=== PATIENT | male | born 1940 | race Caucasian/White ===

== ENCOUNTER → 2016-07-21 | Outpatient (CLI) | payer OTHER ==
[~2016-07-21] MED LIST: ASPCH81X PO; ATOR-26 PO; COEN150C PO; DOXA-10 PO; FINA5TAB PO; FURO-85 PO; LANS30CA63 PO; LEVO125T72 PO; METO25TA3 PO; NITR0.4S UT; OMEP40CA PO
--- NOTE | 2016-07-21 20:31 | DIAGNOSTIC IMAGING REPORT ---
CHEST 2 VIEWS ROUTINE CLINICAL HISTORY: FEVER, COUGH COMPARISON STUDY: 05/19/2014 FINDINGS: The cardiac and mediastinal contours remain stable. There is bilateral hilar prominence, similar to the prior study and likely secondary to prominent central pulmonary arteries. There is no acute parenchymal consolidation. There is no failure. There are no significant pleural effusions.[ IMPRESSION: No active disease in the chest. Electronically signed by: Jean Carlos Andujar M.D. 07/21/2016 8:29 PM Dictated Date/Time: 07/21/2016 8:29 PM
== END | disposition home or self-care (01) ==
LOC: C.RAD 20:01
PROVIDERS: ATTEND Hospitalist
DX: R50.9 Fever, unspecified (principal); R05 Cough

== ENCOUNTER 2024-01-08 21:20 | Inpatient (IN) ==
--- OUTSIDE RECORDS SUMMARY | 2024-01-08 21:27 | External Medical Summary | Summary of Care ---
Author Name Unknown Organization [facility] Address [address] [place] [address] Phone [phone] Care Team Providers Care Pipe Organ Builder Name Role Phone Ainsley Cho MD Primary Care Provider Reason for Visit * Reason Comments Medication Refill Encounter Details Date Type Department Care Team (Late st Contact Info) Description 01/06/2024 Refill [facility] [address] [place] [address] Ainsley Cho MD [address] [place] [address] Routine medical exam*; Gastroesophageal reflux disease without esophagitis; Encounter for long-term (current) use of medications Allergies Active Allergy Reactions Criticality Noted Date Comments Iodine 10/18/2003 Hives Meperidine And Related 10/18/2003 Hives Sulfa Antibiotics 02/04/1999 hives documented as of this encounter (statuses as of 01/06/2024) Medications Medication Sig Dispensed Refills Start Date End Date Status ASPIRIN 81 MG PO TBECIndications:jatinder es in the evening Take by mouth. Indications: takes in the evening 90 Tab 3 4 Active Diclofenac Sodium 1 % External Gel (Voltaren) Apply topically to affected area 4 times a day as needed for Pain. Apply to L knee 100 g 11 1 Active Triamcinolone Acetonide 0.1 % External Cream (Aristocort) Apply topically to affected area 2 times a day . To affected area. 80 g 5 2 Active Acetaminophen 500 MG Oral Tablet (Tylenol) 2 caps every 8 hours for 3 days, then 1 cap every 4 hours as needed for pain. Do not exceed 3000mg acetaminophen (Tylenol) every 24 hours. 1 Tablet 2 Active Nitroglycerin 0.4 MG Sublingual Tablet Sublingual (Nitrostat)Indicati ons:ASCVD (arteriosclerotic cardiovascular disease),Old myocardial infarct Place 1 Tablet under the tongue as needed for Pain, Chest. May repeat 3 times. If chest pain continues, call 911. 25 Tablet 5 3 Active Additional Information Patient not taking.Reported on 12/23/2022 Finasteride 5 MG Oral Tablet (Proscar)Indication s:Acute urinary retention Take 1 Tablet by mouth in the morning. 90 Tablet 3 3 Active predniSONE 50 MG Oral Tablet (Deltasone)Indicati ons:Malignant neoplasm of sigmoid colon (HCC) Take 1 tablet (50mg) by mouth 13 hours, 7 hours and [address] scan. 3 Tablet 3 Active diphenhydrAMINE HCl 25 MG Oral Capsule (Benadryl Allergy)Indications :Malignant neoplasm of sigmoid colon (HCC) Take 1 capsule (50mg) by mouth [address] scan. 2 Capsule 3 Active Metoprolol Succinate ER 25 MG Oral Tablet Extended Release 24 Hour (toPROL XL)Indications:ASCV D (arteriosclerotic cardiovascular disease),Frequent PVCs Take 1 Tablet by mouth daily. 90 Tablet 3 3 Active Furosemide 20 MG Oral Tablet (Lasix)Indications: ASCVD (arteriosclerotic cardiovascular disease),Heart failure, systolic, due to CAD (HCC) Take 1 Tablet by mouth once a day on Tuesday, Tuesday, and Tuesday only. 50 Tablet 3 3 Active Famotidine 20 MG Oral Tablet (Pepcid)Indications :Gastroesophageal reflux disease without esophagitis Take 1 Tablet by mouth in the morning. 90 Tablet 3 4 Active Atorvastatin Calcium 80 MG Oral Tablet (Lipitor)Indication s:Old myocardial infarct,ASCVD (arteriosclerotic cardiovascular disease),Kidney disease, chronic, stage III (GFR 30-59 ml/min) (HCC),Dyslipidemia, goal LDL below 100 TAKE ONE TABLET BY MOUTH EVERY MORNING 90 Tablet 3 4 08/30/19 25 Active Doxazosin Mesylate 8 MG Oral TabletIndications:H TN, goal below 130/80 Take 1 Tablet by mouth at bedtime. 90 Tablet 2 4 Active Levothyroxine Sodium 125 MCG Oral Tablet (Levoxyl)Indication s:Acquired hypothyroidism Take 1 Tablet by mouth in the morning. (at least 30 min prior to breakfast or other meds). 90 Tablet 1 4 Active Omeprazole 20 MG Oral Capsule Delayed Release (PriLOSEC)Indicatio ns:Gastroesophageal reflux disease without esophagitis Take 1 Capsule by mouth in the morning. 1 hour before the first meal of the day. 90 Capsule 4 Active Omeprazole 40 MG Oral Capsule Delayed Release (PriLOSEC)Indicatio ns:Gastroesophageal reflux disease with esophagitis Take one tablet by mouth daily. 10 Cap 1 01/06/20 24 Discontinu ed(Medicat ion List Clean Up) Omeprazole 20 MG Oral Capsule Delayed Release (PriLOSEC)Indicatio ns:Gastroesophageal reflux disease without esophagitis Take 1 Capsule by mouth in the morning. 1 hour before the first meal of the day. 90 Capsule 3 3 01/06/20 24 Discontinu ed(Refill) documented as of this encounter (statuses as of 01/06/2024) Active Problems Problem Noted Date Diagnosed Date Chronic kidney disease, stage 3a 07/20/2023 Colon cancer 04/30/2022 Post-op pain 04/30/2022 Hypertensive heart disease w ith systolic heart failure and stage 3a chronic kidney disease 07/14/2021 Other specified peripheral vascular diseases HTN, goal below 130/80 11/27/2020 Other emphysema 03/27/2020 Heart failure, systolic, due to CAD 08/30/2018 Chronic obstructive pulmonary disease 08/30/2018 Chronic kidney disease, stage 3 unspecified 06/2017 History of tobacco use 02/25/2017 Dyslipidemia, goal LDL below 70 08/25/2016 Frequent PVCs 11/07/2015 Inguinal hernia 11/07/2015 Sun-damaged skin 10/25/2013 DVT prophylaxis 10/16/2012 Gastroesophageal reflux disease without esophagi tis 04/17/2012 Elevated prostate specific antigen (PSA) 012 ASCVD (arteriosclerotic cardiovascular disease) 04/17/2012 Hypothyroidism 04/17/2012 Old myocardial infarct 04/17/2012 Calculus of ureter documented as of this encounter (statuses as of 01/06/2024) Resolved Problems Problem Noted Date Diagnosed Date Resolved Date Heart failure 11/27/2020 01/01/2021 Prediabetes 07/26/2017 08/26/2017 Overview: Per Prediabetes protocol #1 Influenza-like illness 08/14/201502/25 Kidney disease, chronic, sta ge III (GFR 30-59 ml/min) 07/08/2015 02/25/2017 DVT of upper extremity (deep vein thrombosis) 11/23/19 15 06/20/2015 Overview: Right upper extremity DVT Inflamed epidermoid cyst of skin 10/04/2014 07/08/2015 Kidney disease, chronic, sta ge III (GFR 30-59 ml/min) 10/04/2014 10/31/2014 Myocardial infarction, infer ior wall, subsequent care 05/27/2014 07/08/2015 Heart failure, systolic, due to CAD 05/27/2014 07/08/2015 Arm pain, right 05/27/2014 08/26/2014 DVT of axillary vein, acute right 05/27/2014 11/22/2014 Urinary retention 05/24/2014 07/08/2015 Sebaceous cyst 01/07/2014 02/25/2017 Microalbuminuria 10/26/2013 07/08/2015 Need for shingles vaccine 10/25/2013 Dermatitis 05/17/2013 02/25/2017 Refused influenza vaccine 04/26/2013 Cough 10/17/2012 02/25/2017 COPD exacerbation 08/22/2012 04/25/2014 Cough 08/22/2012 02/25/2017 Allergic rhinitis 04/17/2012 08/23/2018 Routine medical exam 09/28/2011 017 Neoplasm of uncertain behavior of skin 09/28/2011 02/25/2017 Overview: left posterior scalp Dyslipidemia, goal LDL below 100 09/28/2011 02/25/2017 Tobacco pipe smoker 09/28/2011 04/26/20 13 OVERWEIGHT, BMI= 25.99 09/14/10 09/14/2010 02/25/2017 OVERWEIGHT, BMI= 26.55 08/19/09 08/19/2009 02/25/2017 Tobacco use disorder 08/19/2009 012 Routine medical exam 08/19/2009 016 Acute URI 08/19/2009 02/25/2017 ADVANCE DIRECTIVE INFORMATION 12/21/2004 02/25/2017 Overview: Yes, Patient instructed to provide copy of advance directive for provider to review and to be scanned into Electronic Medical Record Elevated prostate specific antigen (PSA) 12/06/2002 04/17/2012 Benign prostatic hyperplasia 12/06/2002 08/19/2009 Overview: ICD-10 update of inactive term ICD-10 update of inactive term Nocturia 12/06/2002 02/25/2017 Old myocardial infarct 02/11/199904/17 ASCVD (arteriosclerotic card iovascular disease) 04/17/2012 Dyslipidemia, goal LDL below 70 09/28/2011 Hypothyroidism 04/17/2012 Esophageal reflux 04/17/2012 Kidney disease, chronic, sta ge III (GFR 30-59 ml/min) 04/17/2012 Kidney disease, chronic, sta ge III (GFR 30-59 ml/min) 02/27/2016 documented as of this encounter (statuses as of 01/06/2024) Immunizations Name Administration Dates Next Due COVID-19 mRNA, LNP-s, No Pre serve, 2-Dose Series (Pfizer) 10/18/2020,09/26/2020 Pneumococcal Conjugate Vacc, 13 Valent (Prevnar) 08/25/2016 Pneumococcal Polysaccharide PPV23 (Pneumovax) Season Influenza, Quad, PF, Adjuvanted, 65+ Yrs, IM (FLUAD) 03/27/2020 Seasonal Influenza, PF, 6 M & above, IM , (FluLaval or Fluzone) 03/05/2019,02/28/2018 Seasonal Influenza, Quadrivalent Hd (Fluzone Hd) 04/01/2023,07/14/2022 Seasonal Influenza, Quadrivalent, No Preserve, I M 02/25/2017,02/26/2016 TD - Tetanus/Diptheria (ADULT) 07/08/2006 TDAP (age 10 and older)(Boostrix) 07/08/2016 documented as of this encounter Social History Tobacco Use Types Packs/Day Years Used Date Smoking Tobacco: Former Cigarettes 0.5 55 0 08/14/1957 - 08/14/2012 Pipe Cigars Passive Smoke Exposure: Never Smokeless Tobacco: Never Alcohol Use Standard Drinks/Week Comments Yes 0 (1 standard drink = 0.6 oz pur e alcohol) once or twice a year PHQ-2 Answer Date Recorded PHQ-2 Score 0 12/04/2019 Hunger Vital Sign Answer Date Recorded Worried About Running Out of Food in the Last Ye ar Never true 12/04/2019 Ran Out of Food in the Last Year Never true 12/04/2019 Sex and Gender Information Value Date Recorded Sex Assigned at Male 12/04/2019 3:47 PM EDT Gender Identity Male 12/04/2019 3:47 PM EDT Sexual Orientation Straight 12/04/2019 3: 47 PM EDT Job Start Date Occupation Industry Not on file Not on file Not on file documented as of this encounter Functional Status Functional Status Response Date of Assess ment Are you deaf or do you have serious difficulty h earing? No 04/28/2022 Are you blind or do you have serious difficulty seeing, even when wearing glasses? No 04/28/2022 Do you have serious difficul ty walking or climbing stairs? (5 years old or older) No 04/28/2022 Do you have difficulty dress ing or bathing? (5 years old or older) No 04/28/2022 Because of a physical, menta l, or emotional condition, do you have difficulty doing errands alone such as visiting a doctor s office or shopping? (15 years old or older) No 04/28/20 22 Cognitive Status Response Date of Assessm ent Because of a physical, menta l, or emotional condition, do you have serious difficulty concentrating, remembering, or making decisions? (5 years old or older) No 04/28/2022 documented as of this encounter Miscellaneous Notes * Telephone Encounter - Adeline Lopez, [facility] - 01/06/2024 8:13 AM EDT Signed Prescriptions: Disp Refills Omeprazole 20 MG Oral Capsule Delayed Rele*90 Cap*0 Sig: Take 1 Capsule by mouth in the morning. 1 hour before the first meal of the day. Authorizing Provider: AINSLEY CHO Ordering User: CHELI ADELINEADRIÁN OJEDA * Telephone Encounter - Adeline Lopez [facility] - 01/06/2024 8:11 AM EDT RX authorized. Zero refills given until upcoming appt. 01/18/2024 Thank you, Adeline Lopez, PharmD Clinical Pharmacist [facility] 01/06/24 8:12 AM [phone] documented in this encounter Plan of Treatment Upcoming Encounters Date Type Department Care Team (Latest Contact Info) Description 01/11/2024 9:30 AM EDT Laboratory Laboratory, [place] [address] [facility] [place] [phone] [facility] [address] [place] [address] 01/18/2024 3:40 PM EDT Office Visit [facility] [address] [place] [facility] [place] [id number] Ainsley Cho MD [address] [place] [address] 01/24/2024 11:45 AM EDT Hospital Encounter ENDO [facility], Endoscopy Room [facility] [address] [facility] [place] [phone] Meredith Silverio MD [address] [place] [address] 01/24/2024 11:45 AM EDT - 01/24/2024 12:15 PM EDT Surgery ENDO [facility], Endoscopy Room [facility] [address] [place] [phone] Meredith Silverio MD [address] [place] [address] COLONOSCOPY FLEXIBLE PROXIMAL DIAGNOSTIC 01/30/2024 10:30 AM EDT Office Visit Hematology/Oncolog y [facility] [place] [address] [place] [phone] Kylah Flores MD [address] [place] [address] 12/28/2024 10:00 AM EDT Nurse Only Ancillary Department, [address] [address] [place], Nurse [facility] [address] [place] [address] Scheduled Orders Name Type Priority Associated Diagnoses Orde r Schedule VITAMIN B12 Lab Routine Routine medical exam Encounter for long-term (current) use of medications Expected: 01/20/2024 (Approximate), Expires: 01/05/2025 MAGNESIUM Lab Routine Routine medical exam Encounter for long-term (current) use of medications Expected: 01/20/2024 (Approximate), Expires: 01/05/2025 Scheduled Procedures Name Priority Associated Diagnoses Date/Ti me COLONOSCOPY FLEXIBLE PROXIMAL DIAGNOSTIC Malignant neoplasm of sigmoid colon (HCC) 01/24/2024 11:45 AM EDT Health Maintenance Due Date Last Done Comments Alpha-1 Antitrypsin 1958 Zoster Vaccines (1 of 2) 1990 Albumin/Creatinine Ratio 01/11/2023 022, 01/05/2021, 09/04/2018, Additional history exists CKD PHOS USE SMARTSET 36587 01/11/2023 08/0 06/2021, 11/27/2020, 12/04/2019, Additional history exists FOBT ANNUALLY,AGES 18-90 01/18/2023 022, 01/18/2022, 08/26/2017 (Refused), Additional history exists COVID-19 Vaccine ( season) 2023 10/18/2020, 09/26/2020 GFR 11/30/2023 05/31/2023, 0901/2023, 11/23/2022, Additional history exists *CXR OR CT FOR COPD EVER 12/25/2023 TSH 01/13/2024 01/12/2023, 11/11, 07/21/2022, Additional history exists Influenza Vaccine (FLU shot) (#1) 2024 04/01/2023, 07/14/2022, 03/27/2020, Additional history exists CKD HGB USE SMARTSET 07684 05/31/202405/31, 05/31/2023, 11/23/2022, Additional history exists Depression Screening 12/26/2024 12/27/2023, 10/05/19 15 O2 ASSESSMENT COMPLETED IN PAST YEAR FOR COPD 12/26/2024 12/27/2023 DTaP,Tdap,and Td Vaccines (2 - Td or Tdap) 07/08/2026 07/08/2016, 07/08/2006, 06/13/1988 Pneumococcal Vaccine: 65+ Years Completed 02/28/2018, 08/25/2016 HPV (Gardasil) Vaccine Aged Out No lo nger eligible based on patient's age to complete this topic Hepatitis B Vaccine Aged Out No longe r eligible based on patient's age to complete this topic MENINGOCOCCAL (MENACTRA/MENVEO) Aged Out No longer eligible based on patient's age to complete this topic documented as of this encounter Medical Devices Implanted Type Area Completion Supervisor Device Identifier Shelf Expiration Date Model / Serial / Lot Lens Intraoc 21.5 - [id number] - [id number] Implanted:Qty: 1 on 02/12/2020 by Andrae Chan MD at OR [facility] Left: Eye [employer] 08/10/2024 [id number] / [id number] / Sofport Implanted:Qty: 1 on 02/26/2020 by Andrae Chan MD at [facility] Right: Eye 07/13/2024 [id number] / [id number] / [id number] documented as of this encounter Visit Diagnoses Diagnosis Routine medical exam- Primary Routine general medical examination at a health care facility Gastroesophageal reflux disease without esophagitis Esophageal reflux Encounter for long-term (current) use of medications Encounter for long-term (current) use of other medications Malignant neoplasm of sigmoid colon (HCC) Malignant neoplasm of sigmoid colon documented in this encounter Advance Directives * Full Code (Latest Code Status on File) Date Activated Date Inactivated Comments 04/28/2022 7:58 PM 04/30/2022 5:20 PM Question Answer Comments Discussion of Advance Direct jay occurred with: Not Discussed due to patient's condition Care Teams Pipe Organ Builder Relationship Specialty Start Date End Date Ainsley Cho MD [address] [place] [facility] [place] [address] PCP - General Family Medicine 10/20/17 documented as of this encounter
--- OUTSIDE RECORDS SUMMARY | 2024-01-08 21:27 | External Medical Summary | Summary of Care ---
Author Name Unknown Organization [facility] Address [address] [place] [address] Phone [phone] Care Team Providers Care Male Model Name Role Phone Ainsley Cho MD Primary Care Provider [phone] Reason for Referral * Ancillary Services (Within 30 days (routine)) - Authorized Specialty Diagnoses / Procedures Referred By Contac t Referred To Contact Gastroenterology Diagnoses Malignant neoplasm of colon, unspecified part of colon (HCC) Ainsley Cho MD [address] [place] [address] Referral ID Status Reason Start Date Expiration Date Visits Requested Visits Authorized [id number] Authorized Ancillary Services Required 01/04/2024 999 999 Question Answer Referral Priority Within 30 days (routine) Where should this appointment be scheduled? So Comments ALERT: Do not order for pediatric patients (18 years or younger). Cancel off screen and order PEDS GASTROENTEROLOGY CONSULT (Type: 1 visit only-Evaluate and Treat) The following Pt. Instructions are available: - Gastro Colonoscopy Prep Instructions [[id number]] - Gastro Colonoscopy Prep Instructions (Estonian Version) [[id number]] Go to the Pt. Instructions section within the Visit Navigator to access. Colonoscopy ASGE Guidelines: Postcancer resection (Clear colon, then in 1 yr, then 3 yr, then 5 yr) ADDITIONAL INFORMATION 1. Is the patient on Coumadin? No 2. Is the patient on Pradaxa? No Reason for Visit * Reason Onset Date Comments Order Request 01/04/2024 Encounter Details Date Type Department Care Team (Late st Contact Info) Description 01/04/2024 Telephone Gastroenterology, [facility] [address] [place] [address] Meredith Silverio MD [address] [place] [address] Order Request Allergies Active Allergy Reactions Criticality Noted Date Comments Iodine 10/18/2003 Hives Meperidine And Related 10/18/2003 Hives Sulfa Antibiotics 02/04/1999 hives documented as of this encounter (statuses as of 01/04/2024) Medications Medication Sig Dispensed Refills Start Date End Date Status ASPIRIN 81 MG PO TBECIndications:take s in the evening Take by mouth. Indications: takes in the evening 90 Tab 3 10/25/2013 Active Diclofenac Sodium 1 % External Gel (Voltaren) Apply topically to affected area 4 times a day as needed for Pain. Apply to L knee 100 g 11 01/23/2021 Active Omeprazole 40 MG Oral Capsule Delayed Release (PriLOSEC)Indication s:Gastroesophageal reflux disease with esophagitis Take one tablet by mouth daily. 10 Cap 02/02/2021 Active Triamcinolone Acetonide 0.1 % External Cream (Aristocort) Apply topically to affected area 2 times a day . To affected area. 80 g 5 08/07/2021 Active Acetaminophen 500 MG Oral Tablet (Tylenol) 2 caps every 8 hours for 3 days, then 1 cap every 4 hours as needed for pain. Do not exceed 3000mg acetaminophen (Tylenol) every 24 hours. 1 Tablet 04/30/2022 Active Nitroglycerin 0.4 MG Sublingual Tablet Sublingual (Nitrostat)Indicatio ns:ASCVD (arteriosclerotic cardiovascular disease),Old myocardial infarct Place 1 Tablet under the tongue as needed for Pain, Chest. May repeat 3 times. If chest pain continues, call 911. 25 Tablet 5 10/05/2022 Active Additional Information Patient not taking.Reported on 12/23/2022 Finasteride 5 MG Oral Tablet (Proscar)Indications :Acute urinary retention Take 1 Tablet by mouth in the morning. 90 Tablet 3 01/12/2023 Active Omeprazole 20 MG Oral Capsule Delayed Release (PriLOSEC)Indication s:Gastroesophageal reflux disease without esophagitis Take 1 Capsule by mouth in the morning. 1 hour before the first meal of the day. 90 Capsule 3 01/12/2023 Active predniSONE 50 MG Oral Tablet (Deltasone)Indicatio ns:Malignant neoplasm of sigmoid colon (HCC) Take 1 tablet (50mg) by mouth 13 hours, 7 hours and [address] scan. 3 Tablet 02/16/2023 Active diphenhydrAMINE HCl 25 MG Oral Capsule (Benadryl Allergy)Indications: Malignant neoplasm of sigmoid colon (HCC) Take 1 capsule (50mg) by mouth [address] scan. 2 Capsule 02/16/2023 Active Metoprolol Succinate ER 25 MG Oral Tablet Extended Release 24 Hour (toPROL XL)Indications:ASCVD (arteriosclerotic cardiovascular disease),Frequent PVCs Take 1 Tablet by mouth daily. 90 Tablet 3 03/03/2023 Active Furosemide 20 MG Oral Tablet (Lasix)Indications:A SCVD (arteriosclerotic cardiovascular disease),Heart failure, systolic, due to CAD ([facility]) Take 1 Tablet by mouth once a day on Tuesday, Tuesday, and Tuesday only. 50 Tablet 3 04/04/2023 Active Famotidine 20 MG Oral Tablet (Pepcid)Indications: Gastroesophageal reflux disease without esophagitis Take 1 Tablet by mouth in the morning. 90 Tablet 3 07/20/2023 Active Atorvastatin Calcium 80 MG Oral Tablet (Lipitor)Indications :Old myocardial infarct,ASCVD (arteriosclerotic cardiovascular disease),Kidney disease, chronic, stage III (GFR 30-59 ml/min) ([facility]),Dyslipidemia, goal LDL below 100 TAKE ONE TABLET BY MOUTH EVERY MORNING 90 Tablet 3 08/30/2023 Active Doxazosin Mesylate 8 MG Oral TabletIndications:HT N, goal below 130/80 Take 1 Tablet by mouth at bedtime. 90 Tablet 2 10/31/2023 Active Levothyroxine Sodium 125 MCG Oral Tablet (Levoxyl)Indications :Acquired hypothyroidism Take 1 Tablet by mouth in the morning. (at least 30 min prior to breakfast or other meds). 90 Tablet 1 11/23/2023 Active documented as of this encounter (statuses as of 01/04/2024) Active Problems Problem Noted Date Diagnosed Date [...] as of this encounter (statuses as of 01/04/2024) Resolved Problems Problem Noted Date Diagnosed Date [...] as of this encounter (statuses as of 01/04/2024) Immunizations Name Administration Dates Next Due COVID-19 mRNA, LNP-s, No Pre serve, 2-Dose Series (Pfizer) 10/18/2020,09/26/2020 Diptheria/Tetanus (Adult) 06/13/1988 Pneumococcal Conjugate Vacc, 13 Valent (Prevnar) 08/25/2016 [...] (15 years old or older) No 04/28/20 Cognitive Status Response Date of Assessm ent Because of a physical, menta l, or emotional condition, do you have serious difficulty concentrating, remembering, or making decisions? (5 years old or older) No 04/28/2022 documented as of this encounter Miscellaneous Notes * Addendum Note - Ainsley Cho MD - 01/04/2024 2:01 PM EDTAddended by: AINSLEY CHO on: 01/04/2024 02:01 PM Modules accepted: Orders * Telephone Encounter - Ainsley Cho MD - 01/04/2024 2:01 PM EDT Order for colonoscopy placed. * Telephone Encounter - Tami Carter OSA - 01/04/2024 12:13 PM EDT Colonoscopy order has . Patient scheduled 01/24/[address] new order. documented in this encounter Plan of Treatment Upcoming Encounters Date Type Department Care Team (Latest Contact Info) Description 01/11/2024 9:30 AM EDT [facility] [address] [place] [facility] [place] [id number] [place], [facility] [address] [facility] [place] [address] 01/18/2024 3:40 PM EDT [facility] [address] [place] [phone] Ainsley Cho MD [address] [place] [address] 01/24/2024 11:45 AM EDT Hospital Encounter ENDO [facility], Endoscopy Room [facility] [address] [facility] [place] [phone] Meredith Silverio MD [address] [place], [place] [id number] 01/24/2024 11:45 AM EDT - 01/24/2024 12:15 PM EDT Surgery ENDO [facility], Endoscopy Room [facility] [address] [facility] [place] [phone] Meredith Silverio MD [address] [place], [place] [id number] COLONOSCOPY FLEXIBLE PROXIMAL DIAGNOSTIC 01/30/2024 10:30 AM EDT Office Visit Hematology/Oncolog y [facility] [address] [place] [phone] Kylah Flores MD [address] [facility] [place] [address] 12/28/2024 10:00 AM EDT Nurse Only Ancillary Department, [place] [id number] [place] [address] [place], [facility] [address] [place] [address] Scheduled Procedures Name Priority Associated Diagnoses Date/Ti me COLONOSCOPY FLEXIBLE PROXIMAL DIAGNOSTIC Malignant neoplasm of sigmoid colon (HCC) 01/24/2024 11:45 AM EDT Scheduled Referrals Name Type Priority Associated Diagnoses Orde r Schedule COLONOSCOPY, GI REFERRAL OP Referral Within 30 days (routine) Malignant neoplasm of colon, unspecified part of colon (HCC) Ordered: 01/04/2024 Health Maintenance Due Date Last Done Comments Alpha-1 Antitrypsin 1958 Zoster Vaccines (1 of 2) 1990 Albumin/Creatinine Ratio 01/11/2023 022, 01/05/2021, 09/04/2018, Additional history exists CKD PHOS USE SMARTSET 17041 01/11/2023 08/0 06/2021, 11/27/2020, 12/04/2019, Additional history exists FOBT ANNUALLY,AGES 18-90 01/18/2023 022, 01/18/2022, 08/26/2017 (Refused), Additional history exists COVID-19 Vaccine (2022- season) 2023 10/18/2020, 09/26/2020 GFR 11/30/2023 05/31/2023, 01/2023, 11/23/2022, Additional history exists *CXR OR CT FOR COPD EVER 12/25/2023 TSH 01/13/2024 01/12/2023, 11/11, 07/21/2022, Additional history exists Influenza Vaccine (FLU shot) (#1) 2024 04/01/2023, 07/14/2022, 03/27/2020, Additional history exists CKD HGB USE SMARTSET 46491 05/31/202405/31, 05/31/2023, 11/23/2022, Additional history exists Depression [...] this encounter Medical Devices Implanted Type Area Supervisor [employer] Device Identifier Shelf Expiration Date Model / Serial / Lot Lens Intraoc 21.5 - [id number] - [id number] Implanted:Qty: 1 on 02/12/2020 by Andrae Chan MD at OR [facility] Left: Eye [employer]CH [employer] LOM[employer] 08/10/2024 [id number] / [id number] / Sofport Implanted:Qty: 1 on 02/26/2020 by Andrae Chan MD at OR [facility] Right: Eye 07/13/2024 [id number] / [id number] / [id number] documented as of this encounter Visit Diagnoses Diagnosis Malignant neoplasm of colon, unspecified part of colon (HCC)- Primary Malignant neoplasm of sigmoid colon (HCC) Malignant neoplasm of sigmoid colon documented in this encounter Advance Directives * Full Code (Latest Code Status on File) Date Activated Date Inactivated Comments 04/28/2022 7:58 PM 04/30/2022 5:20 PM Question Answer Comments Discussion of Advance Direct jay occurred with: Not Discussed due to patient's condition Care Teams Male Model Relationship Specialty Start Date End Date Ainsley Cho MD [address] [place] [address] PCP - General Family Medicine 10/20/17 documented as of this encounter
--- OUTSIDE RECORDS SUMMARY | 2024-01-08 21:27 | External Medical Summary | Summary of Care ---
Author Name Unknown Organization [facility] Address [address] [place] [address] Phone [phone] Care Team Providers Care Form Presser Name Role Phone Delmer Cho MD Primary Care Provider [phone] Reason for Visit * Reason Comments Adult Annual Wellness Visit, Initial Vis it Encounter Details Date Type Department Care Team (Late st Contact Info) Description 12/27/2023 10:00 AM EDT Nurse Only Ancillary Department, [facility] [address] [place] [address] [place], Nurse Annual Wellness [address] [place] [address] Adult Annual Wellness Visit, Initial Visit Allergies Active Allergy Reactions Criticality Noted Date Comments Iodine 10/18/2003 Hives Meperidine And Related 10/18/2003 Hives Sulfa Antibiotics 02/04/1999 hives documented as of this encounter (statuses as of 12/27/2023) Medications Medication Sig Dispensed Refills Start Date [...] disease, chronic, stage III (GFR 30-59 ml/min) ([facility]),Dyslipidemia, goal LDL below 100 TAKE ONE TABLET [...] as of this encounter (statuses as of 12/27/2023) Active Problems Problem Noted Date Diagnosed Date [...] as of this encounter (statuses as of 12/27/2023) Resolved Problems Problem Noted Date Diagnosed Date [...] as of this encounter (statuses as of 12/27/2023) Immunizations Name Administration Dates Next Due COVID-19 [...] on file documented as of this encounter Last Filed Vital Signs Vital Sign Reading Time Taken Comments Blood Pressure 116/62 12/27/2023 10:20 AM EDT Pulse 58 12/27/2023 10:20 AM EDT Temperature 36.3 C (97.4 F) 12/27/2023 1 0:20 AM EDT Respiratory Rate - - Oxygen Saturation 94% 12/27/2023 10: 20 AM EDT Inhaled Oxygen Concentration - - Weight 79.3 kg (174 lb 14.4 oz) 024 10:20 AM EDT Height 170.2 cm (5' 7") 12/27/2023 10:2 0 AM EDT Body Mass Index 27.39 12/27/2023 10:20 AM EDT documented in this encounter Functional Status Functional Status Response [...] No 04/28/2022 documented as of this encounter Patient Instructions * Patient Instructions* Brooke Rogel RN - 12/27/2023 10:37 AM EDT Hi Mr. Pope, As your primary care physician, I know that regular visits with my patients who have several chronic conditions can go a long way in helping you stay healthy. Many times, the clinic team and I are in touch with you and/or other care team members between office visits to adjust medications, discuss any changes in your health, and review our care plan to make sure it is still meeting your needs. I am dedicated to helping you take a more active role in your overall care. It is important that there are resources available to you, so I created a personalized plan of care with a Health Calendar for you, which is included on the next page of this letter. Below is a list that summarizes your electronic health record: Health Maintenance Due: Health Maintenance Due Topic Date Due Alpha-1 Antitrypsin Never done Zoster Vaccines (1 of 2) Never done Albumin/Creatinine Ratio 01/11/2023 CKD PHOS USE SMARTSET 51189 01/11/2023 FOBT ANNUALLY,AGES 18-90 01/18/2023 COVID-19 Vaccine (2022-24 season) 2023 GFR 11/30/2023 *CXR OR CT FOR COPD EVER Never done TSH 01/13/2024 Current Medication List: (as of Visit date not found (in office), Visit date not found (telemedicine) ) Current Outpatient Medications Medication Sig Dispense Refill ASPIRIN 81 MG PO TBEC Take by mouth. Indications: takes in the evening 90 Tab 3 Diclofenac Sodium 1 % External Gel (Voltaren) Apply topically to affected area 4 times a day asneeded for Pain. Apply to L knee 100 g 11 Triamcinolone Acetonide 0.1 % External Cream (Aristocort) Apply topically to affected area 2 times a day . To affected area. 80 g 5 Acetaminophen 500 MG Oral Tablet (Tylenol) 2 caps every 8 hours for 3 days, then 1 cap every 4 hours as needed for pain. Do not exceed 3000mg acetaminophen (Tylenol) every 24 hours. 1 Tablet 0 Finasteride 5 MG Oral Tablet (Proscar) Take 1 Tablet by mouth in the morning. 90 Tablet 3 Omeprazole 20 MG Oral Capsule Delayed Release (PriLOSEC) Take 1 Capsule by mouth in the morning. 1 hour before the first meal of the day. 90 Capsule 3 Metoprolol Succinate ER 25 MG Oral Tablet Extended Release 24 Hour (toPROL XL) Take 1 Tablet bymouth daily. 90 Tablet 3 Furosemide 20 MG Oral Tablet (Lasix) Take 1 Tablet by mouth once a day on Tuesday, Tuesday, and Tuesday only. 50 Tablet 3 Famotidine 20 MG Oral Tablet (Pepcid) Take 1 Tablet by mouth in the morning. 90 Tablet 3 Atorvastatin Calcium 80 MG Oral Tablet (Lipitor) TAKE ONE TABLET BY MOUTH EVERY MORNING 90 Tablet 3 Levothyroxine Sodium 125 MCG Oral Tablet (Levoxyl) Take 1 Tablet by mouth in the morning. (at least 30 min prior to breakfast or other meds). 90 Tablet 1 Omeprazole 40 MG Oral Capsule Delayed Release (PriLOSEC) Take one tablet by mouth daily. 10 Cap0 Nitroglycerin 0.4 MG Sublingual Tablet Sublingual (Nitrostat) Place 1 Tablet under the tongue as needed for Pain, Chest. May repeat 3 times. If chest pain continues, call 911. (Patient not taking: Reported on 12/23/2022) 25 Tablet 5 predniSONE 50 MG Oral Tablet (Deltasone) Take 1 tablet (50mg) by mouth 13 hours, 7 hours and [address] scan. 3 Tablet 0 diphenhydrAMINE HCl 25 MG Oral Capsule (Benadryl Allergy) Take 1 capsule (50mg) by mouth [address] scan. 2 Capsule 0 Doxazosin Mesylate 8 MG Oral Tablet Take 1 Tablet by mouth at bedtime. 90 Tablet 2 No current facility-administered medications for this visit. Current List of Allergies: (as of Visit date not found (in office), Visit date not found (telemedicine) ) Review of patient's allergies indicates: Allergen Reactions Iodine Hives Meperidine And Related Hives Sulfa Antibiotics hives Most Recent Lab Results: Results for orders placed or performed in visit on 07/13/23 CEA Result Value Ref Range CEA 1.0 <=5.2 ng/mL Sincerely, Delmer Cho MD 12/27/2023 [facility] (as of Visit date not found (in office), Visit date not found (telemedicine) ) Care needs Care needs Last completed Due next Alpha-1 Antitrypsin --- Never done Zoster (Shingles) Vaccine (1 of 2) --- Never done Urine albumin/creatinine test 01/11/2022 01/11/2023 Yearly stool sample test for blood (ages 18-90) 01/18/2022 01/18/2023 COVID-19 Vaccine (3 - 2022-24 season) 2020 02/11/2023 Kidney Function Test 05/31/2023 11/30/2023 COPD chest X-ray --- Never done Yearly thyroid level check 01/12/2023 01/13/2024 Flu vaccine (recommended) (1) 04/01/2023 02/12/2024 Yearly COPD oxygen test 07/20/2023 07/20/2024 Diphtheria, tetanus & pertussis vaccines (2 - Td or Tdap) 07/08/2016 07/08/2026 As you look over the recommended services, be sure to check with your insurance company to determine what's covered. [employer] is a great tool that helps you review your medical record online, including test results, doctor notes and your health summary. You can also schedule appointments with me and other members of your care team, request prescription refills and ask for advice related to your medical conditions at [employer]. documented in this encounter Progress Notes * Brooke Rogel RN - 12/27/2023 10:24 AM EDT AD8 Dementia Screening Interview Person answering questions: patient Remember, "Yes, a change" indicates that there has been a change in the last several years caused by cognitive (thinking and memory) problems 1. Problems with judgement (eg: problems making decisions, bad financial decisions, problems with thinking). No (0) 2. Less interest in hobbies/activities. No (0) 3. Repeats the same things over and over (questions, stories, or statements). No (0) 4. Trouble learning how to use a tool, appliance, or gadget (eg: VCR, computer, microwave, remote control). No (0) 5. Forgets correct month or year. No (0) 6. Trouble handling complicated financial affairs (eg: balancing checkbook, income taxes, paying bills). No (0) 7. Trouble remembering appointments. No (0) 8. Daily problems with thinking and/or memory. No (0) TOTAL AD8: 0 - AD8 Dementia Screening Score The final score is a sum of the number items marked "Yes, A Change". 0 - 1: Normal cognition; 2 or greater: Cognitive impairments is likely to be present - further testing required Adult Annual Wellness Visit: Bora Pope is a 83 year old male who presents for an Adult Annual Wellness Visit. Depression Screening: Did the patient complete the screening questionnaire for Depression? Yes Is the patient's total score for Depression 15 or greater? No, no further intervention needed, unless requested by patient. Did the patient answer positively to the suicide question? No, no further intervention needed, unless requested by patient. In general, compared to other people your age, what would you say that your health is? Good Ht Readings from Last 1 Encounters: 12/27/23 1.702 m (5' 7") Wt Readings from Last 1 Encounters: 12/27/23 79.3 kg (174 lb 14.4 oz) Body Mass Index: BMI Less than 30 Body mass index is 27.39 kg/m. 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 Calculus of ureter Dyslipidemia, goal LDL below 70 Elevated prostate specific antigen (PSA) Esophageal reflux Heart failure (HCC) 11/27/2020 Hypothyroidism Kidney disease, chronic, stage III (GFR 30-59 ml/min) (HCC) 08/2017 Old myocardial infarct 2013 Past Surgical History: Procedure Laterality Date COLONOSCOPY, DIAGNOSTIC (RECTUM) 01/18/2022 Malignant partially obstructing tumor - carcinoma / COLONOSCOPY FLEXIBLE PROXIMAL DIAGNOSTIC performed by Lucero Hassan DO at ENDOSCOPY [facility] CYSTOSCOPY 02/09/2016 INFORMATION 06/13/1973 Alison Montgomery removal of calcium deposit under left arm LAPAROSCOPIC PARTIAL COLECTOMY W/COLOPROCTOSTOMY N/A 04/28/2022 ROBOTIC LAPAROSCOPIC PARTIAL COLECTOMY WITH COLOPROCTOSTOMY performed by Flavia Garcia MD at [place] [facility] [place] NEEDLE/PUNCH BIOPSY OF PROSTATE 06/13/1973 Prostate,Needle/Punch Biopsy [facility] [place] NEEDLE/PUNCH BIOPSY OF PROSTATE 06/13/2001 Prostate,Needle/Punch Biopsy [facility] REMOVE CALCIUM DEPOSITS, OPEN REMOVE CATARACT, INSERT LENS PROSTH Left 02/12/2020 LEFT EXTRACAPSULAR CATARACT REMOVAL WITH INTRAOCULAR LENS performed by Andrae Chan MD at OR [facility] REMOVE CATARACT, INSERT LENS PROSTH Right 02/26/2020 RIGHT EXTRACAPSULAR CATARACT REMOVAL WITH INTRAOCULAR LENS performed by Andrae Chan MD at OR [facility] REMOVE TONSILS & ADENOIDS, UNDER 12 06/13/1948 T & A, age<12 [place] REPAIR INITIAL INGUINAL HERNIA REDUCIBLE AGE 5 OR MORE 11/17/2015 repair of right indirect inguinal hernia w/mesh [facility] Dr. Gutierrez 11/17/15 UPPER ENDOSCOPY GI REFERRAL OP 01/03/2006 US TRANSRECTAL AND BIOPSY 12/23/2009 Family History Problem Relation Name Age of Onset Diabetes Sister Diabetes Sister Diabetes Brother Heart Disorder Father CABG Cancer Father prostate ca Cancer Mother bone marrow Mental Disorder Sister NERVOUS BREAKDOWN Has patient ever had cancer? History of cancer, type: Colon Social History Tobacco Use Smoking status: Former Current packs/day: 0.00 Average packs/day: 0.5 packs/day for 55.0 years (27.5 ttl pk-yrs) Types: Pipe, Cigarettes, Cigars Start date: 08/14/1957 Quit date: 08/14/2012 Years since quittin.3 Passive exposure: Never Smokeless tobacco: Never Substance Use Topics Alcohol use: Yes Comment: once or twice a year Vaping/E-Cigarette Use Vaping/E-Cigarette Use Never Assessed Vaping/E-Cigarette Substances Vaping/E-Cigarette Devices Tobacco/Alcohol screening completed today? Yes Hospital Care: Admissions (within the last year): Not Applicable ER within 30 days: No Does the patient have an Advance Directives/Living Will? No. Does the patient want information? Yes. Information given to patient Advance Care Planning is important to all adults. Discussed the process of thinking and talking about future healthcare decisions. ACP form and pamphlet given to patient to take home and discuss withfamily. Once form is completed, patient to get a copy to us to scan into their chart. Last Physical Exam: Last physical exam: 07/2023 Does patient see primary provider regularly? Yes Does patient see other providers? Yes, Specialist Patient Care Team updated? Yes Review of patient's allergies indicates: Allergen Reactions Iodine Hives Meperidine And Related Hives Sulfa Antibiotics hives Immunization History Administered Date(s) Administered COVID-19 mRNA, LNP-s, No Preserve, 2-Dose Series (Pfizer) 09/26/2020, 10/18/2020 Diptheria/Tetanus (Adult) 06/13/1988 Pneumococcal Conjugate Vacc, 13 Valent (Prevnar) 08/25/2016 Pneumococcal Polysaccharide PPV23 (Pneumovax) 02/28/2018 Season Influenza, Quad, PF, Adjuvanted, 65+ Yrs, IM (FLUAD) 03/27/2020 Seasonal Influenza, PF, 6 M & above, IM , (FluLaval or Fluzone) 02/28/2018, 03/05/2019 Seasonal Influenza, Quadrivalent Hd (Fluzone Hd) 07/14/2022, 04/01/2023 Seasonal Influenza, Quadrivalent, No Preserve, IM 02/26/2016, 02/25/2017 TD - Tetanus/Diptheria (ADULT) 07/08/2006 TDAP (age 10 and older)(Boostrix) 07/08/2016 Current Outpatient Medications Medication Sig Dispense Refill ASPIRIN 81 MG PO TBEC Take by mouth. Indications: takes in the evening 90 Tab 3 Diclofenac Sodium 1 % External Gel (Voltaren) Apply topically to affected area 4 times a day as needed for Pain. Apply to L knee 100 g 11 Triamcinolone Acetonide 0.1 % External Cream (Aristocort) Apply topically to affected area 2 times a day . To affected area. 80 g 5 Acetaminophen 500 MG Oral Tablet (Tylenol) 2 caps every 8 hours for 3 days, then 1 cap every 4 hours as needed for pain. Do not exceed 3000mg acetaminophen (Tylenol) every 24 hours. 1 Tablet 0 Finasteride 5 MG Oral Tablet (Proscar) Take 1 Tablet by mouth in the morning. 90 Tablet 3 Omeprazole 20 MG Oral Capsule Delayed Release (PriLOSEC) Take 1 Capsule by mouth in the morning. 1 hour before the first meal of the day. 90 Capsule 3 Metoprolol Succinate ER 25 MG Oral Tablet Extended Release 24 Hour (toPROL XL) Take 1 Tablet by mouth daily. 90 Tablet 3 Furosemide 20 MG Oral Tablet (Lasix) Take 1 Tablet by mouth once a day on Tuesday, Tuesday, and Tuesday only. 50 Tablet 3 Famotidine 20 MG Oral Tablet (Pepcid) Take 1 Tablet by mouth in the morning. 90 Tablet 3 Atorvastatin Calcium 80 MG Oral Tablet (Lipitor) TAKE ONE TABLET BY MOUTH EVERY MORNING 90 Tablet 3 Levothyroxine Sodium 125 MCG Oral Tablet (Levoxyl) Take 1 Tablet by mouth in the morning. (at least30 min prior to breakfast or other meds). 90 Tablet 1 Omeprazole 40 MG Oral Capsule Delayed Release (PriLOSEC) Take one tablet by mouth daily. 10 Cap 0 Nitroglycerin 0.4 MG Sublingual Tablet Sublingual (Nitrostat) Place 1 Tablet under the tongue as needed for Pain, Chest. May repeat 3 times. If chest pain continues, call 911. (Patient not taking: Reported on 12/23/2022) 25 Tablet 5 predniSONE 50 MG Oral Tablet (Deltasone) Take 1 tablet (50mg) by mouth 13 hours, 7 hours and [address] scan. 3 Tablet 0 diphenhydrAMINE HCl 25 MG Oral Capsule (Benadryl Allergy) Take 1 capsule (50mg) by mouth [address] scan. 2 Capsule 0 Doxazosin Mesylate 8 MG Oral Tablet Take 1 Tablet by mouth at bedtime. 90 Tablet 2 No current facility-administered medications for this visit. Patient Active Problem List Diagnosis Calculus of ureter Gastroesophageal reflux disease without esophagitis Elevated prostate specific antigen (PSA) ASCVD (arteriosclerotic cardiovascular disease) Hypothyroidism Old myocardial infarct DVT prophylaxis Sun-damaged skin Frequent PVCs Inguinal hernia Dyslipidemia, goal LDL below 70 History of tobacco use Chronic kidney disease, stage 3 unspecified (HCC) Heart failure, systolic, due to CAD (HCC) Chronic obstructive pulmonary disease (HCC) Other emphysema (HCC) Other specified peripheral vascular diseases (HCC) HTN, goal below 130/80 Hypertensive heart disease with systolic heart failure and stage 3a chronic kidney disease (HCC) Colon cancer (HCC) Post-op pain Chronic kidney disease, stage 3a (HCC) Medication Compliance: Patient is able to obtain all of his medications? Yes Patient takes medications as prescribed? Yes Patient manages own medications: Yes Patient uses a pill box? No Dental Exam: No Dentures Eye Screening: Yes: Every year Are you having trouble with hearing? Yes Offered audiology evaluation - declined Do you use an assistive device to help your hearing? No Exercise Screening: does not exercise regularly Nutrition Assessment: Eats a balanced diet and Eats two meals a day Pain Screening: Are you having any pain? No Sleep Screening Tool 'STOP': Do you snore? No Do you feel fatigued during the day? No Do you wake up feeling like you haven't slept? No Have you been told you stop breathing at night? No Do you gasp for air or choke while sleeping? No Have you been told you have Sleep Apnea? No Do you have high blood pressure or are on medication(s) to control high blood pressure? Yes SCORE: If you check YES to two or more questions, make a referral for Obstructive Sleep Apnea Patient and Caregiver Support System: Patient lives with a spouse Means of Transportation: Drives. Not a concern. Patient lives in Two Story - How many stairs: 14 steps with hand railing Community Resources: Not Applicable Functional Status and ADL Skills: Has patient ever had an amputation? No Functional Assessment: 100- Normal, no complaints, no evidence of disease Ambulation: Patient ambulates without assistive device. Independent Dressing: Gets clothes and dresses without any assistance: Independent Able to move freely in chair or bed including turning over: Independent Repositioning (bed or chair): Not applicable Transfers: Independent Toileting: Goes to bathroom, uses toilet, arranges clothes and returns without any assistance: Independent Toileting: continent of bowel and incontinent of bladder Feeding: Self Bathing: Self; tub, grab bars, mat to step out onto Requires none assistance with ADLs. Instrumental ADL's: Shopping: Independent Housekeeping: Independent Handling Finances: Independent DME Vendor Name: Not Applicable Fall Risk Assessment: Can the patient demonstrate that he can stand from a sitting position? Yes Has the patient had a fall within the last 6 months? No Does the patient have a problem with his gait or balance? No Does the patient take 4 or more prescription medicines? Yes Does the patient use sedatives or narcotics? No Fall Risk Factors Present: Uses more than 4 medications Older than age 70 Lhi-Kb-smb-Go Test: Time began at 1000. Patient stood from sitting position and walked approximately 10 feet, returned and sat down. Total time for bfk-ps-cdr-go test was 13 seconds. Cmf-Gx-yyk-Go Test completed? Yes Gender Specific Preventative Plan: Health Maintenance Topic Date Due Alpha-1 Antitrypsin Never done Zoster Vaccines (1 of 2) Never done Albumin/Creatinine Ratio 01/11/2023 CKD PHOS USE SMARTSET 87770 01/11/2023 FOBT ANNUALLY,AGES 18-90 01/18/2023 COVID-19 Vaccine (3 - 2022- season) 2023 GFR 11/30/2023 *CXR OR CT FOR COPD EVER Never done TSH 01/13/2024 Influenza Vaccine (FLU shot) (1) 02/12/2024 CKD HGB USE SMARTSET 33363 05/31/2024 O2 ASSESSMENT COMPLETED IN PAST YEAR FOR COPD 07/20/2024 Depression Screening 12/26/2024 DTaP,Tdap,and Td Vaccines (2 - Td or Tdap) 07/08/2026 Pneumococcal Vaccine: 65+ Years Completed Hepatitis B Vaccine Aged Out MENINGOCOCCAL (MENACTRA/MENVEO) Aged Out HPV (Gardasil) Vaccine Aged Out Follow Up/ Referrals/Handouts: Depression screening - Completed Functional assessment - Completed Falls Risk screening - Completed, handout given Exercise screening - Encouraged to be as active as able Nutrition assessment -. Education Provided and Handouts Provided Pain screening - No concerns Incontinence screening - Incontinent bladder, no new concerns Routine general medical examination at a health care facility (Primary) Hypothyroidism, unspecified type Component Latest Ref Rng 01/12/2023 TSH 0.27 - 4.20 uIU/mL 1.25 -Med reconciliation completed and compliance discussed. - pt to continue present medications. Continue to monitor and follow with PCP Dyslipidemia, goal LDL below 70 Component Latest Ref Rng 01/11/2022 Non-HDL Cholesterol <=159 mg/dL 127 LDL Cholesterol <=129 mg/dL 70 -Med reconciliation completed and compliance discussed. - pt to continue present medications. Continue to monitor and follow with PCP Other emphysema (HCC) Continue to monitor and follow with PCP HTN, goal below 130/80 BP Readings from Last 3 Encounters: 12/27/23 116/62 07/20/23 98/68 07/13/23 121/58 -Med reconciliation completed and compliance discussed. - pt to continue present medications. Continue to monitor and follow with PCP Heart failure, systolic, due to CAD (HCC) -Med reconciliation completed and compliance discussed. - pt to continue present medications. Continue to monitor and follow with Cardiology Gastroesophageal reflux disease without esophagitis -Med reconciliation completed and compliance discussed. - pt to continue present medications. Continue to monitor and follow with PCP Chronic kidney disease, stage 3a (HCC) Continue to monitor and follow with PCP Patient has been verbally educated on the need or importance of Colon Cancer Screening, GFR, Immunizations: Shingles, Microalbumin Creatinine, and Phosphorus Colonoscopy scheduled 01/24/2024 Labs GFR, Phosphorus, TSH, Albumin/Creatinine(ordered), patient states he will complete prior to upcoming PCP appointment Patient declined Shingles vaccine Discussed importance of Covid Vaccine: pt has received the vaccine Yes, Patient has received Covid vaccines in the past, declines further Covid vaccine. Would patient like to schedule next AWV visit? Yes Brooke Rogel RN documented in this encounter Miscellaneous Notes * Pt Handout (not on AVS) - Brooke Rogel RN - 12/27/2023 10:40 AM EDT [id number] Fall Prevention Falls often take place due to slipping, tripping, or losing your balance. Millions of people fall every year and injure themselves. Among older adults in the [place] falls are the most common cause of traumatic brain injuries. Every 20 minutes, an older adult dies from a fall. Here are ways to reduceyour risk of falling again: Think about your fall. Was there anything that caused your fall that can be fixed, removed, or replaced? Make your home safe by keeping walkways clear of objects you may trip over, such as electrical cords. Use nonslip pads under rugs. Don't use area rugs or small throw rugs. Use nonslip mats in bathtubs and showers. Hang grab rails by the toilet and inside and outside the shower. Install handrails and lights on staircases. The handrails should be on both sides of the stairs. Use night lights. Don't walk in poorly lit areas. Don't stand on chairs or wobbly ladders. Use care when reaching overhead or looking up. This position can cause a loss of balance. Be sure your shoes fit well, are in good condition, and have nonslip bottoms. Wear shoes both inside and outside of your home. Don't go barefoot or wear slippers. Be cautious when going up and down stairs, curbs, and when walking on uneven sidewalks. If your balance is poor, consider using a cane or walker. Talk with your healthcare provider about having a balance assessment. If your fall was related to alcohol use, stop or limit alcohol intake. Ask your provider for help if you think you may overuse alcohol and can't stop. If your fall was related to use of sleeping medicines, talk with your provider about this. You may need to reduce your dosage at bedtime if you wake up during the night to go to the bathroom. To reduce the need for nighttime bathroom trips: o Don't drink fluids for several hours before going to bed o Empty your bladder before going to bed o Men can keep a urinal at the bedside Stay as active as you can. Balance, flexibility, strength, and endurance all come from exercise.They all play a role in preventing falls. Ask your provider which types of activity are right for you. Try to do some type of exercise every day. Get your eyes checked once a year or more often if your vision changes If you have pets, know where they are before you stand up or walk so you don't trip over them. Go over all your medicines with a pharmacist or other provider. This is to see if any of them could make you more likely to fall. Have this type of medicine review at least once every year. If your provider advises a new medicine, ask if the side effects will affect your balance. Don't move quickly from one position to another. For instance, don't stand up fast from sitting.This can cause dizziness and may lead to a fall. Sit down when putting on pants, socks, and shoes. This will make you less likely to lose your balance and fall. Always let your provider know if you have fallen since your last visit. Contact your provider right away if you're having balance problems or falling more often. Last Reviewed Date: 06/13/202119998977-6427 [employer]. All rights reserved. This information is not intended as a substitute for professional medical care. Always follow your healthcare professional's instructions. * Pt Handout (not on AVS) - Brooke Rogel RN - 12/27/2023 10:39 AM EDT Images from the original note were not included. [id number] Steps for Eating Healthier Changing the way you eat can improve your health. It can lower your cholesterol and blood pressure,and help you stay at a healthy weight. Your diet doesn?t have to be bland and boring to be healthy.Just watch your calories and follow these steps: Step 1. Eat fewer unhealthy fats Choose more fish and lean meats instead of fatty cuts of meat. Skip butter and lard, and use less margarine. Replace these with healthier fats, such as olive, canola, or avocado oils. Pass on foods that have palm, coconut, or partially hydrogenated oils. Eat fewer high-fat dairy foods like cheese, ice cream, and whole milk. Get a heart-healthy cookbook and try some new recipes. Step 2. Go light on salt Keep the saltshaker off the table. Limit high-salt ingredients, such as soy sauce, bouillon, and garlic salt. Instead of adding salt when cooking, season your food with herbs, spices, and other flavorings. Try lemon, garlic, onion, vinegar, or salt-free herb seasonings. Limit convenience foods, such as boxed or canned foods and restaurant food. Read food labels and choose lower-sodium options. Buy fresh, frozen, or canned vegetables that don't have added salt. Step 3. Limit sugar Pause before you add sugars to pancakes, cereal, coffee, or tea. This includes white and brown table sugar, syrup, honey, and molasses. Cut your usual amount by half. Swap out sugar-filled soda and other drinks. Buy sugar-free or low-calorie beverages. Remember, water is always the best choice. Try adding lemon juice to water for extra flavor. Read labels and choose foods with less added sugar. Keep in mind that dairy foods and foods withfruit will have some natural sugar. Cut the sugar in recipes by 1/3 to 1/2. Boost the flavor with extracts like almond, vanilla, or orange. Or add spices such as cinnamon or nutmeg. Step 4. Eat more fiber Eat fresh fruits and vegetables every day. Boost your diet with whole grains. Go for oats, whole-grain rice, and bran. Add beans and lentils to your meals. Drink more water to match your fiber increase to help prevent constipation. Step 5. Pay attention to serving sizes Remember that a serving size is a standard measurement. It will let you track the amount of fat,calories, and other nutrients in the food you eat. Read the Nutrition Facts label on packaged foods to learn their serving sizes. Use serving sizes to assess how much food you put on your plate. Pay attention to your portions.How many servings are you eating? Keep in mind that your needs may change if you?re more active or less active, or if you have other factors that change your calorie needs. Use your hand to help you measure serving sizes. For example: o 1 teaspoon: This is about the size of the first joint of your thumb. o 1 tablespoon: This is about the size of the first 2 joints of your thumb. o 1 ounce: This is about what you can fit in your cupped hand. o 2 to 3 ounces: This is about the size of the palm of your hand. o cup: This is also about what you can fit in your cupped hand. o 1 cup: This is about the size of your fist. Last Reviewed Date: 05/13/202219995112-1741 [employer]. All rights reserved. This information is not intended as a substitute for professional medical care. Always follow your healthcare professional's instructions. documented in this encounter Plan of Treatment Upcoming Encounters Date Type Department Care Team (Latest Contact Info) Description 01/11/2024 9:30 AM EDT Laboratory Laboratory, [place] [address] [place] [address] [place] [address] [facility] [address] 01/18/2024 3:40 PM EDT Office Visit [facility], [place] [address] [facility], [place] [phone] Delmer Cho MD [address] [facility] [place] [id number] 01/24/2024 11:45 AM EDT Hospital Encounter ENDO OSSC, Endoscopy Room [facility] [address] [facility] [phone] Meredith Silverio MD [address] [facility] [place] [id number] 01/24/2024 11:45 AM EDT - 01/24/2024 12:15 PM EDT Surgery ENDO OSSC, Endoscopy Room [facility] [address] [facility] [place] [phone] Meredith Silverio MD [address] [employer] [facility] [place] [id number] COLONOSCOPY FLEXIBLE PROXIMAL DIAGNOSTIC 01/30/2024 10:30 AM EDT Office Visit Hematology/Oncolog y [facility] [address] [facility] [place] [address] Kylah Flores MD [address] [facility] [place], [place] [address] 12/28/2024 10:00 AM EDT Nurse Only Ancillary Department, [place] [address] [facility] [address] [place], Nurse [facility] [address] [facility] [address] Scheduled Orders Name Type Priority Associated Diagnoses Orde r Schedule ALBUMIN / CREATININE RATIO, URINE Lab Routine Chronic kidney disease, stage 3a (HCC) Expected: 12/27/2023 (Approximate), Expires: 12/26/2024 Scheduled Procedures Name Priority Associated Diagnoses Date/Ti me COLONOSCOPY FLEXIBLE PROXIMAL DIAGNOSTIC Malignant neoplasm of sigmoid colon (HCC) 01/24/2024 11:45 AM EDT Health Maintenance Due Date Last Done Comments Alpha-1 Antitrypsin 1958 Zoster Vaccines (1 of 2) 1990 Albumin/Creatinine Ratio 01/11/2023 022, 01/05/2021, 09/04/2018, Additional history exists CKD PHOS USE SMARTSET 62614 01/11/2023 08/0 06/2021, 11/27/2020, 12/04/2019, Additional history [...] Additional history exists CKD HGB USE SMARTSET 92072 05/31/202405/31, 05/31/2023, 11/23/2022, Additional history exists Depression [...] this encounter Medical Devices Implanted Type Area Wage And Hour Investigator Device Identifier Shelf Expiration Date Model / Serial / Lot Lens Intraoc 21.5 - [id number] - [id number] Implanted:Qty: 1 on 02/12/2020 by Andrae Chan MD at OR [facility] Left: Eye BAUSCH [employer] LOMB 08/10/2024 [id number] / [id number] / Sofport Implanted:Qty: 1 on 02/26/2020 by Andrae Chan MD at OR [facility] Right: Eye 07/13/2024 [id number] / [id number] / [id number] documented as of this encounter Visit Diagnoses Diagnosis Routine general medical examination at a health care facility- Primary Hypothyroidism, unspecified type Dyslipidemia, goal LDL below 70 Other and unspecified hyperlipidemia Other emphysema (HCC) Other emphysema HTN, goal below 130/80 Unspecified essential hypertension Heart failure, systolic, due to CAD (HCC) Unspecified systolic heart failure Gastroesophageal reflux disease without esophagitis Esophageal reflux Chronic kidney disease, stage 3a (HCC) Malignant neoplasm of sigmoid colon (HCC) Malignant neoplasm of sigmoid colon documented in this encounter Advance Directives * Full Code (Latest Code Status on File) Date Activated Date Inactivated Comments 04/28/2022 7:58 PM 04/30/2022 5:20 PM Question Answer Comments Discussion of Advance Direct jay occurred with: Not Discussed due to patient's condition Care Teams Form Presser Relationship Specialty Start Date End Date Delmer Cho MD [address] [place] [address] PCP - General Family Medicine 10/20/17 documented as of this encounter
--- OUTSIDE RECORDS SUMMARY | 2024-01-08 21:27 | External Medical Summary | Summary of Care ---
Author Name Unknown Organization [facility] Address [address] [facility] [place] [address] Phone [phone] Care Team Providers Care Senior Financial Analyst Name Role Phone Delmer Cho MD Primary Care Provider [phone] Reason for Visit * Reason Onset Date Comments Order Request 01/04/2024 Encounter Details Date Type Department Care Team (Late st Contact Info) Description 01/04/2024 Telephone Gastroenterology, [facility] [address] [facility] [place] [address] Meredith Silverio MD [address] [place] [address] [place] [address] Order Request Allergies Active Allergy Reactions [...] 01/12/2023 Active predniSONE 50 MG Oral Tablet (Deltasone)Arttio ns:Malignant neoplasm of sigmoid colon (HCC) Take [...] encounter Miscellaneous Notes * Telephone Encounter - Tami Carter OSA - 01/04/2024 12:13 PM EDT Colonoscopy order has . Patient scheduled 01/24/[address] new order. documented in this encounter Plan of Treatment Upcoming Encounters Date Type Department Care Team (Latest Contact Info) Description 01/11/2024 9:30 AM EDT Laboratory Laboratory, [place] [address] [facility] [address] [place], Laboratory [address] [place] [facility] [place] [address] 01/18/2024 3:40 PM EDT Office Visit [facility], [place] [address] [facility] [place] [address] Delmer Cho MD [address] [place] [address] 01/24/2024 11:45 AM EDT Hospital Encounter ENDO OSS, Endoscopy Room [facility] [address] [place] [phone] Meredith Silverio MD [address] [place] [address] 01/24/2024 11:45 AM EDT - 01/24/2024 12:15 PM EDT Surgery ENDO OSS, Endoscopy Room [facility] [address] [place] [place] [phone] Meredith Silverio MD [address] [place] [id number] COLONOSCOPY FLEXIBLE PROXIMAL DIAGNOSTIC 01/30/2024 10:30 AM EDT Office Visit Hematology/Oncolog y [facility] [place] [address] [facility] [place], [place] [phone] Kylah Flores MD [address] [facility] [place], [place] [address] 12/28/2024 10:00 AM EDT Nurse Only Ancillary Department, [place] [address] [facility] [place] [address] [place], Nurse Annual Wellness [address] [place] [facility] [place] [address] Scheduled Procedures Name Priority Associated Diagnoses Date/Ti me COLONOSCOPY FLEXIBLE PROXIMAL DIAGNOSTIC Malignant neoplasm of sigmoid colon (HCC) 01/24/2024 11:45 AM EDT Health Maintenance Due Date Last Done Comments Alpha-1 Antitrypsin 1958 Zoster Vaccines (1 of 2) 1990 Albumin/Creatinine Ratio 01/11/2023 022, 01/05/2021, 09/04/2018, Additional history exists CKD PHOS USE SMARTSET 51813 01/11/2023 08/0 06/2021, 11/27/2020, 12/04/2019, Additional history exists FOBT ANNUALLY,AGES 18-90 01/18/2023 022, 01/18/2022, 08/26/2017 (Refused), Additional history exists COVID-19 Vaccine ( season) 2023 10/18/2020, 09/26/2020 GFR 11/30/2023 05/31/2023, 090 01/2023, 11/23/2022, Additional history exists *CXR OR CT FOR COPD EVER 12/25/2023 TSH 01/13/2024 01/12/2023, 11/11, 07/21/2022, Additional history exists Influenza Vaccine (FLU shot) (#1) 2024 04/01/2023, 07/14/2022, 03/27/2020, Additional history exists CKD HGB USE SMARTSET 02666 05/31/202405/31, 05/31/2023, 11/23/2022, Additional history exists Depression [...] this encounter Medical Devices Implanted Type Area Blanket Inspector Device Identifier Shelf Expiration Date Model / Serial / Lot Lens Intraoc 21.5 - [id number] - [id number] Implanted:Qty: 1 on 02/12/2020 by Andrae Chan MD at OR [facility] Left: Eye [employer]USCH [employer] LOMB 08/10/2024 [id number] / [id number] / Sofport Implanted:Qty: 1 on 02/26/2020 by Andrae Chan MD at OR [facility] Right: Eye 07/13/2024 [id number] / [id number] / [id number] documented as of this encounter Advance Directives * Full Code (Latest Code Status on File) Date Activated Date Inactivated Comments 04/28/2022 7:58 PM 04/30/2022 5:20 PM Question Answer Comments Discussion of Advance Direct jay occurred with: Not Discussed due to patient's condition Care Teams Senior Financial Analyst Relationship Specialty Start Date End Date Delmer Cho MD [address] [place] [facility] [place] [address] PCP - General Family Medicine 10/20/17 documented as of this encounter
--- OUTSIDE RECORDS SUMMARY | 2024-01-08 21:28 | External Medical Summary | Summary of Care ---
Author Name Unknown Organization [facility] Address [address] [facility] [place] [address] Phone [phone] Care Team Providers Care Customer Quality Specialist Name Role Phone Delmer Cho MD Primary Care Provider [phone] Reason for Visit * Reason Comments Medication Refill Encounter Details Date Type Department Care Team (Late st Contact Info) Description 08/30/2023 Refill Cardiology, [facility] [address] [place] [address] Neena Banegas, DO [address] [place] [address] Old myocardial infarct; ASCVD (arteriosclerotic cardiovascular disease); Kidney disease, chronic, stage III (GFR 30-59 ml/min) ([facility]); Dyslipidemia, goal LDL below 100 Allergies Active Allergy Reactions Criticality Noted Date Comments Iodine 10/18/2003 Hives Meperidine And Related 10/18/2003 Hives Sulfa Antibiotics 02/04/1999 hives documented as of this encounter (statuses as of 08/30/2023) Medications Medication Sig Dispensed Refills Start Date End Date Status ASPIRIN 81 MG PO TBECIndications:jatinder es in the evening Take by mouth. Indications: takes in the evening 90 Tab 3 4 Active Diclofenac Sodium 1 % External Gel (Voltaren) Apply topically to affected area 4 times a day as needed for Pain. Apply to L knee 100 g 11 1 Active Additional Information Patient not taking.Reported on 01/12/2023 Omeprazole 40 MG Oral Capsule Delayed Release (PriLOSEC)Indicatio ns:Gastroesophageal reflux disease with esophagitis Take one tablet by mouth daily. 10 Cap 0 1 Active Triamcinolone Acetonide 0.1 % External Cream (Aristocort) Apply topically to affected area 2 times a day . To affected area. 80 g 5 2 Active Acetaminophen 500 MG Oral Tablet (Tylenol) 2 caps every 8 hours for 3 days, then 1 cap every 4 hours as needed for pain. Do not exceed 3000mg acetaminophen (Tylenol) every 24 hours. 1 Tablet 0 2 Active Nitroglycerin 0.4 MG Sublingual Tablet Sublingual (Nitrostat)Indicati ons:ASCVD (arteriosclerotic cardiovascular disease),Old myocardial infarct Place 1 Tablet under the tongue as needed for Pain, Chest. May repeat 3 times. If chest pain continues, call 911. 25 Tablet 5 3 Active Additional Information Patient not taking.Reported on 12/23/2022 Levothyroxine Sodium 125 MCG Oral Tablet (Levoxyl)Indication s:Acquired hypothyroidism Take 1 Tablet by mouth in the morning. (at least 30 min prior to breakfast or other meds). 90 Tablet 3 3 Active Finasteride 5 MG Oral Tablet (Proscar)Indication s:Acute urinary retention Take 1 Tablet by mouth in the morning. 90 Tablet 3 3 Active Omeprazole 20 MG Oral Capsule Delayed Release (PriLOSEC)Indicatio ns:Gastroesophageal reflux disease without esophagitis Take 1 Capsule by mouth in the morning. 1 hour before the first meal of the day. 90 Capsule 3 3 Active predniSONE 50 MG Oral Tablet (Deltasone)Indicati ons:Malignant neoplasm of sigmoid colon (HCC) Take 1 tablet (50mg) by mouth 13 hours, 7 hours and [address] scan. 3 Tablet 0 3 Active diphenhydrAMINE HCl 25 MG Oral Capsule (Benadryl Allergy)Indications :Malignant neoplasm of sigmoid colon (HCC) Take 1 capsule (50mg) by mouth [address] scan. 2 Capsule 0 3 Active Metoprolol Succinate ER 25 MG [...] Tuesday only. 50 Tablet 3 3 Active Doxazosin Mesylate 8 MG Oral TabletIndications:H TN, goal below 130/80 Take 1 Tablet by mouth at bedtime. 90 Tablet 1 3 Active Famotidine 20 MG Oral Tablet [...] 90 Tablet 3 4 08/30/19 25 Active Atorvastatin Calcium 80 MG Oral Tablet (Lipitor)Indication s:Old myocardial infarct,ASCVD (arteriosclerotic cardiovascular disease),Kidney disease, chronic, stage III (GFR 30-59 ml/min) (HCC),Dyslipidemia, goal LDL below 100 TAKE ONE TABLET BY MOUTH EVERY MORNING 100 Tablet 3 3 08/30/19 24 Discontinu ed(Refill) documented as of this encounter (statuses as of 08/30/2023) Active Problems Problem Noted Date Diagnosed Date [...] as of this encounter (statuses as of 08/30/2023) Resolved Problems Problem Noted Date Diagnosed Date [...] as of this encounter (statuses as of 08/30/2023) Immunizations Name Administration Dates Next Due COVID-19 [...] encounter Miscellaneous Notes * Telephone Encounter - Neena Banegas DO - 08/30/2023 5:44 PM EDTSigned Prescriptions: Disp Refills Atorvastatin Calcium 80 MG Oral Tablet (Li*90 Tab*3 Sig: TAKE ONE TABLET BY MOUTH EVERY MORNING Authorizing Provider: NEENA BANEGAS * Telephone Encounter - Lissette Valle COT - 08/30/2023 1:04 PM EDTPending Prescriptions: Disp Refills Atorvastatin Calcium 80 MG Oral Tablet (Li*90 Tab*3 Sig: TAKE ONE TABLET BY MOUTH EVERY MORNING * Telephone Encounter - Lissette Valle COT - 08/30/2023 1:03 PM EDT Did you pend patient's preferred pharmacy and medication before forwarding?yes Pharmacy: [email or web address] Pending Prescriptions: Disp Refills Atorvastatin Calcium 80 MG Oral Tablet (L*90 Tab*3 Sig: TAKE ONE TABLET BY MOUTH EVERY MORNING Last Visit: 12/23/2022 (in office), Visit date not found (telemedicine) Next Visit: Visit date not found If no future appointments scheduled, and last appointment is greater than a year ago, please schedule patient for a follow-up appointment Last date the medication was ordered: 06-22-2022 Is this request for a controlled substance?No Urine Drug Screen:No results found for this or any previous visit. Patient Phone Numbers Labs: Lab Results Component Value Date/Time CREAT 1.3 (H) 05/31/2023 08:05 AM CREAT 1.3 (H) 12/04/2019 04:38 PM POTASSIUM 4.4 05/31/2023 08:05 AM POTASSIUM 5.1 12/04/2019 04:38 PM POTASSIUM 4.7 04/27/1996 03:50 PM TSH 1.25 01/12/2023 03:19 PM TSH 3.59 12/04/2019 04:38 PM TSH 1.57 04/27/1996 03:50 PM LDLCALC 70 01/11/2022 03:09 PM LDLCALC UNINTERPRETABLE RESULT 09/04/2018 07:36 AM LDLDIRECT 89 09/04/2018 07:36 AM LDLDIRECT 92 04/07/2012 08:04 AM ALT 21 05/31/2023 08:05 AM ALT 27 12/04/2019 04:38 PM HGBA1C 6.3 (H) 09/04/2018 07:36 AM documented in this encounter Plan of Treatment Upcoming Encounters Date Type Department Care Team (Latest Contact Info) Description 01/18/2024 3:40 PM EDT Office Visit [facility] [address] [place] [facility] [phone] Delmer Cho MD [address] [place] [address] 01/24/2024 11:45 AM EDT Hospital Encounter ENDO OSSC, Endoscopy Room [facility] [address] [facility] [place] [phone] Meredith Silverio MD [address] [place] [address] 01/24/2024 11:45 AM EDT - 01/24/2024 12:15 PM EDT Surgery ENDO OSSC, Endoscopy Room [facility] [address] [place] [phone] Meredith Silverio MD [address] [place] [id number] COLONOSCOPY FLEXIBLE PROXIMAL DIAGNOSTIC Scheduled Procedures Name Priority Associated Diagnoses Date/Ti me COLONOSCOPY FLEXIBLE PROXIMAL DIAGNOSTIC Malignant neoplasm of sigmoid colon (HCC) 01/24/2024 11:45 AM EDT Health Maintenance Due Date Last Done Comments Alpha-1 Antitrypsin 1958 Zoster Vaccines (1 of 2) 1990 Depression Screening 12/03/2020 12/04/2019, 10/05/19 15 Albumin/Creatinine Ratio 01/11/2023 022, 01/05/2021, 09/04/2018, Additional history exists CKD PHOS USE SMARTSET 61254 01/11/2023 08/0 06/2021, 11/27/2020, 12/04/2019, Additional history exists FOBT ANNUALLY,AGES 18-90 01/18/2023 022, 01/18/2022, 08/26/2017 (Refused), Additional history exists COVID-19 Vaccine ( season) 2023 10/18/2020, 09/26/2020 GFR 11/30/2023 05/31/2023, 09/0 01/2023, 11/23/2022, Additional history exists TSH 01/13/2024 01/12/2023, 11/11, 07/21/2022, Additional history exists CKD HGB USE SMARTSET 97317 05/31/202405/31, 05/31/2023, 11/23/2022, Additional history exists O2 ASSESSMENT COMPLETED IN PAST YEAR FOR COPD 07/20/2024 07/20/2023 DTaP,Tdap,and Td Vaccines (2 - Td or Tdap) 07/08/2026 07/08/2016, 07/08/2006, 06/13/1988 Pneumococcal Vaccine: 65+ Years Completed 02/28/2018, 08/25/2016 Influenza Vaccine (FLU shot) Completed , 07/14/2022, 03/27/2020, Additional history exists GARDASIL-HPV IMMUNIZATION SERIES Aged Out No longer eligible based on patient's age to complete this topic Hepatitis B Aged Out No longer eligi ble based on patient's age to complete this topic MENINGOCOCCAL (MENACTRA/MENVEO) Aged Out No longer eligible based on patient's age to complete this topic documented as of this encounter Medical Devices Implanted Type Area Agriculture Manager Device Identifier Shelf Expiration Date Model / Serial / Lot Lens Intraoc 21.5 - [id number] - [id number] Implanted:Qty: 1 on 02/12/2020 by Andrae Chan MD at OR [facility] Left: Eye BA[employer]CH [employer] LOMB 08/10/2024 [id number] / [id number] / Sofport Implanted:Qty: 1 on 02/26/2020 by Andrae Chan MD at OR [facility] Right: Eye 07/13/2024 [id number] / [id number] / [id number] documented as of this encounter Visit Diagnoses Diagnosis Old myocardial infarct Old myocardial infarction ASCVD (arteriosclerotic cardiovascular disease) Unspecified cardiovascular disease Kidney disease, chronic, stage III (GFR 30-59 ml/min) (HCC) Chronic kidney disease, Stage III (moderate) Dyslipidemia, goal LDL below 100 Other and unspecified hyperlipidemia Malignant neoplasm of sigmoid colon (HCC) Malignant neoplasm of sigmoid colon documented in this encounter Advance Directives Latest Code Status on File Code Status Date Activated Date Inactivated Comments Full Code 04/28/2022 7:58 PM 04/30/2022 5:20 PM Question Answer Comments Discussion of Advance Directives occurred with: Not Discussed due to patient's condition Care Teams Customer Quality Specialist Relationship Specialty Start Date End Date Delmer Cho MD [address] [place] [address] PCP - General Family Medicine 10/20/17 documented as of this encounter
--- OUTSIDE RECORDS SUMMARY | 2024-01-08 21:28 | External Medical Summary ---
Author Name Unknown Address Unknown Organization K01:LABORATORY [facility] - [address] [facility] [address] Laboratory Report Ordering Provider Test Date Status LULA PEREZ 07/13/2023 10:11:02 Final Observation Date Value Abnormality Reference (Units ) Status CEA 07/13/2023 10:11:02 1.0 <=5.2 (ng/ mL) Final Performing Location [facility] - [address] [facility] [address]
--- OUTSIDE RECORDS SUMMARY | 2024-01-08 21:28 | External Medical Summary | Summary of Care ---
Author Name Unknown Organization [facility] Address [address] [place] [address] Phone [phone] Care Team Providers Care Shipping Specialist Name Role Phone Delmer Cho MD Primary Care Provider Reason for Visit * Reason Onset Date Comments Health Maintenance 12/02/2023 Encounter Details Date Type Department Care Team (Late st Contact Info) Description 12/02/[address] [facility] [address] [place] [address] Delmer Cho MD [address] [place] [address] Health Maintenance Allergies Active Allergy Reactions Criticality Noted Date Comments Iodine 10/18/2003 Hives Meperidine And Related 10/18/2003 Hives Sulfa Antibiotics 02/04/1999 hives documented as of this encounter (statuses as of 12/02/2023) Medications Medication Sig Dispensed Refills Start Date End Date Status ASPIRIN 81 MG PO TBECIndications:take s in the evening Take by mouth. Indications: takes in the evening 90 Tab 3 10/25/2013 Active Diclofenac Sodium 1 % External Gel (Voltaren) Apply topically to affected area 4 times a day as needed for Pain. Apply to L knee 100 g 11 01/23/2021 Active Additional Information Patient not taking.Reported on [...] disease, chronic, stage III (GFR 30-59 ml/min) ([facility]),Dyslipidemia, goal LDL below 100 TAKE ONE TABLET [...] as of this encounter (statuses as of 12/02/2023) Active Problems Problem Noted Date Diagnosed Date [...] as of this encounter (statuses as of 12/02/2023) Resolved Problems Problem Noted Date Diagnosed Date [...] as of this encounter (statuses as of 12/02/2023) Immunizations Name Administration Dates Next Due COVID-19 mRNA, LNP-s, No Pre serve, 2-Dose Series (Zank) 10/18/2020,09/26/2020 Pneumococcal Conjugate Vacc, 13 Valent (Prevnar) [...] encounter Miscellaneous Notes * Telephone Encounter - Carina Dubois LPN - 12/02/2023 10:38 AM EDT Care Gaps Comprehensive Care Outreach Last Office/Telemedicine Visit: 07/20/2023 (in office), Visit date not found (telemedicine) Next Office Visit: 01/18/2024 Hemoglobin AIC Results: Lab Results Component Value Date/Time HEMOGLOBIN A1C - [facility] 6.3 (H) 09/04/2018 07:36 AM HEMOGLOBIN A1C - [facility] 6.5 (H) 02/28/2018 11:24 AM BP Readings from Last 1 Encounters: 07/20/23 98/68 Reviewed Health Maintenance below: Health Maintenance Topic Date Due Alpha-1 Antitrypsin Never done Zoster Vaccines (1 of 2) Never done Depression Screening 12/03/2020 Albumin/Creatinine Ratio 01/11/2023 CKD PHOS USE SMARTSET 73564 01/11/2023 FOBT ANNUALLY,AGES 18-90 01/18/2023 COVID-19 Vaccine ( season) 2023 GFR 11/30/2023 TSH 01/13/2024 Awv scheduled Labs add phos and tsh ordered Fobt colonoscopy scheduled Care Gap Outreach Action Taken: Spoke to patient documented in this encounter Plan of Treatment Upcoming Encounters Date Type Department Care Team (Latest Contact Info) Description 12/27/2023 10:00 AM EDT Nurse Only Ancillary Department, [place] [address] [facility] [place] [id number] [place], Nurse Annual Wellness [address] [facility] [place] [address] 01/11/2024 9:30 AM EDT Laboratory Laboratory, [place] [address] [place] [facility] [place] [address] [facility] Laboratory [address] [facility] [place] [address] 01/18/2024 3:40 PM EDT Office Visit [facility], [place] [address] [place] [facility] [place] [place] [address] Delmer Cho MD [address] [facility] [place] [id number] 01/24/2024 11:45 AM EDT Hospital Encounter ENDO [facility], Endoscopy Room [facility] [address] [facility] [place] [address] Meredith Silverio MD [address] [place] [address] 01/24/2024 11:45 AM EDT - 01/24/2024 12:15 PM EDT Surgery ENDO [facility], Endoscopy Room [facility] [address] [place] [phone] Meredith Silverio MD [address] [place] [id number] COLONOSCOPY FLEXIBLE PROXIMAL DIAGNOSTIC 01/30/2024 10:30 AM EDT Office Visit Hematology/Oncolog y [facility] [place] [address] [place] [address] Kylah Flores MD [address] [place] [address] Scheduled Orders Name Type Priority Associated Diagnoses Orde r Schedule PHOSPHORUS Lab Routine Chronic kidney disease, unspecified CKD stage Expected: 01/01/2024, Expires: 12/01/2024 TSH WITH FREE T4 IF INDICATED Lab Routine Screening for thyroid disorder Expected: 01/01/2024, Expires: 12/01/2024 Scheduled Procedures Name Priority Associated Diagnoses Date/Ti me COLONOSCOPY FLEXIBLE PROXIMAL DIAGNOSTIC Malignant neoplasm of sigmoid colon (HCC) 01/24/2024 11:45 AM EDT Health Maintenance Due Date Last Done Comments Alpha-1 Antitrypsin 1958 Zoster Vaccines (1 of 2) 1990 Depression Screening 12/03/2020 12/04/2019, 10/05/19 15 Albumin/Creatinine Ratio 01/11/2023 022, 01/05/2021, 09/04/2018, Additional history exists CKD PHOS USE SMARTSET 97540 01/11/2023 08/0 06/2021, 11/27/2020, 12/04/2019, Additional history exists FOBT ANNUALLY,AGES 18-90 01/18/2023 022, 01/18/2022, 08/26/2017 (Refused), Additional history exists COVID-19 Vaccine ( season) 2023 10/18/2020, 09/26/2020 GFR 11/30/2023 05/31/2023, 09/0 01/2023, 11/23/2022, Additional history exists TSH 01/13/2024 01/12/2023, 11/11, 07/21/2022, Additional history exists CKD HGB USE SMARTSET 33237 05/31/202405/31, 05/31/2023, 11/23/2022, Additional history exists O2 [...] this encounter Medical Devices Implanted Type Area Rehab Nurse Device Identifier Shelf Expiration Date Model / Serial / Lot Lens Intraoc 21.5 - [id number] - [id number] Implanted:Qty: 1 on 02/12/2020 by Andrae Chan MD at OR [facility] Left: Eye BAUSCH [employer] LOMB 08/10/2024 [id number] / [id number] / Sofport Implanted:Qty: 1 on 02/26/2020 by Andrae Chan MD at OR [facility] Right: Eye 07/13/2024 [id number] / [id number] / [id number] documented as of this encounter Visit Diagnoses Diagnosis Chronic kidney disease, unspecified CKD stage- Primary Screening for thyroid disorder Malignant neoplasm of sigmoid colon (HCC) Malignant neoplasm of sigmoid colon documented in this encounter Advance Directives * Full Code (Latest Code Status on File) Date Activated Date Inactivated Comments 04/28/2022 7:58 PM 04/30/2022 5:20 PM Question Answer Comments Discussion of Advance Direct jay occurred with: Not Discussed due to patient's condition Care Teams Shipping Specialist Relationship Specialty Start Date End Date Delmer Cho MD [address] [place] [address] PCP - General Family Medicine 10/20/17 documented as of this encounter
--- OUTSIDE RECORDS SUMMARY | 2024-01-08 21:28 | External Medical Summary | Summary of Care ---
Author Name Unknown Organization [facility] Address [address] [place] [address] Phone [phone] Care Team Providers Care Molding Engineer Name Role Phone Delmer Cho MD Primary Care Provider [phone] Reason for Visit * Reason Comments Follow Up Robotic low anterior resection for sigmoid cancer on 04/28/22 . Encounter Details Date Type Department Care Team (Late st Contact Info) Description 07/13/2023 10:15 AM EST Office Visit General Surgery, [facility] [address] [place] [address] Flavia Garcia MD [address] [place] [address] Malignant neoplasm of sigmoid colon (HCC)* Allergies Active Allergy Reactions Criticality Noted Date Comments Iodine 10/18/2003 Hives Meperidine And Related 10/18/2003 Hives Sulfa Antibiotics 02/04/1999 hives documented as of this encounter (statuses as of 07/13/2023) Medications Medication Sig Dispensed Refills Start Date [...] tablet by mouth daily. 10 Cap 0 02/02/2021 Active Triamcinolone Acetonide 0.1 % External Cream (Aristocort) Apply topically to affected area 2 times a day . To affected area. 80 g 5 08/07/2021 Active Acetaminophen 500 MG Oral Tablet (Tylenol) 2 caps every 8 hours for 3 days, then 1 cap every 4 hours as needed for pain. Do not exceed 3000mg acetaminophen (Tylenol) every 24 hours. 1 Tablet 0 04/30/2022 Active Nitroglycerin 0.4 MG Sublingual Tablet Sublingual (Nitrostat)Indicatio ns:ASCVD (arteriosclerotic cardiovascular disease),Old myocardial infarct Place 1 Tablet under the tongue as needed for Pain, Chest. May repeat 3 times. If chest pain continues, call 911. 25 Tablet 5 10/05/2022 Active Additional Information Patient not taking.Reported on 12/23/2022 Levothyroxine Sodium 125 MCG Oral Tablet (Levoxyl)Indications :Acquired hypothyroidism Take 1 Tablet by mouth in the morning. (at least 30 min prior to breakfast or other meds). 90 Tablet 3 11/30/2022 Active Atorvastatin Calcium 80 MG Oral Tablet (Lipitor)Indications :Old myocardial infarct,ASCVD (arteriosclerotic cardiovascular disease),Kidney disease, chronic, stage III (GFR 30-59 ml/min) (HCC),Dyslipidemia, goal LDL below 100 TAKE ONE TABLET BY MOUTH EVERY MORNING 100 Tablet 3 06/22/2022 Active Finasteride 5 MG Oral Tablet (Proscar)Indications :Acute [...] prior to CT scan. 3 Tablet 0 02/16/2023 Active diphenhydrAMINE HCl 25 MG Oral Capsule (Benadryl Allergy)Indications: Malignant neoplasm of sigmoid colon (HCC) Take 1 capsule (50mg) by mouth [address] scan. 2 Capsule 0 02/16/2023 Active Metoprolol Succinate ER 25 MG [...] Tuesday only. 50 Tablet 3 04/04/2023 Active Doxazosin Mesylate 8 MG Oral TabletIndications:HT N, goal below 130/80 Take 1 Tablet by mouth at bedtime. 90 Tablet 1 05/10/2023 Active documented as of this encounter (statuses as of 07/13/2023) Active Problems Problem Noted Date Diagnosed Date Colon cancer 04/30/2022 Post-op pain 04/30/2022 Hypertensive [...] as of this encounter (statuses as of 07/13/2023) Resolved Problems Problem Noted Date Diagnosed Date [...] as of this encounter (statuses as of 07/13/2023) Immunizations Name Administration Dates Next Due COVID-19 [...] Date Smoking Tobacco: Former Cigarettes 0.5 55 Q uit: 08/14/2012 Pipe Cigars Passive Smoke Exposure: Never [...] Sign Reading Time Taken Comments Blood Pressure 121/58 07/13/2023 9:50 AM EST Pulse 68 07/13/2023 9:50 AM EST Temperature - - Respiratory Rate - - Oxygen Saturation - - Inhaled Oxygen Concentration - - Weight 81.2 kg (179 lb) 07/13/2023 9:50 AM EST Height - - Body Mass Index 28.89 02/22/2023 9:54 AM EDT documented in this encounter Functional [...] No 04/28/2022 documented as of this encounter Progress Notes * Flavia Garcia MD - 07/13/2023 9:49 AM EST Follow-up Clinic Visit B[facility] Pope [id number] 07/13/2023 SUBJECTIVE: Bora Pope returns for a follow-up visit. He is doing well. He is tolerating a diet and having normal bowel function. He denies any fever, chills, CP or shortness of breath. Denies any melena or hematochezia. 03/23/23: Bora Pope returns for a follow-up visit. He has been doing well. He is tolerating a diet and having normal bowel function. He denies any fever, chills, CP or shortness of breath. Denies any melena or hematochezia. CT scan done last month unremarkable. 11/29/22: Bora Pope returns for a follow-up visit. He has been doing well. He is tolerating adiet and having normal bowel function. He denies any abdominal pain, fever, chills, CP or shortnessof breath. Denies any melena or hematochezia. He been increasing activity. 09/06/22: Bora Pope returns for a follow-up visit. He has been doing well. He is tolerating adiet and having normal bowel function. He denies any abdominal pain, fever, chills, CP or shortnessof breath. Denies any melena or hematochezia. 05/17/22: Bora Pope is a 82 year old male who presents for a 3 week follow-up visit s/p robotic low anterior resection for sigmoid cancer on 04/28/22 . Pt states that he has been doing well. Heis tolerating a diet and having normal bowel function. Denies any fever, chills, CP or shortness of breath. Pathology: Final Diagnosis A. Colon, Sigmoid, Anastomotic Rings, excision: Benign colon tissue with focal hyperplastic change, consistent with hyperplastic polyp No evidence of carcinoma B. Sigmoid Colon and Proximal Rectum, low anterior resection: Invasive adenocarcinoma, well to moderately differentiated The tumor invades through muscularis propria into pericolonic soft tissue Surgical resection margins are negative for carcinoma Twenty-eight lymph nodes, negative for carcinoma (0/28) PATHOLOGIC STAGE CLASSIFICATION (pTNM, AJCC 8th Edition) pT Category pT3 pN Category pN0 OBJECTIVE: There were no vitals taken for this visit. Constitutional: no acute distress CV: normal rate and rhythm, no murmur, gallops or rub Chest: normal respiratory effort Abdomen: soft, no tenderness, nondistended, no rebound or guarding, (+) incisions healing well Lab: Latest Reference Range & Units 01/21/22 14:03 07/21/22 08:28 11/23/22 09:25 03/23/23 10:41 CEA <=5.2 ng/mL 1.3 1.4 1.2 1.1 ASSESSMENT: Bora Pope is a 82 year old doing well s/p robotic LAR for T3N0 sigmoid cancer on04/28/22 doing well PLAN: -Diet as tolerated -RTC in 3 months with CEA, will repeat CEA now -Repeat colonoscopy 04/2023, scheduled for 09/08/23 Colon Surveillance: Stage II: History and physical every 3-6 months for 2 years, then every 6 months for a total of 5 years CEA every 3-6 months for 2 years, then every 6 months for a total of [address] chest/abdomen/pelvis every 6-12 months for a total of 5 years Colonoscopy in 1 year after surgery except if no preoperative colonoscopy due to obstructing lesion, colonoscopy in 3-6 months If advanced adenoma, repeat in 1 year If no advanced adenoma, repeat in 3 years, then every 5 years Flavia Garcia MD 9:49 AM documented in this encounter Nursing Notes * Alexandra Schrader MED ASSIST - 07/13/2023 9:51 AM EST Chief Complaint Patient presents with Follow Up Robotic low anterior resection for sigmoid cancer on 04/28/22 . Verified patient. No pain. Patient is here with his today. documented in this encounter Plan of Treatment Upcoming Encounters Date Type Department Care Team (Latest Contact Info) Description 07/20/2023 3:40 PM EST [facility] [address] [facility] [address] Delmer Cho MD [address] [facility] [place] [id number] 09/08/2023 10:15 AM EDT Hospital Encounter ENDO [facility], Endoscopy Room [facility] [address] [place] [address] Lucero Hassan, 09/08/2023 10:15 AM EDT - 09/08/2023 10:45 AM EDT Surgery ENDO [facility], Endoscopy Room [facility] [address] [place] [address] Lucero Hassan, DO COLONOSCOPY FLEXIBLE PROXIMAL DIAGNOSTIC 10/05/2023 11:00 AM EDT Office Visit General Surgery, [facility] [address] [facility] [place] [address] Flavia Garcia MD [address] [place] [address] 10/11/2023 1:00 PM EDT Office Visit Hematology/Oncology [facility] [address] [place] [address] Kylah Flores MD [address] [place] [address] Scheduled Orders Name Type Priority Associated Diagnoses Orde r Schedule CEA Lab Routine Malignant neoplasm of sigmoid colon (HCC) Expected: 10/11/2023, Expires: 07/13/2024 Scheduled Procedures Name Priority Associated Diagnoses Date/Ti me COLONOSCOPY FLEXIBLE PROXIMAL DIAGNOSTIC Malignant neoplasm of sigmoid colon (HCC) 09/08/2023 10:15 AM EDT Health Maintenance Due Date Last Done Comments Alpha-1 Antitrypsin 1958 Zoster Vaccines (1 of 2) 1990 Depression Screening 12/03/2020 12/04/2019, 10/05/19 15 Albumin/Creatinine Ratio 01/11/2023 022, 01/05/2021, 09/04/2018, Additional history exists CKD PHOS USE SMARTSET 63663 01/11/2023 08/0 06/2021, 11/27/2020, 12/04/2019, Additional history exists FOBT ANNUALLY,AGES 18-90 01/18/2023 022, 01/18/2022, 08/26/2017 (Refused), Additional history exists COVID-19 Vaccine (3 - 2022-24 season) 2023 10/18/2020, 09/26/2020 GFR 11/30/2023 05/31/2023, 01/2023, 11/23/2022, Additional history exists TSH 01/13/2024 01/12/2023, 11/11, 07/21/2022, Additional history exists CKD HGB USE SMARTSET 86033 05/31/202405/31, 05/31/2023, 11/23/2022, Additional history exists O2 ASSESSMENT COMPLETED IN PAST YEAR FOR COPD 06/07/2024 06/07/2023 DTaP,Tdap,and Td Vaccines (2 - Td or [...] this encounter Medical Devices Implanted Type Area Fire Extinguisher Charger Device Identifier Shelf Expiration Date Model / Serial / Lot Lens Intraoc 21.5 - [id number] - [id number] Implanted:Qty: 1 on 02/12/2020 by Andrae Chan MD at OR [facility] Left: Eye BAUSCH [employer] LOMB 08/10/2024 [id number] / [id number] / Sofport Implanted:Qty: 1 on 02/26/2020 by Andrae Chan MD at OR [facility] Right: Eye 07/13/2024 [id number] / [id number] / [id number] documented as of this encounter Visit Diagnoses Diagnosis Malignant neoplasm of sigmoid colon (HCC)- Primary Malignant neoplasm of sigmoid colon Malignant neoplasm of sigmoid colon (HCC) Malignant neoplasm of sigmoid colon documented in this encounter Advance Directives Latest Code Status on File Code Status Date Activated Date Inactivated Comments Full Code 04/28/2022 7:58 PM 04/30/2022 5:20 PM Question Answer Comments Discussion of Advance Directives occurred with: Not Discussed due to patient's condition Care Teams Molding Engineer Relationship Specialty Start Date End Date Delmer Cho MD [address] [place] [facility] [place] [address] PCP - General Family Medicine 10/20/17 documented as of this encounter
--- OUTSIDE RECORDS SUMMARY | 2024-01-08 21:28 | External Medical Summary | Summary of Care ---
Author Name Unknown Organization [facility] Address [address] [place] [address] Phone [phone] Care Team Providers Care Machine Shorthand Teacher Name Role Phone Ainsley Cho MD Primary Care Provider Reason for Visit * Reason Comments Medication Refill Encounter Details Date Type Department Care Team (Late st Contact Info) Description 10/31/2023 Refill [facility] [address] [place] [address] Ainsley Cho MD [address] [place] [address] HTN, goal below 130/80 Allergies Active Allergy Reactions Criticality Noted Date Comments Iodine 10/18/2003 Hives Meperidine And Related 10/18/2003 Hives Sulfa Antibiotics 02/04/1999 hives documented as of this encounter (statuses as of 11/12/2023) Medications Medication Sig Dispensed Refills Start Date [...] tablet by mouth daily. 10 Cap 1 Active Triamcinolone Acetonide 0.1 % External [...] cardiovascular disease),Heart failure, systolic, due to CAD ([facility]) Take 1 Tablet by mouth once [...] disease, chronic, stage III (GFR 30-59 ml/min) ([facility]),Dyslipidemia, goal LDL below 100 TAKE ONE TABLET BY MOUTH EVERY MORNING 90 Tablet 3 4 08/30/19 25 Active Doxazosin Mesylate 8 MG Oral TabletIndications:H TN, goal below 130/80 Take 1 Tablet by mouth at bedtime. 90 Tablet 2 4 Active Doxazosin Mesylate 8 MG Oral TabletIndications:H TN, goal below 130/80 Take 1 Tablet by mouth at bedtime. 90 Tablet 1 3 10/31/19 24 Discontinu ed(Refill) documented as of this encounter (statuses as of 11/12/2023) Active Problems Problem Noted Date Diagnosed Date [...] as of this encounter (statuses as of 11/12/2023) Resolved Problems Problem Noted Date Diagnosed Date [...] as of this encounter (statuses as of 11/12/2023) Immunizations Name Administration Dates Next Due COVID-19 mRNA, LNP-s, No Pre serve, 2-Dose Series (StandDesk) 10/18/2020,09/26/2020 Diptheria/Tetanus (Adult) 06/13/1988 Pneumococcal Conjugate Vacc, [...] encounter Miscellaneous Notes * Telephone Encounter - Iva Dixon PHARM Tech - 11/12/2023 10:57 AM EDT Pt calling to request doxazosin Informed pt that RX is available at their pharmacy. Pt verbalized understanding and stated they will check with their pharmacy regarding this medication. Thank You, Iva Dixon [facility] Composition Roll Maker And Cutter III [facility] ([facility]) (Formerly Telepharmacy) 11/12/2023, 10:57 AM * Telephone Encounter - Neena Hester, [facility] - 10/31/2023 10:02 PM EDTSigned Prescriptions: Disp Refills Doxazosin Mesylate 8 MG Oral Tablet 90 Tab*2 Sig: Take 1 Tabletby mouth at bedtime.Authorizing Provider: AINSLEY CHO User: NEENA HESTER documented in this encounter Plan of Treatment Upcoming Encounters Date Type Department Care Team (Latest Contact Info) Description 01/18/2024 3:40 PM EDT Office Visit [facility] [address] [place] [address] Ainsley Cho MD [address] [place] [address] 01/24/2024 11:45 AM EDT Hospital Encounter ENDO [facility], Endoscopy Room [facility] [address] [place] [address] Meredith Silverio MD [address] [place] [id number] 01/24/2024 11:45 AM EDT - 01/24/2024 12:15 PM EDT Surgery ENDO [facility], Endoscopy Room [facility] [address] [facility] [place] [address] Meredith Silverio MD [address] [place] [address] COLONOSCOPY FLEXIBLE PROXIMAL DIAGNOSTIC 01/30/2024 10:30 AM EDT Office Visit Hematology/Oncology [facility] [place] [address] [facility] [place] [address] Kylah Flores MD [address] [facility] [place] [address] Scheduled Procedures Name Priority Associated Diagnoses Date/Ti me COLONOSCOPY FLEXIBLE PROXIMAL DIAGNOSTIC Malignant neoplasm of sigmoid colon (HCC) 01/24/2024 11:45 AM EDT Health Maintenance Due Date Last Done Comments Alpha-1 Antitrypsin 1958 Zoster Vaccines (1 of 2) 1990 Depression Screening 12/03/2020 12/04/2019, 10/05/19 15 Albumin/Creatinine Ratio 01/11/2023 022, 01/05/2021, 09/04/2018, Additional history exists CKD PHOS USE SMARTSET 17483 01/11/2023 08/0 06/2021, 11/27/2020, 12/04/2019, Additional history exists FOBT ANNUALLY,AGES 18-90 01/18/2023 022, 01/18/2022, 08/26/2017 (Refused), Additional history exists COVID-19 Vaccine (2022- season) 2023 10/18/2020, 09/26/2020 GFR 11/30/2023 05/31/2023, 09/0 01/2023, 11/23/2022, Additional history exists TSH 01/13/2024 01/12/2023, 11/11, 07/21/2022, Additional history exists CKD HGB USE SMARTSET 16530 05/31/202405/31, 05/31/2023, 11/23/2022, Additional history exists O2 [...] this encounter Medical Devices Implanted Type Area Title Coordinator Device Identifier Shelf Expiration Date Model / Serial / Lot Lens Intraoc 21.5 - [id number] - [id number] Implanted:Qty: 1 on 02/12/2020 by Andrae Chan MD at OR [facility] Left: Eye [employer]CH [employer] LOMB 08/10/2024 [id number] / [id number] / Sofport Implanted:Qty: 1 on 02/26/2020 by Andrae Chan MD at OR [facility] Right: Eye 07/13/2024 [id number] / [id number] / [id number] documented as of this encounter Visit Diagnoses Diagnosis HTN, goal below 130/80 Unspecified essential hypertension Malignant neoplasm of sigmoid colon (HCC) Malignant neoplasm of sigmoid colon documented in this encounter Advance Directives * Full Code (Latest Code Status on File) Date Activated Date Inactivated Comments 04/28/2022 7:58 PM 04/30/2022 5:20 PM Question Answer Comments Discussion of Advance Direct jay occurred with: Not Discussed due to patient's condition Care Teams Machine Shorthand Teacher Relationship Specialty Start Date End Date Ainsley Cho MD [address] [place] [address] PCP - General Family Medicine 10/20/17 documented as of this encounter
--- OUTSIDE RECORDS SUMMARY | 2024-01-08 21:28 | External Medical Summary | Summary of Care ---
Author Name Unknown Organization [facility] Address [address] [place] [address] Phone [phone] Care Team Providers Care Logging Specialist Name Role Phone Delmer Cho MD Primary Care Provider [phone] Reason for Visit * Reason Comments Medication Refill Encounter Details Date Type Department Care Team (Late st Contact Info) Description 08/30/2023 Refill Cardiology, [facility] [address] [place] [address] Neena Banegas, DO [address] [place] [address] Old myocardial infarct; ASCVD (arteriosclerotic cardiovascular disease); Kidney disease, chronic, stage III (GFR 30-59 ml/min) ([facility]); Dyslipidemia, goal LDL below 100 Allergies Active Allergy Reactions Criticality Noted Date Comments Iodine 10/18/2003 Hives Meperidine And Related 10/18/2003 Hives Sulfa Antibiotics 02/04/1999 hives documented as of this encounter (statuses as of 09/05/2023) Medications Medication Sig Dispensed Refills Start Date [...] as of this encounter (statuses as of 09/05/2023) Active Problems Problem Noted Date Diagnosed Date [...] as of this encounter (statuses as of 09/05/2023) Resolved Problems Problem Noted Date Diagnosed Date [...] as of this encounter (statuses as of 09/05/2023) Immunizations Name Administration Dates Next Due COVID-19 [...] encounter Miscellaneous Notes * Telephone Encounter - Rah, Kelsey, qa consultant - 09/05/2023 9:46 AM EDT Pt calling regarding medication prescribed by a Specialist. Transferred to Specialty Call Center. Thank you, Kelsey Monreal Mailroom Supervisor I [facility] ([facility]) (Formerly Telepharmacy) 09/05/2023,9:46 AM * Telephone Encounter - Neena Banegas DO - 08/30/2023 5:44 PM EDTSigned Prescriptions: Disp Refills Atorvastatin Calcium 80 MG Oral Tablet (Li*90 Tab*3 Sig: TAKE ONE TABLET BY MOUTH EVERY MORNING Authorizing Provider: NEENA BANEGAS * Telephone Encounter - Lissette Valle CMA - 08/30/2023 1:04 PM EDTPending Prescriptions: Disp Refills Atorvastatin Calcium 80 MG Oral Tablet (Li*90 Tab*3 Sig: TAKE ONE TABLET BY MOUTH EVERY MORNING * Telephone Encounter - Lissette Valle CMA - 08/30/2023 1:03 PM EDT Did you pend patient's preferred pharmacy and medication before forwarding?yes Pharmacy: [facility] Pending Prescriptions: Disp Refills [...] Description 01/18/2024 3:40 PM EDT [facility] [address] [facility] [address] Delmer Cho MD [address] [facility] [id number] 01/24/2024 11:45 AM EDT Hospital Encounter ENDO [facility], Endoscopy Room [facility] [address] [facility] [place] [address] Meredith Silverio MD [address] [place] [address] 01/24/2024 11:45 AM EDT - 01/24/2024 12:15 PM EDT Surgery ENDO [facility], Endoscopy Room [facility] [address] [place] [phone] Meredith Silverio MD [address] [place] [address] COLONOSCOPY FLEXIBLE PROXIMAL DIAGNOSTIC Scheduled Procedures Name Priority Associated Diagnoses Date/Ti me COLONOSCOPY FLEXIBLE PROXIMAL DIAGNOSTIC Malignant neoplasm of sigmoid colon (HCC) 01/24/2024 11:45 AM EDT Health Maintenance Due Date Last Done Comments Alpha-1 Antitrypsin 1958 Zoster Vaccines (1 of 2) 1990 Depression Screening 12/03/2020 12/04/2019, 10/05/19 15 Albumin/Creatinine Ratio 01/11/2023 022, 01/05/2021, 09/04/2018, Additional history exists CKD PHOS USE SMARTSET 32563 01/11/2023 08/0 06/2021, 11/27/2020, 12/04/2019, Additional history exists FOBT ANNUALLY,AGES 18-90 01/18/2023 022, 01/18/2022, 08/26/2017 (Refused), Additional history exists COVID-19 Vaccine ( season) 2023 10/18/2020, 09/26/2020 GFR 11/30/2023 05/31/2023, 090 01/2023, 11/23/2022, Additional history exists TSH 01/13/2024 01/12/2023, 11/11, 07/21/2022, Additional history exists CKD HGB USE SMARTSET 31462 05/31/202405/31, 05/31/2023, 11/23/2022, Additional history exists O2 [...] this encounter Medical Devices Implanted Type Area Nut Sheller Device Identifier Shelf Expiration Date Model / Serial / Lot Lens Intraoc 21.5 - [id number] - [id number] Implanted:Qty: 1 on 02/12/2020 by Andrae Chan MD at OR [facility] Left: Eye BAUSCH & LOMB 08/10/2024 [id number] / [id number] / Sofport Implanted:Qty: 1 on 02/26/2020 by Andrae Chan MD at OR [facility] Right: Eye 07/13/2024 [id number] / [id number] / [id number] documented as of this encounter Visit Diagnoses [...] Discussed due to patient's condition Care Teams Logging Specialist Relationship Specialty Start Date End Date Delmer Cho MD [address] [place] [address] PCP - General Family Medicine 10/20/17 documented as of this encounter
--- OUTSIDE RECORDS SUMMARY | 2024-01-08 21:28 | External Medical Summary | Summary of Care ---
Author Name Unknown Organization [facility] Address [address] [place] [address] Phone [phone] Care Team Providers Care General Manager Land Department Name Role Phone Ainsley Cho MD Primary Care Provider Reason for Visit * Reason Onset Date Comments Medication Refill 11/23/2023 Encounter Details Date Type Department Care Team (Late st Contact Info) Description 11/23/2023 Refill [facility] [address] [place] [address] Ainsley Cho MD [address] [place] [address] Acquired hypothyroidism Allergies Active Allergy Reactions Criticality Noted Date Comments Iodine 10/18/2003 Hives Meperidine And Related 10/18/2003 Hives Sulfa Antibiotics 02/04/1999 hives documented as of this encounter (statuses as of 11/23/2023) Medications Medication Sig Dispensed Refills Start Date [...] chronic, stage III (GFR 30-59 ml/min) ([facility]),Dyslipidemia, goal LDL below 100 TAKE ONE TABLET [...] other meds). 90 Tablet 1 4 Active Levothyroxine Sodium 125 MCG Oral Tablet (Levoxyl)Indication s:Acquired hypothyroidism Take 1 Tablet by mouth in the morning. (at least 30 min prior to breakfast or other meds). 90 Tablet 3 3 11/23/19 24 Discontinu ed(Refill) documented as of this encounter (statuses as of 11/23/2023) Active Problems Problem Noted Date Diagnosed Date [...] as of this encounter (statuses as of 11/23/2023) Resolved Problems Problem Noted Date Diagnosed Date [...] as of this encounter (statuses as of 11/23/2023) Immunizations Name Administration Dates Next Due COVID-19 mRNA, LNP-s, No Pre serve, 2-Dose Series (Kiw[employer]) 10/18/2020,09/26/2020 Pneumococcal Conjugate Vacc, 13 Valent (Prevnar) [...] encounter Miscellaneous Notes * Telephone Encounter - Misty Jiang [facility] - 11/23/2023 10:29 AM EDTSigned Prescriptions: Disp Refills Levothyroxine Sodium 125 MCG Oral Tablet (*90 Tab*1 Sig: Take 1 Tablet by mouth in the morning. (at least 30 min prior to breakfast or other meds). Authorizing Provider: AINSLEY CHO Ordering User: MISTY JIANG * Telephone Encounter - Chidi Haywood, slitter scorer - 11/23/2023 10:12 AM EDT Did you pend patient's preferred pharmacy and medication before forwarding?yes [facility] [facility] Pending Prescriptions: Disp Refills Levothyroxine Sodium 125 MCG Oral Tablet *90 Tab*3 Sig: Take 1 Tablet by mouth in the morning. (at least 30 min prior to breakfast or other meds). Last Visit: 07/20/2023 (in office), Visit date not found (telemedicine) Next Visit: 01/18/2024 If no future appointments scheduled, and last appointment is greater than a year ago, please schedule patient for a follow-up appointment Last date the medication was ordered: 11/30/2022 Is this request for a controlled substance?No [...] Description 01/18/2024 3:40 PM EDT Office Visit [facility] [address] [facility] [place] [phone] Ainsley Cho MD [address] [place] [address] 01/24/2024 11:45 AM EDT Hospital Encounter ENDO [facility], Endoscopy Room [facility] [address] [facility] [place] [address] Meredith Silverio MD [address] [place] [address] 01/24/2024 11:45 AM EDT - 01/24/2024 12:15 PM EDT Surgery ENDO [facility], Endoscopy Room [facility] [address] [facility] [place] [address] Meredith Silverio MD [address] [place] [address] COLONOSCOPY FLEXIBLE PROXIMAL DIAGNOSTIC 01/30/2024 10:30 AM EDT Office Visit Hematology[facility] [address] [place] [phone] Kylah Flores MD [address] [place] [address] Scheduled Procedures Name Priority Associated Diagnoses Date/Ti me COLONOSCOPY FLEXIBLE PROXIMAL DIAGNOSTIC Malignant neoplasm of sigmoid colon (HCC) 01/24/2024 11:45 AM EDT Health Maintenance Due Date Last Done Comments Alpha-1 Antitrypsin 1958 Zoster Vaccines (1 of 2) 1990 Depression Screening 12/03/2020 12/04/2019, 10/05/19 15 Albumin/Creatinine Ratio 01/11/2023 022, 01/05/2021, 09/04/2018, Additional history exists CKD PHOS USE SMARTSET 81643 01/11/2023 08/0 06/2021, 11/27/2020, 12/04/2019, Additional history exists FOBT ANNUALLY,AGES 18-90 01/18/2023 022, 01/18/2022, 08/26/2017 (Refused), Additional history exists COVID-19 Vaccine ( season) 2023 10/18/2020, 09/26/2020 GFR 11/30/2023 05/31/2023, 090 01/2023, 11/23/2022, Additional history exists TSH 01/13/2024 01/12/2023, 0608/2022, 07/21/2022, Additional history exists CKD HGB USE SMARTSET 33103 05/31/202405/31, 05/31/2023, 11/23/2022, Additional history exists O2 [...] this encounter Medical Devices Implanted Type Area Printed Circuit Board Pcb Designer Device Identifier Shelf Expiration Date Model / Serial / Lot Lens Intraoc 21.5 - [id number] - [id number] Implanted:Qty: 1 on 02/12/2020 by Andrae Chan MD at OR [facility] Left: Eye BAUSCH & LOMB 08/10/2024 [id number] / [id number] / Sofport Implanted:Qty: 1 on 02/26/2020 by Andrae Chan MD at OR [facility] Right: Eye 07/13/2024 [id number] / [id number] / [id number] documented as of this encounter Visit Diagnoses Diagnosis Acquired hypothyroidism Unspecified hypothyroidism Malignant neoplasm of sigmoid colon (HCC) Malignant neoplasm of sigmoid colon documented in this encounter Advance Directives * Full Code (Latest Code Status on File) Date Activated Date Inactivated Comments 04/28/2022 7:58 PM 04/30/2022 5:20 PM Question Answer Comments Discussion of Advance Direct jay occurred with: Not Discussed due to patient's condition Care Teams General Manager Land Department Relationship Specialty Start Date End Date Ainsley Cho MD [address] [facility] [place] [address] PCP - General Family Medicine 10/20/17 documented as of this encounter
--- OUTSIDE RECORDS SUMMARY | 2024-01-08 21:28 | External Medical Summary | Summary of Care ---
Author Name Unknown Organization [facility] Address [address] [place] [address] Phone [phone] Care Team Providers Care Painter Helper Name Role Phone Delmer Cho MD Primary Care Provider [phone] Reason for Visit * Reason Onset Date Comments Medication Refill 09/05/2023 Encounter Details Date Type Department Care Team (Late st Contact Info) Description 09/05/2023 Refill [address]iology, [facility] [address] [place] [address] Bora Vasquez, [address] [place] [address] Allergies Active Allergy Reactions Criticality Noted Date [...] other meds). 90 Tablet 3 11/30/2022 Active Finasteride 5 MG Oral Tablet (Proscar)Indications [...] cardiovascular disease),Heart failure, systolic, due to CAD ([facility]) Take 1 Tablet by mouth once a day on Tuesday, Tuesday, and Tuesday only. 50 Tablet 3 04/04/2023 Active Doxazosin Mesylate 8 MG Oral TabletIndications:HT N, goal below 130/80 Take 1 Tablet by mouth at bedtime. 90 Tablet 1 05/10/2023 Active Famotidine 20 MG Oral Tablet (Pepcid)Indications: Gastroesophageal reflux disease without esophagitis Take 1 Tablet by mouth in the morning. 90 Tablet 3 07/20/2023 Active Atorvastatin Calcium 80 MG Oral Tablet (Lipitor)Indications :Old myocardial infarct,ASCVD (arteriosclerotic cardiovascular disease),Kidney disease, chronic, stage III (GFR 30-59 ml/min) ([facility]),Dyslipidemia, goal LDL below 100 TAKE ONE TABLET BY MOUTH EVERY MORNING 90 Tablet 3 08/30/2023 Active documented as of this encounter (statuses [...] mRNA, LNP-s, No Pre serve, 2-Dose Series ([email or web address]) 10/18/2020,09/26/2020 Pneumococcal Conjugate Vacc, 13 Valent (Prevnar) [...] encounter Miscellaneous Notes * Telephone Encounter - Ashlie Can CPhT - 09/05/2023 9:48 AM EDT Pt calling to request Atorvastatin. Informed pt that RX is available at their pharmacy. Pt verbalized understanding and stated they will check with their pharmacy regarding this medication. Thanks, Ashlie Can CPhT, Tech II [facility] ([facility]) (formerly Telepharmacy) [address] [place] [address] documented in this encounter Plan of Treatment Upcoming Encounters Date Type Department Care Team (Latest Contact Info) Description 01/18/2024 3:40 PM EDT Office Visit [facility] [address] [place] [facility] [phone] Delmer Cho MD [address] [place], [place] [phone] 01/24/2024 11:45 AM EDT Hospital Encounter ENDO [facility], Endoscopy Room [facility] [address] [facility] [place] [address] Meredith Silverio MD [address] [place] [address] 01/24/2024 11:45 AM EDT - 01/24/2024 12:15 PM EDT Surgery ENDO [facility], Endoscopy Room [facility] [address] [facility] [place] [phone] Meredith Silverio MD [address] [place] [place] [phone] COLONOSCOPY FLEXIBLE PROXIMAL DIAGNOSTIC Scheduled Procedures Name Priority Associated Diagnoses Date/Ti me COLONOSCOPY FLEXIBLE PROXIMAL DIAGNOSTIC Malignant neoplasm of sigmoid colon (HCC) 01/24/2024 11:45 AM EDT Health Maintenance Due Date Last Done Comments Alpha-1 Antitrypsin 1958 Zoster Vaccines (1 of 2) 1990 Depression Screening 12/03/2020 12/04/2019, 10/05/19 15 Albumin/Creatinine Ratio 01/11/2023 022, 01/05/2021, 09/04/2018, Additional history exists CKD PHOS USE SMARTSET 97385 01/11/2023 08/0 06/2021, 11/27/2020, 12/04/2019, Additional history exists FOBT ANNUALLY,AGES 18-90 01/18/2023 022, 01/18/2022, 08/26/2017 (Refused), Additional history exists COVID-19 Vaccine (3 - 2022- season) 2023 10/18/2020, 09/26/2020 GFR 11/30/2023 05/31/2023, 01/2023, 11/23/2022, Additional history exists TSH 01/13/2024 01/12/2023, 11/11, 07/21/2022, Additional history exists CKD HGB USE SMARTSET 08282 05/31/202405/31, 05/31/2023, 11/23/2022, Additional history exists O2 [...] this encounter Medical Devices Implanted Type Area Viscosity Worker Device Identifier Shelf Expiration Date Model / Serial / Lot Lens Intraoc 21.5 - [id number] - [id number] Implanted:Qty: 1 on 02/12/2020 by Andrae Chan MD at OR [facility] Left: Eye BAUSCH & LOMB 08/10/2024 [id number] / [id number] / Sofport Implanted:Qty: 1 on 02/26/2020 by Andrae Chan MD at OR [facility] Right: Eye 07/13/2024 [id number] / [id number] / [id number] documented as of this encounter Advance Directives Latest Code Status on File Code Status Date Activated Date Inactivated Comments Full Code 04/28/2022 7:58 PM 04/30/2022 5:20 PM Question Answer Comments Discussion of Advance Directives occurred with: Not Discussed due to patient's condition Care Teams Painter Helper Relationship Specialty Start Date End Date Delmer Cho MD [address] [place] [address] PCP - General Family Medicine 10/20/17 documented as of this encounter
--- OUTSIDE RECORDS SUMMARY | 2024-01-08 21:28 | External Medical Summary | Summary of Care ---
Author Name Unknown Organization [facility] Address [address] [place] [address] Phone [phone] Care Team Providers Care Entry Level Marketing Assistant Name Role Phone Delmer Cho MD Primary Care Provider [phone] Reason for Visit * Reason Comments Follow Up 6 month return Encounter Details Date Type Department Care Team (Latest Contact Info) Description 07/20/2023 3:40 PM EST Office Visit [facility] [address] [place] [address] Delmer Cho MD [address] [place] [address] Risk and functional assessment*; ASCVD (arteriosclerotic cardiovascular disease); Acquired hypothyroidism; Other emphysema (HCC); Chronic kidney disease, stage 3a (HCC); Hypertensive heart disease with systolic heart failure and stage 3a chronic kidney disease, unspecified HF chronicity (HCC); HTN, goal below 130/80; Dyslipidemia, goal LDL below 70; Hyperglycemia; Gastroesophageal reflux disease without esophagitis Allergies Active Allergy Reactions Criticality Noted Date Comments Iodine 10/18/2003 Hives Meperidine And Related 10/18/2003 Hives Sulfa Antibiotics 02/04/1999 hives documented as of this encounter (statuses as of 07/20/2023) Medications Medication Sig Dispensed Refills Start Date [...] stage III (GFR 30-59 ml/min) ([facility]),Dyslipidemia, goal LDL below 100 TAKE ONE TABLET BY MOUTH EVERY MORNING 100 Tablet 3 06/22/2022 4 Active Finasteride 5 MG Oral Tablet (Proscar)Indications [...] the morning. 90 Tablet 3 07/20/2023 Active documented as of this encounter (statuses as of 07/20/2023) Active Problems Problem Noted Date Diagnosed Date [...] as of this encounter (statuses as of 07/20/2023) Resolved Problems Problem Noted Date Diagnosed Date [...] as of this encounter (statuses as of 07/20/2023) Immunizations Name Administration Dates Next Due COVID-19 mRNA, LNP-s, No Pre serve, 2-Dose Series ([employer]) 10/18/2020,09/26/2020 Pneumococcal Conjugate Vacc, 13 Valent (Prevnar) [...] Passive Smoke Exposure: Never Smokeless Tobacco: Never Tobacco Cessation:Counseling Given: Not Answered Alcohol Use Standard Drinks/Week Comments Yes 0 [...] Sign Reading Time Taken Comments Blood Pressure 98/68 07/20/2023 3:41 PM EST Pulse 70 07/20/2023 3:41 PM EST Temperature 36.4 C (97.5 F) 07/20/2023 3:41 PM ES T Respiratory Rate 18 07/20/2023 3:41 PM EST Oxygen Saturation 94% 07/20/2023 3:41 PM EST Inhaled Oxygen Concentration - - Weight 81.2 kg (179 lb) 07/20/2023 3:41 PM EST Height - - Body Mass Index [...] this encounter Patient Instructions * Patient Instructions* Alia Stewart LPN - 07/20/2023 3:47 PM EST Patient Instructions - Fall Prevention (This education is for all patients over 65 regardless of symptoms) Remember to take your current medications as prescribed. In order to prevent falls, you are encouraged to: Exercise Utilize assistive/adaptive devices Avoid multifocal lenses when walking Avoid hazards in home Maintain a regular toileting schedule Any questions please contact our office. Preventing Falls in the Home (This education is for all patients over 65 regardless of symptoms) As you get older, falls are more likely. Thats because your reaction time slows. Your muscles and joints may also get stiffer, making them less flexible. Illness, medications, and vision changes can also affect your balance. A fall could leave you unable to live on your own. To make your home safer, follow these tips: Floors Put nonskid pads under area rugs Remove throw rugs Replace worn floor coverings Tack carpets firmly to each step on carpeted stairs. Put nonskid strips on the edges of uncarpeted stairs Keep floors and stairs free of clutter and cords Arrange furniture so there are clear pathways Clean up any spills right away Bathrooms Install grab bars in the tub or shower Apply nonskid strips or put a nonskid rubber mat in the tub or shower Sit on a bath chair to bathe Use bathmats with nonskid backing Lighting Keep a flashlight in each room Put a nightlight along the pathway between the bedroom and the bathroom [employer] Patient Education Copyright 2008 - 2010 [employer] except where otherwise noted Preventing Falls: Exercises to Improve Balance, Flexibility, Strength, and Staying Power (This education is for all patients over 65 regardless of symptoms) Certain types of exercises may help make you less likely to fall. Try the ones below. Or do other exercises that your healthcare provider suggests. Depending on your health, you may need to start slowly. Dont let that stop you. Even small amounts of exercise can help you. Be sure to talk to yourhealthcare provider before starting any exercise program. Improve Balance Many types of exercise can help improve balance. Cristo chi and yoga are good examples. Heres another one to try. You can do it anytime and almost anywhere. Stand next to a counter or solid support. Push yourself up onto your tiptoes. Hold for 5 seconds. If you start to lose your balance, hold on to the counter. Rest and repeat 5 times. Work up to holding for 20 to 30 seconds, if you can. Increase Flexibility Being more flexible makes it easier for you to move around safely. Try exercises like the seated hamstring stretch. Sit in a chair and put one foot on a stool. Straighten your leg and reach with both hands down either side of your leg. Reach as far down your leg as you can. Hold for about 20 seconds. Go back to the starting position. Then repeat 5 times. Switch legs. Build Strength Resistance exercises help build strength. You can do them without equipment. Or you can use weights, elastic bands, or special machines. One such exercise is called the biceps curl. You can hold a 1 pound weight or even a can of soup. Do this exercise at least 3 times a week. Strive for everyday. Sit up straight in a chair. Keep your elbow close to your body and your wrist straight. Bend your arm, moving your hand up to your shoulder. Then slowly lower your arm. Repeat 5 times. Switch to the other arm. Build Your Staying Power Aerobic exercises make your heart and lungs stronger so you can keep moving longer. Walking and swimming are two of the best types of exercises you can do. Using a stationary bike is great, too. Find an aerobic exercise that you enjoy. Start slowly and build up. Even 5 minutes is helpful. Aimfor a goal of 30 minutes, at least 3 times a week. You dont have to do 30 minutes in one session. Break it up and walk a little throughout the day. More Helpful Tips Start easy. Slowly work up to doing more. Talk with your healthcare provider about the best exercises for you. Call senior centers or health clubs about exercise programs. If needed, have a family member watch you walk every so often to check your stability. Exercise with a friend. Choose an activity you both enjoy. Try exercises that you can do anytime, anywhere. Here are two examples. Have someone with you when you first try these: Practice walking by placing one foot right in front of the other. Stand up and sit down 10 times. Repeat this throughout the day. [employer] Patient Education Copyright 2008 [employer] except where otherwise noted. Preventing Falls: Moving Safely Using a Cane or Walker (This education is for all patients over 65 regardless of symptoms) Keep the cane away from your feet so you dont trip. A walking aid, such as a cane or walker, can help you stay more independent and avoid falls. Remember to keep your walking aid within easy reach when youre in a chair or in bed. And learn how to use it safely so you dont injure yourself. Using a Cane If you have a stronger side, hold the cane on that side. Get your balance. Move the cane and your weaker leg forward. Support your weight on both the cane and your weaker side. Step with your stronger leg. Start again from step 1. If youre using a folding walker, be sure you know how to lock it open. Check that its locked open before each use. Using a Walker Roll the walker (or lift it, if youre using one without wheels) forward about 12 inches. Step forward with your weaker leg first. Use the walker to help keep your balance. Bring your other foot forward to the center of the walker. Start again from step 1. Helpful Tips Check with your healthcare provider about the right walking aid to use. Ask about a walker with a seat attached. Check the tips of your cane or walker to make sure they have nonskid covers. Move slowly from room to room. Dont austin. Sit down to get dressed. Use a josephine pack or backpack to keep your hands free. Get help for jobs that mean climbing, even on a stepstool. [employer] Patient Education Copyright 2008 - 2010 [employer] except where otherwise noted. Treating Urinary Incontinence in Men (This education is for all patients over 65 regardless of symptoms) You can't always control the release of urine. You may leak urine. Or you may not be able to hold your urine until you can get to a bathroom. This is called urinary incontinence. The problem can be managed. Talk to your doctor about your treatment options. Taking Medications Prescription medications may help you. They may: Help the sphincter to work better. (This is the muscle that closes to keep urine from leaking out of the bladder.) Help stop the bladder from odalis too often to push urine out. Help the bladder muscles contract with more force. Help relax the sphincter muscle and allow urine to flow more freely. Making Changes to Your Routine Certain changes in your daily routine may help. These include: Avoiding caffeine and alcohol. Using timed voiding. This is following a schedule for drinking fluids and urinating. Doing Kegel exercises daily. These exercises involve tightening the muscles in your sphincter and around your bladder to help strengthen them. Your doctor can explain how to do them. Using a Catheter A catheter is a narrow tube that is inserted through the urethra into the bladder. It drains urine.A condom catheter covers the penis. It channels urine into a collection bag. It is worn most of thetime. Intermittent catheterization means inserting a catheter to drain the bladder, then removing it. This is done on a regular schedule. Having Surgery If other options don't work, surgery may be recommended. If surgery is an option, your healthcare provider can discuss it with you and explain its risks and benefits. Healing After Prostate Surgery Surgery on the prostate gland can cause incontinence. Most often, the incontinence is only for a short time. It clears up when healing is complete. Very rarely, prostate surgery can result in permanent incontinence. documented in this encounter Progress Notes * Delmer Cho MD - 07/20/2023 4:05 PM EST Subjective: Bora Pope is a 83 year old male. Chief Complaint Patient presents with Follow Up 6 month return HPI: 83-year-old seen today for routine six-month recheck. Known history of atherosclerotic cardiovascular disease as well as COPD dyslipidemia and CKD 3. in general all these have been stable over the last couple years. He also has a history of colon cancer. His treatment was simply surgical excision. He recently had a CEA level as ordered by his colon cancer surgeon. That was normal 1.0. He is having what sounds like heartburn at night especially when he is lying down if he lies on hisright side. If he rolls over in his left side he does not have the heartburn. He is taking omeprazole 20 mg daily in the morning. Review of blood work that has been done over the last year and a half shows that it least on 2 occasions his blood sugar was elevated in the 120s to 140s. He has not had hemoglobin A1c. Last lipidprofile was nearly 2 years ago. His renal function GFR value is holding steady in the 50s. Patient Active Problem List Diagnosis Code Calculus of ureter N20.1 Gastroesophageal reflux disease without esophagitis K21.9 Elevated prostate specific antigen (PSA) R97.20 ASCVD (arteriosclerotic cardiovascular disease) I25.10 Hypothyroidism E03.9 Old myocardial infarct I25.2 DVT prophylaxis Z79.899 Sun-damaged skin L57.8 Frequent PVCs I49.3 Inguinal hernia K40.90 Dyslipidemia, goal LDL below 70 E78.5 History of tobacco use Z87.891 Chronic kidney disease, stage 3 unspecified (HCC) N18.30 Heart failure, systolic, due to CAD (HCC) I50.20, I25.10 Chronic obstructive pulmonary disease (HCC) J44.9 Other emphysema (HCC) J43.8 Other specified peripheral vascular diseases (HCC) I73.89 HTN, goal below 130/80 I10 Hypertensive heart disease with systolic heart failure and stage 3a chronic kidney disease (HCC) I13.0, I50.20, N18.31 Colon cancer ([facility]) C18.9 Post-op pain G89.18 Chronic kidney disease, stage 3a (HCC) N18.31 Current Outpatient Medications Medication Sig Dispense Refill ASPIRIN 81 MG PO TBE Take by mouth. Indications: takes in the evening 90 Tab 3 Triamcinolone Acetonide 0.1 % External Cream (Aristocort) Apply topically to affected area 2 times a day . To affected area. 80 g 5 Acetaminophen 500 MG Oral Tablet (Tylenol) 2 caps every 8 hours for 3 days, then 1 cap every 4 hours as needed for pain. Do not exceed 3000mg acetaminophen (Tylenol) every 24 hours. 1 Tablet 0 Levothyroxine Sodium 125 MCG Oral Tablet (Levoxyl) Take 1 Tablet by mouth in the morning. (at least30 min prior to breakfast or other meds). 90 Tablet 3 Atorvastatin Calcium 80 MG Oral Tablet (Lipitor) TAKE ONE TABLET BY MOUTH EVERY MORNING 100 Tablet 3 Finasteride 5 MG Oral Tablet (Proscar) Take 1 Tablet by mouth in the morning. 90 Tablet 3 Omeprazole 20 MG Oral Capsule Delayed Release (PriLOSEC) Take 1 Capsule by mouth in the morning. 1 hour before the first meal of the day. 90 Capsule 3 predniSONE 50 MG Oral Tablet (Deltasone) Take 1 tablet (50mg) by mouth 13 hours, 7 hours and [address] scan. 3 Tablet 0 diphenhydrAMINE HCl 25 MG Oral Capsule (Benadryl Allergy) Take 1 capsule (50mg) by mouth [address] scan. 2 Capsule 0 Metoprolol Succinate ER 25 MG Oral Tablet Extended Release 24 Hour (toPROL XL) Take 1 Tablet by mouth daily. 90 Tablet 3 Furosemide 20 MG Oral Tablet (Lasix) Take 1 Tablet by mouth once a day on Tuesday, Tuesday, and Tuesday only. 50 Tablet 3 Doxazosin Mesylate 8 MG Oral Tablet Take 1 Tablet by mouth at bedtime. 90 Tablet 1 Famotidine 20 MG Oral Tablet (Pepcid) Take 1 Tablet by mouth in the morning. 90 Tablet 3 Diclofenac Sodium 1 % External Gel (Voltaren) Apply topically to affected area 4 times a day as needed for Pain. Apply to L knee (Patient not taking: Reported on 01/12/2023) 100 g 11 Omeprazole 40 MG Oral Capsule Delayed Release (PriLOSEC) Take one tablet by mouth daily. 10 Cap 0 Nitroglycerin 0.4 MG Sublingual Tablet Sublingual (Nitrostat) Place 1 Tablet under the tongue as needed for Pain, Chest. May repeat 3 times. If chest pain continues, call 911. (Patient not taking: Reported on 12/23/2022) 25 Tablet 5 No current facility-administered medications for this visit. Review of patient's allergies indicates: Allergen Reactions Iodine Hives Meperidine And Related Hives Sulfa Antibiotics hives Objective: BP 98/68 | Pulse 70 | Temp 36.4 C (97.5 F) | Resp 18 | Wt 81.2 kg (179 lb) | SpO2 94% | BMI 28.89 kg/m | BSA 1.94 m Physical Exam: CONST: alert, pleasant, no acute distress HEAD: normocephalic, atraumatic NECK: supple, soft, no adenopathy Eyes - PERRLA, EOM'I OROPHARYNX: clear, no swelling or erythema, moist CV: regular rate and rhythm, no murmur CHEST: clear to auscultation bilaterally, no rales or wheezing ABD: soft, non tender, non distended, no masses or hepatosplenomegaly EXT: no edema, no joint swelling or deformities, ASSESSMENT/PLAN: ASCVD (arteriosclerotic cardiovascular disease) Acquired [id number]-[id number]. Last TSH February 02 1.0. Continue levothyroxine 125 mcg daily Other emphysema (HCC) stable Chronic kidney disease, stage 3a (HCC)-renal function is stable. No intervention necessary Hypertensive heart disease with systolic heart failure and stage 3a chronic kidney disease, unspecified HF chronicity (HCC) HTN, goal below 130/80-his blood pressure is on the low side today. He has not symptomatic i.e. no Um lightheadedness. This is just 1 reading that as low on so I do not think it is prudent back off on metoprolol or Lasix. Dyslipidemia, goal LDL below 70 - LIPID PANEL WITH DIRECT LDL IF TG IS HIGH; Future; Expected date: 07/20/2023 Continue atorvastatin 80 mg daily Hyperglycemia-rule out diabetes. Check hemoglobin A1c - HEMOGLOBIN A1C; Future; Expected date: 07/20/2023 Gastroesophageal reflux disease without esophagitis. He will remain on omeprazole 20 mg daily in the morning and add famotidine 20 mg daily in the evening. If that does not work he is going to have the concentrate more lying on his left side - Famotidine 20 MG Oral Tablet (Pepcid); Take 1 Tablet by mouth in the morning. Follow Up: Return in about 6 months (around 01/18/2024) for Return with Physician. | For: Return withPhysician | Check-out note: Rtc for fasting lab anytme in next month Delmer Cho MD documented in this encounter Nursing Notes * Alia Stewart LPN - 07/20/2023 3:47 PM EST The patient has been properly identified by confirmation of name and date of . Chief Complaint Patient presents with Follow Up 6 month return documented in this encounter Plan of Treatment Upcoming Encounters Date Type Department Care Team (Latest Contact Info) Description 09/08/2023 10:15 AM EDT Hospital Encounter [facility] [address] [facility] [phone] Lucero Hassan, 09/08/2023 10:15 AM EDT - 09/08/2023 10:45 AM EDT Surgery ENDO [facility], Endoscopy Room [facility] [address] [place] [phone] Lucero Hassan, DO COLONOSCOPY FLEXIBLE PROXIMAL DIAGNOSTIC 10/05/2023 11:00 AM EDT Office Visit General Surgery, [facility] [address] [place] [address] Flavia Garcia MD [address] [place] [address] 10/11/2023 1:00 PM EDT Office Visit Hematology/Oncology [facility] [address] [place] [address] Kylah Flores MD [address] [place] [address] 01/18/2024 3:40 PM EDT Office Visit [facility] [address] [place] [phone] Delmer Cho MD [address] [place] [address] Scheduled Orders Name Type Priority Associated Diagnoses Orde r Schedule HEMOGLOBIN A1C Lab Routine Hyperglycemia Expected: 07/20/2023 (Approximate), Expires: 07/19/2024 LIPID PANEL WITH DIRECT LDL IF TG IS HIGH Lab Routine Dyslipidemia, goal LDL below 70 Expected: 07/20/2023, Expires: 07/20/2024 Scheduled Procedures Name Priority Associated Diagnoses Date/Ti me COLONOSCOPY FLEXIBLE PROXIMAL DIAGNOSTIC Malignant neoplasm of sigmoid colon (HCC) 09/08/2023 10:15 AM EDT Health Maintenance Due Date Last Done Comments Alpha-1 Antitrypsin 1958 Zoster Vaccines (1 of 2) 1990 Depression Screening 12/03/2020 12/04/2019, 10/05/19 15 Albumin/Creatinine Ratio 01/11/2023 022, 01/05/2021, 09/04/2018, Additional history exists CKD PHOS USE SMARTSET 54791 01/11/2023 08/0 06/2021, 11/27/2020, 12/04/2019, Additional history exists FOBT ANNUALLY,AGES 18-90 01/18/2023 022, 01/18/2022, 08/26/2017 (Refused), Additional history exists COVID-19 Vaccine ( season) 2023 10/18/2020, 09/26/2020 GFR 11/30/2023 05/31/2023, 09/0 01/2023, 11/23/2022, Additional history exists TSH 01/13/2024 01/12/2023, 0608/2022, 07/21/2022, Additional history exists CKD HGB USE SMARTSET 21426 05/31/202405/31, 05/31/2023, 11/23/2022, Additional history exists O2 [...] this encounter Medical Devices Implanted Type Area Tech Intern Device Identifier Shelf Expiration Date Model / Serial / Lot Lens Intraoc 21.5 - [id number] - [id number] Implanted:Qty: 1 on 02/12/2020 by Andrae Chan MD at OR [facility] Left: Eye [employer] 08/10/2024 [id number] / [id number] / [place] Implanted:Qty: 1 on 02/26/2020 by Andrae Chan MD at OR [facility] Right: Eye 07/13/2024 [id number] / [id number] / [id number] documented as of this encounter Visit Diagnoses Diagnosis Risk and functional assessment- Primary Screening for unspecified condition ASCVD (arteriosclerotic cardiovascular disease) Unspecified cardiovascular disease Acquired hypothyroidism Unspecified hypothyroidism Other emphysema (HCC) Other emphysema Chronic kidney disease, stage 3a (HCC) Hypertensive heart disease with systolic heart failure and stage 3a chronic kidney disease, unspecified HF chronicity (HCC) HTN, goal below 130/80 Unspecified essential hypertension Dyslipidemia, goal LDL below 70 Other and unspecified hyperlipidemia Hyperglycemia Other abnormal glucose Gastroesophageal reflux disease without esophagitis Esophageal reflux Malignant neoplasm of sigmoid colon (HCC) Malignant neoplasm of sigmoid colon documented in this encounter Advance Directives Latest Code Status on File Code Status Date Activated Date Inactivated Comments Full Code 04/28/2022 7:58 PM 04/30/2022 5:20 PM Question Answer Comments Discussion of Advance Directives occurred with: Not Discussed due to patient's condition Care Teams Entry Level Marketing Assistant Relationship Specialty Start Date End Date Delmer Cho MD [address] [place] [address] PCP - General Family Medicine 10/20/17 documented as of this encounter"
--- OUTSIDE RECORDS SUMMARY | 2024-01-08 21:28 | External Medical Summary | Summary of Care ---
Author Name Unknown Organization [facility] Address [address] [place] [address] Phone [phone] Care Team Providers Care Drying Machine Back Tender Name Role Phone Ainsley Cho MD Primary Care Provider Reason for Visit * Reason Comments Medication Refill Encounter Details Date Type Department Care Team (Late st Contact Info) Description 10/31/2023 Refill [facility] [address] [place] [address] Ainsley Cho MD [address] [place] [address] HTN, goal below 130/80 Allergies Active Allergy Reactions Criticality Noted Date Comments Iodine 10/18/2003 Hives Meperidine And Related 10/18/2003 Hives Sulfa Antibiotics 02/04/1999 hives documented as of this encounter (statuses as of 10/31/2023) Medications Medication Sig Dispensed Refills Start Date [...] cardiovascular disease),Heart failure, systolic, due to CAD ([facility]) Take 1 Tablet by mouth once [...] disease, chronic, stage III (GFR 30-59 ml/min) ([facility]),Dyslipidemia, goal LDL below 100 TAKE ONE [...] as of this encounter (statuses as of 10/31/2023) Active Problems Problem Noted Date Diagnosed Date [...] as of this encounter (statuses as of 10/31/2023) Resolved Problems Problem Noted Date Diagnosed Date [...] as of this encounter (statuses as of 10/31/2023) Immunizations Name Administration Dates Next Due COVID-19 mRNA, LNP-s, No Pre serve, 2-Dose Series ([employer]) 10/18/2020,09/26/2020 Pneumococcal Conjugate Vacc, 13 Valent (Prevnar) [...] Miscellaneous Notes * Telephone Encounter - Neena Hester, [facility] - 10/31/2023 10:02 PM EDTSigned Prescriptions: Disp Refills Doxazosin Mesylate 8 MG Oral Tablet 90 Tab*2 Sig: Take 1 Tablet by mouth at bedtime.Authorizing Provider: AINSLEY CHO User: NEENA HESTER documented in this encounter Plan of Treatment Upcoming Encounters Date Type Department Care Team (Latest Contact Info) Description 01/18/2024 3:40 PM EDT Office Visit [facility] [address] [place] [facility] [phone] Ainsley Cho MD [address], [place] [phone] 01/24/2024 11:45 AM EDT Hospital Encounter ENDO O[facility], Endoscopy Room [facility] [address] [facility] [phone] Meredith Silverio MD [address] [place] [id number] 01/24/2024 11:45 AM EDT - 01/24/2024 12:15 PM EDT Surgery ENDO O[facility], Endoscopy Room [facility] [address] [place] [phone] Meredith Silverio MD [address] [place] [address] COLONOSCOPY FLEXIBLE PROXIMAL DIAGNOSTIC 01/30/2024 10:30 AM EDT Office Visit Hematology/Oncology [facility] [place] [address] [place] [phone] Kylah Flores MD [address] [facility] [address] Scheduled Procedures Name Priority Associated Diagnoses Date/Ti me COLONOSCOPY FLEXIBLE PROXIMAL DIAGNOSTIC Malignant neoplasm of sigmoid colon (HCC) 01/24/2024 11:45 AM EDT Health Maintenance Due Date Last Done Comments Alpha-1 Antitrypsin 1958 Zoster Vaccines (1 of 2) 1990 Depression Screening 12/03/2020 12/04/2019, 10/05/19 15 Albumin/Creatinine Ratio 01/11/2023 022, 01/05/2021, 09/04/2018, Additional history exists CKD PHOS USE SMARTSET 13305 01/11/2023 08/0 06/2021, 11/27/2020, 12/04/2019, Additional history exists FOBT ANNUALLY,AGES 18-90 01/18/2023 022, 01/18/2022, 08/26/2017 (Refused), Additional history exists COVID-19 Vaccine ( season) 2023 10/18/2020, 09/26/2020 GFR 11/30/2023 05/31/2023, 090 01/2023, 11/23/2022, Additional history exists TSH 01/13/2024 01/12/2023, 11/11, 07/21/2022, Additional history exists CKD HGB USE SMARTSET 76812 05/31/202405/31, 05/31/2023, 11/23/2022, Additional history exists O2 [...] this encounter Medical Devices Implanted Type Area Resident Care Technician Device Identifier Shelf Expiration Date Model / Serial / Lot Lens Intraoc 21.5 - [id number] - [id number] Implanted:Qty: 1 on 02/12/2020 by Andrae Chan MD at OR [facility] Left: Eye [employer]OMB 08/10/2024 [id number] / [id number] / Sofport Implanted:Qty: 1 on 02/26/2020 by Andrae Chan MD at OR [facility] Right: Eye 07/13/2024 [id number] / [id number] / [id number] documented as of this encounter Visit Diagnoses [...] Discussed due to patient's condition Care Teams Drying Machine Back Tender Relationship Specialty Start Date End Date Ainsley Cho MD [address] [place] [address] PCP - General Family Medicine 10/20/17 documented as of this encounter
--- OUTSIDE RECORDS SUMMARY | 2024-01-08 21:28 | External Medical Summary | Summary of Care ---
Author Name Unknown Organization [facility] Address [address] [facility] [place] [address] Phone [phone] Care Team Providers Care Automobile Glass Technician Name Role Phone Delmer Cho MD Primary Care Provider [phone] Encounter Details Date Type Department Care Team (Late st Contact Info) Description 07/21/2023 Orders Only PATIENT PORTAL DO NOT DELETE THIS DEPT USED BY [place] [id number] Allergies Active Allergy Reactions Criticality Noted Date Comments Iodine 10/18/2003 Hives Meperidine And Related 10/18/2003 Hives Sulfa Antibiotics 02/04/1999 hives documented as of this encounter (statuses as of 07/21/2023) Medications Medication Sig Dispensed Refills Start Date [...] as of this encounter (statuses as of 07/21/2023) Active Problems Problem Noted Date Diagnosed Date [...] as of this encounter (statuses as of 07/21/2023) Resolved Problems Problem Noted Date Diagnosed Date [...] as of this encounter (statuses as of 07/21/2023) Immunizations Name Administration Dates Next Due COVID-19 mRNA, LNP-s, No Pre serve, 2-Dose Series ([employer]) 10/18/2020,09/26/2020 Pneumococcal Conjugate Vacc, 13 Valent (Prevnar) [...] No 04/28/2022 documented as of this encounter Plan of Treatment Upcoming Encounters Date Type Department Care Team (Latest Contact Info) Description 09/08/2023 10:15 AM EDT Hospital Encounter ENDO [facility], Endoscopy Room [facility] [address] [place] [phone] Lucero Hassan DO 09/08/2023 10:15 AM EDT - 09/08/2023 10:45 AM EDT Surgery ENDO [facility], Endoscopy Room [facility] [address] [phone] Lucero Hassan DO COLONOSCOPY FLEXIBLE PROXIMAL DIAGNOSTIC 10/05/2023 11:00 AM EDT Office Visit General Surgery, [facility] [address] [place] [address] Flavia Garcia MD [address] [facility] [place] [address] 10/11/2023 1:00 PM EDT Office Visit Hematology/Oncology [facility] [place] [address] [facility] [place] [address] Kylah Flores MD [address] [facility] [place] [address] 01/18/2024 3:40 PM EDT Office Visit [facility] [address] [place] [phone] Delmer Cho MD [address] [place], [place] [phone] Scheduled Procedures Name Priority Associated Diagnoses Date/Ti me COLONOSCOPY FLEXIBLE PROXIMAL DIAGNOSTIC Malignant neoplasm of sigmoid colon (HCC) 09/08/2023 10:15 AM EDT Health Maintenance Due Date Last Done Comments Alpha-1 Antitrypsin 1958 Zoster Vaccines (1 of 2) 1990 Depression Screening 12/03/2020 12/04/2019, 10/05/19 15 Albumin/Creatinine Ratio 01/11/2023 022, 01/05/2021, 09/04/2018, Additional history exists CKD PHOS USE SMARTSET 10308 01/11/2023 08/0 06/2021, 11/27/2020, 12/04/2019, Additional history exists FOBT ANNUALLY,AGES 18-90 01/18/2023 022, 01/18/2022, 08/26/2017 (Refused), Additional history exists COVID-19 Vaccine ( season) 2023 10/18/2020, 09/26/2020 GFR 11/30/2023 05/31/2023, 0901/2023, 11/23/2022, Additional history exists TSH 01/13/2024 01/12/2023, 11/11, 07/21/2022, Additional history exists CKD HGB USE SMARTSET 42833 05/31/202405/31, 05/31/2023, 11/23/2022, Additional history exists O2 [...] this encounter Medical Devices Implanted Type Area Clinical Sociologist Device Identifier Shelf Expiration Date Model / Serial / Lot Lens Intraoc 21.5 - [id number] - [id number] Implanted:Qty: 1 on 02/12/2020 by Andrae Chan MD at OR [facility] Left: Eye [employer]OM[employer] 08/10/2024 [id number] / [id number] / Sofport Implanted:Qty: 1 on 02/26/2020 by Andrae Chan MD at OR [facility] Right: Eye 07/13/2024 [id number] / [id number] / [id number] documented as of this encounter Advance Directives Latest Code Status on File Code Status Date Activated Date Inactivated Comments Full Code 04/28/2022 7:58 PM 04/30/2022 5:20 PM Question Answer Comments Discussion of Advance Directives occurred with: Not Discussed due to patient's condition Care Teams Automobile Glass Technician Relationship Specialty Start Date End Date Delmer Cho MD [address] [facility] [place] [address] PCP - General Family Medicine 10/20/17 documented as of this encounter
--- OUTSIDE RECORDS SUMMARY | 2024-01-08 21:28 | External Medical Summary | Summary of Care ---
Author Name Unknown Organization [facility] [address] [facility] [address] Phone [phone] Care Team Providers Care Sql Server Dba Name Role Phone Delmer Cho MD Primary Care Provider [phone] Reason for Visit * Reason Comments Outpatient Testing Encounter Details Date Type Department Care Team (Late st Contact Info) Description 07/13/2023 9:50 AM EST Laboratory Laboratory, [facility] [address] [place] [phone] [facility] [address] [place] [address] Malignant neoplasm of sigmoid colon (HCC) Allergies Active Allergy Reactions Criticality Noted Date [...] mRNA, LNP-s, No Pre serve, 2-Dose Series ([employer]) 10/18/2020,09/26/2020 Pneumococcal Conjugate Vacc, 13 Valent (Prevnar) [...] Description 07/20/2023 3:40 PM EST [facility] [address] [facility] [phone] [facility]mer Cho [facility] [address] [facility] [place] [address] 09/08/2023 10:15 AM EDT Hospital Encounter ENDO [facility], Endoscopy Room [facility] [address] [place] [phone] Lucero Hassan DO 09/08/2023 10:15 AM EDT - 09/08/2023 10:45 AM EDT Surgery ENDO [facility], [facility] [address] [facility] [place] [phone] Lucero Hassan, DO COLONOSCOPY FLEXIBLE PROXIMAL DIAGNOSTIC 10/05/2023 11:00 AM EDT Office Visit General Surgery, [facility] [address] [facility] [place] [address] Flavia Garcia MD [address] [place] [address] 10/11/2023 1:00 PM EDT Office Visit Hematology/Oncology [facility] [address] [place] [address] Kylah Flores MD [address] [place] [address] Pending Results Name Type Priority Associated Diagnoses Date /Time CEA Lab Routine Malignant neoplasm of sigmoid colon (HCC) 07/13/2023 10:11 AM EST Scheduled Procedures Name Priority Associated Diagnoses Date/Ti me COLONOSCOPY FLEXIBLE PROXIMAL DIAGNOSTIC Malignant neoplasm of sigmoid colon (HCC) 09/08/2023 10:15 AM EDT Health Maintenance Due Date Last Done Comments Alpha-1 Antitrypsin 1958 Zoster Vaccines (1 of 2) 1990 Depression Screening 12/03/2020 12/04/2019, 10/05/19 15 Albumin/Creatinine Ratio 01/11/2023 022, 01/05/2021, 09/04/2018, Additional history exists CKD PHOS USE SMARTSET 86101 01/11/2023 08/0 06/2021, 11/27/2020, 12/04/2019, Additional history exists FOBT ANNUALLY,AGES 18-90 01/18/2023 022, 01/18/2022, 08/26/2017 (Refused), Additional history exists COVID-19 Vaccine ( season) 2023 10/18/2020, 09/26/2020 GFR 11/30/2023 05/31/2023, 09/0 01/2023, 11/23/2022, Additional history exists TSH 01/13/2024 01/12/2023, 11/11, 07/21/2022, Additional history exists CKD HGB USE SMARTSET 28617 05/31/202405/31, 05/31/2023, 11/23/2022, Additional history exists O2 [...] this encounter Medical Devices Implanted Type Area Assembler Arranger Device Identifier Shelf Expiration Date Model / Serial / Lot Lens Intraoc 21.5 - [id number] - [id number] Implanted:Qty: 1 on 02/12/2020 by Andrae Chan MD at OR [facility] Left: Eye BA[employer]CH [employer] LOMB 08/10/2024 [id number] / [id number] / Sofport Implanted:Qty: 1 on 02/26/2020 by Andrae Chan MD at OR [facility] Right: Eye 07/13/2024 [id number] / [id number] / [id number] documented as of this encounter Visit Diagnoses Diagnosis Malignant neoplasm of sigmoid colon (HCC) Malignant neoplasm of sigmoid colon Malignant neoplasm of sigmoid colon (HCC) Malignant neoplasm of sigmoid colon documented in this encounter Advance Directives Latest Code Status on File Code Status Date Activated Date Inactivated Comments Full Code 04/28/2022 7:58 PM 04/30/2022 5:20 PM Question Answer Comments Discussion of Advance Directives occurred with: Not Discussed due to patient's condition Care Teams Sql Server Dba Relationship Specialty Start Date End Date Delmer Cho MD [address] [place] [address] PCP - General Family Medicine 10/20/17 documented as of this encounter
[2024-01-08] MEDS: ADENOSINE IV SOLN 3 MG/ML 2 ML VIAL IV ONE ×2 (21:46→22:13)
[2024-01-08 21:50] LABS: iSTAT Creatinine 1.9 mg/dl (0.6-1.3); iSTAT Hemoglobin 14.3 g/dl (14.0-18.0); iSTAT Ionized Calcium 1.19 mmol/l (1.12-1.32); iSTAT Potassium 4.1 mmol/L (3.3-5.0)
[2024-01-08] MEDS: AMIODARONE 150MG / 100ML D5W IV ONE (21:53)
[2024-01-08] MEDS: LORazepam 1 MG/1 ML SYR ED Inj Use ONE ×2 (21:56→22:05)
[2024-01-08 22:01] LABS: Basophils # (auto) 0.06 K/uL (0.00-0.20); Basophils % (auto) 0.7 %; Eosinophils # (auto) 0.17 K/uL (0.00-0.50); Eosinophils % (auto) 1.9 %; Hematocrit (blood only) 42.3 % (42.0-52.0); Hemoglobin 14.1 g/dl (14.0-18.0); Immature Granulocytes # (auto) 0.02 K/uL (0.01-0.20); Immature Granulocytes % (auto) 0.2 %; Lymphocytes # (auto) 2.64 K/uL (1.20-3.40); Mean Corpuscular Hemoglobin 28.7 pg (25.0-34.0); Mean Corpuscular Hgb Conc 33.3 g/dL (32.0-36.0); Mean Platelet Volume 11.1 fL (9.4-12.4); Monocytes # (auto) 1.34 K/uL (0.11-0.59); Monocytes % (auto) 14.7 %; Neutrophils # (auto) 4.88 K/uL (1.40-6.50); Neutrophils % (auto) 53.5 %; Platelet Count 193 K/uL (130-400); RDW Coefficient of Variation 14.2 % (11.5-14.5); Red Blood Count 4.92 M/uL (4.70-6.10); White Blood Count 9.11 K/ul (4.8-10.8)
[2024-01-08] MEDS: fentaNYL citrate PF 100 MCG/2 ML VIAL ONE (22:06)
[2024-01-08] MEDS ORDERED: 0.2 MICRON FILTER SET 1 EACH IV ONE (22:13)
[2024-01-08] MEDS: SODIUM CHLORIDE 0.9% 1,000 ML IV STA (22:14)
[2024-01-08 22:16] LABS: Albumin Globulin Ratio 1.6 (0.9-2); Albumin Level 4.4 gm/dl (3.4-5.0); BUN Creatinine Ratio 17.6 (10-20); Bilirubin,Total 0.7 mg/dl (0.2-1.0); Calcium 10.2 mg/dl (8.6-10.3); Creatinine Clr Calc Pharmacy 32.5 ml/min; Est GFR (African American) 42.3 ml/min; Est GFR (Non-African American) 36.5 ml/min; Globulin 2.8 gm/dl (2.5-4.0); Potassium 4.2 mmol/L (3.5-5.1); Total Protein 7.2 gm/dl (6.0-8.3)
[2024-01-08] MEDS: AMIODARONE / D5W 360 MG/200 ML BAG IV ONE (22:25)
[2024-01-08 22:28] LABS: Troponin I High Sensitivity 277.8 pg/ml (0-20)
[2024-01-08 22:30] LABS: INR 1.1 (0.9-1.1); Partial Thromboplastin Time 26 Seconds (21-31); Prothrombin Time 11.5 Seconds (9.0-12.0)
[2024-01-08 22:32] LABS: Thyroid Stimulating Hormone 12.118 uIu/ml (0.300-4.500)
[2024-01-08 23:08] LABS: T4 Free Thyroxine 0.88 ng/dl (0.61-1.60)
[2024-01-08 23:15] LABS: Estimated Average Glucose 146 mg/dl; Hemoglobin A1C 6.7 % (4.5-5.6)
--- NOTE | 2024-01-08 23:30 | Emergency Department Note ---
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 He does not feel like his heart is racing. The nurses came and got me to see him as he had a significant tachycardia and 187. He does not feel tachycardic he does not feel lightheaded or dizzy no fever chills or cough no fall or trauma no blood or melena in his stool. He denies any history of significant arrhythmias although he has had heart attacks before and COPD Home Medications Medication Instructions Recorded Confirmed Type Finasteride (Proscar) 5 mg PO QAM ##0 07/16/08 History ASPIRIN (ASPIRIN CHEWABLE) 81 mg PO QPM #0 tabs 05/17/14 History DOXAZOSIN MESYLATE 8 mg PO QAM ##0 05/17/14 History LEVOTHYROXINE SODIUM (SYNTHROID) 125 mcg PO QAM #0 tabs 05/17/14 History NITROGLYCERIN (NITROSTAT) 0.4 mg UT UD PRN Chest Pain ##0 05/17/14 History COENZYME Q10 (UBIDECARENONE) (CO 200 mg PO QD@08 #0 caps 09/09/14 History Q-10) FUROSEMIDE (LASIX) 20 mg PO MWF #0 tabs 09/09/14 History LANSOPRAZOLE (PREVACID) 30 mg PO DAILYBB #0 caps 10/05/15 History ATORVASTATIN (LIPITOR) 80 mg PO QAM ##0 12/24/15 History Metoprolol Succ (Toprol Xl) 25 mg PO DAILY #30 tabs 12/24/15 History (Toprol-Xl) Omeprazole (Prilosec) 40 mg PO DAILY #0 caps 01/04/16 History Allergies Allergy/AdvReac Type Severity Reaction Status Date / Time iodine Allergy Intermediate RASH Verified 01/04/16 21:59 meperidine Allergy Intermediate RASH Verified 01/04/16 21:59 Sulfa (Sulfonamide Allergy Intermediate hives Verified 01/04/16 21:59 Antibiotics) Past Med/Surg History Problem List (Updated 01/09/24 @ 00:42 by Mono Perez MD) Lab test negative for COVID-19 virus (Acute) SOB (shortness of breath) (Acute) Ventricular tachycardia (Acute) Chest pain (Acute) Kidney disease, chronic, stage III (GFR 30-59 ml/min) (Chronic) Acute inferior myocardial infarction (Acute 05/17/14) Acute myocardial infarction (Acute) Bradycardia (Acute) Hypotension (Acute) Obstructed Cantu catheter (Acute) Social History Smoking Status: Former smoker Feels Safe at Home: Yes Review of Systems A total of 10 systems reviewed and were otherwise negative Physical Exam Vital Signs Vital Signs - 24 hr 01/08/24 21:22 01/08/24 21:28 01/08/24 21:30 Temperature 36.3 C L Temperature Source Temporal Artery Scan Pulse Rate 183 H 186 H 186 H Pulse Rate [Left Radial] Pulse Rhythm [Left Radial] Pulse Strength [Left Radial] Respiratory Rate 16 16 20 Respiratory Effort / Characteristics Non-Labored Spontaneous Respiratory Depth Normal Respiratory Pattern Blood Pressure 90/60 L 97/73 L 111/50 L Blood Pressure [Right Arm] Blood Pressure Mean 70 81 70 Blood Pressure Mean [Right Arm] Blood Pressure Position [Right Arm] Pulse Oximetry 96 Oxygen Delivery Method Room Air Oxygen Flow Rate Sepsis Recent Fever Within 48 Hours No Sepsis New/Unexplained Change in Mental Status N/A Sepsis Action Taken by Nursing No Action Required 01/08/24 21:31 01/08/24 21:36 01/08/24 21:41 Temperature Temperature Source Pulse Rate 187 H 186 H Pulse Rate [Left Radial] 186 H Pulse Rhythm [Left Radial] Regular Pulse Strength [Left Radial] Normal Respiratory Rate 18 20 Respiratory Effort / Characteristics Non-Labored Spontaneous Respiratory Depth Normal Respiratory Pattern Regular Blood Pressure 101/81 Blood Pressure [Right Arm] 111/50 L Blood Pressure Mean 87 Blood Pressure Mean [Right Arm] 70 Blood Pressure Position [Right Arm] Pulse Oximetry 95 Oxygen Delivery Method Oxygen Flow Rate Sepsis Recent Fever Within 48 Hours Sepsis New/Unexplained Change in Mental Status Sepsis Action Taken by Nursing 01/08/24 21:45 01/08/24 21:58 01/08/24 21:59 Temperature Temperature Source Pulse Rate 186 H Pulse Rate [Left Radial] 182 H 183 H Pulse Rhythm [Left Radial] Regular Regular Pulse Strength [Left Radial] Normal Normal Respiratory Rate 20 16 20 Respiratory Effort / Characteristics Non-Labored Spontaneous Non-Labored Spontaneous Respiratory Depth Normal Normal Respiratory Pattern Regular Regular Blood Pressure 93/75 L Blood Pressure [Right Arm] 90/71 L 90/71 L Blood Pressure Mean 81 Blood Pressure Mean [Right Arm] 77 77 Blood Pressure Position [Right Arm] Pulse Oximetry 94 95 95 Oxygen Delivery Method Room Air Room Air Room Air Oxygen Flow Rate Sepsis Recent Fever Within 48 Hours Sepsis New/Unexplained Change in Mental Status Sepsis Action Taken by Nursing 01/08/24 22:00 01/08/24 22:09 01/08/24 22:23 Temperature Temperature Source Pulse Rate 68 59 L Pulse Rate [Left Radial] 183 H Pulse Rhythm [Left Radial] Regular Pulse Strength [Left Radial] Normal Respiratory Rate 16 Respiratory Effort / Characteristics Non-Labored Spontaneous Respiratory Depth Normal Respiratory Pattern Regular Blood Pressure Blood Pressure [Right Arm] 86/71 L Blood Pressure Mean Blood Pressure Mean [Right Arm] 76 Blood Pressure Position [Right Arm] Pulse Oximetry 95 Oxygen Delivery Method Room Air Oxygen Flow Rate Sepsis Recent Fever Within 48 Hours Sepsis New/Unexplained Change in Mental Status Sepsis Action Taken by Nursing 01/08/24 22:30 01/08/24 22:35 01/08/24 22:45 Temperature Temperature Source Pulse Rate Pulse Rate [Left Radial] 51 L 57 L 56 L Pulse Rhythm [Left Radial] Irregular Irregular Irregular Pulse Strength [Left Radial] Normal Normal Normal Respiratory Rate 16 16 16 Respiratory Effort / Characteristics Non-Labored Spontaneous Non-Labored Spontaneous Non-Labored Spontaneous Respiratory Depth Normal Normal Normal Respiratory Pattern Regular Regular Regular Blood Pressure Blood Pressure [Right Arm] 87/51 L 88/63 L 91/54 L Blood Pressure Mean Blood Pressure Mean [Right Arm] 63 71 66 Blood Pressure Position [Right Arm] Lying Lying Pulse Oximetry 95 97 97 Oxygen Delivery Method Room Air Nasal Cannula Nasal Cannula Oxygen Flow Rate 2 Sepsis Recent Fever Within 48 Hours Sepsis New/Unexplained Change in Mental Status Sepsis Action Taken by Nursing 01/08/24 22:46 01/08/24 22:51 01/08/24 22:56 Temperature Temperature Source Pulse Rate Pulse Rate [Left Radial] 56 L 56 L 63 Pulse Rhythm [Left Radial] Irregular Irregular Irregular Pulse Strength [Left Radial] Normal Normal Normal Respiratory Rate 14 16 16 Respiratory Effort / Characteristics Non-Labored Spontaneous Non-Labored Spontaneous Non-Labored Respiratory Depth Normal Normal Normal Respiratory Pattern Regular Regular Regular Blood Pressure Blood Pressure [Right Arm] 91/54 L 80/60 L 107/69 Blood Pressure Mean Blood Pressure Mean [Right Arm] 66 66 81 Blood Pressure Position [Right Arm] Lying Pulse Oximetry 97 97 95 Oxygen Delivery Method Room Air Nasal Cannula Nasal Cannula Oxygen Flow Rate Sepsis Recent Fever Within 48 Hours Sepsis New/Unexplained Change in Mental Status Sepsis Action Taken by Nursing 01/08/24 23:50 Temperature Temperature Source Pulse Rate Pulse Rate [Left Radial] 53 L Pulse Rhythm [Left Radial] Irregular Pulse Strength [Left Radial] Normal Respiratory Rate 16 Respiratory Effort / Characteristics Non-Labored Respiratory Depth Normal Respiratory Pattern Regular Blood Pressure Blood Pressure [Right Arm] 105/68 Blood Pressure Mean Blood Pressure Mean [Right Arm] 80 Blood Pressure Position [Right Arm] Pulse Oximetry 98 Oxygen Delivery Method Oxymask Oxygen Flow Rate 2 Sepsis Recent Fever Within 48 Hours Sepsis New/Unexplained Change in Mental Status Sepsis Action Taken by Nursing General: Well developed well nourished [id number] older male who appears in no acute distress, breathing comfortably on room air. Normal speech HEENT: Normal cephalic atraumatic. Pupils are equal round and reactive to light. Extraocular movements are intact. Oropharynx is pink with moist mucous membranes. No swelling of the mouth lips or tongue. Neck: Supple with a midline trachea. No meningeal signs or stiffness, no JVD or bruits. No Stridor. Chest: Clear to auscultation bilaterally. No wheezes or rhonchi. No increased work of breathing. Heart: Significantly tachycardic in the 180s without murmurs or gallops. Abdomen: Soft nontender, nondistended without rebound guarding or rigidity. Extremities: No cyanosis clubbing or edema. No calf tenderness or assymetry Spine/Back. Non tender to palpation. No CVA tenderness Skin: Good turgor without rashes. Neurologic exam: Cranial nerves two through 12 are intact. Motor and sensation are intact and symmetrical throughout. Procedures Free Text Procedures Indication: Ventricular tachycardia Due to the patient's ventricular tachycardia with low blood pressure and instability he was emergently cardioverted. Due to his low blood pressure we did use IV Ativan and IV fentanyl for some anxiolytic and pain and sedation. We explained the procedure to the patient and he freely consented. The biphasic defibrillator was set to 100 joules of energy and synched. After confirmation of sedation and "all clear" safety check the synchronized shock was delivered. This resulted in successful conversion of the dysrhythmia back into sinus rhythm. See nursing notes for dosages and times. There were no complications and the patient recovered uneventfully from the procedure. Course Administered Medications Amiodarone HCl/Dextrose (Nexterone / D5w) 360 mg in 200 mls @ 33.333 mls/hr IV ONE ONE; Protocol Stop: 01/09/24 04:12 Last Admin: 01/08/24 22:25 Dose: 1 mg/min, 33.3 mls/hr Documented By: JOSELYN Co-signed By: SAMANTHA Discontinued Medications Adenosine (Adenosine Iv Soln 3 Mg/Ml 2 Ml Vial) Confirm Administered Dose 18 mg IV .STK-MED ONE Stop: 01/08/24 21:35 Last Admin: 01/08/24 22:13 Dose: 18 mg Documented By: JOSELYN Adenosine (Adenosine Iv Soln 3 Mg/Ml 2 Ml Vial) Confirm Administered Dose 12 mg IV .STK-MED ONE Stop: 01/08/24 21:46 Last Admin: 01/08/24 21:46 Dose: 12 mg Documented By: JOSELYN Amiodarone HCl/Dextrose (Amiodarone 150mg / 100ml D5w) Confirm Administered Dose 150 mg IV .STK-MED ONE Stop: 01/08/24 21:51 Last Admin: 01/08/24 21:53 Dose: 150 mg Documented By: JOSELYN Co-signed By: SAMANTHA Fentanyl Citrate (Fentanyl Citrate Pf 100 Mcg/2 Ml Vial) Confirm Administered Dose 100 mcg .ROUTE .STK-MED ONE Stop: 01/08/24 22:03 Last Admin: 01/08/24 22:06 Dose: 100 mcg Documented By: JOSELYN Sodium Chloride (Nss) 1,000 mls @ 999 mls/hr IV .Q1H1M STA Stop: 01/08/24 22:45 Last Infusion: 01/09/24 00:06 Dose: Infused Documented By: Admin: 01/08/24 22:14 Dose: 999 mls/hr Documented By: JOSELYN Ampicillin Sodium/Sulbactam Sodium 3,000 mg/ Sodium Chloride 100 mls @ 200 mls/hr IV NOW STA Stop: 01/09/24 00:01 Last Admin: 01/08/24 23:58 Dose: 200 mls/hr Documented By: JOSELYN Lorazepam (Lorazepam 1 Mg/1 Ml Syr Ed Inj Use) Confirm Administered Dose 1 mg .ROUTE .STK-MED ONE Stop: 01/08/24 21:56 Last Admin: 01/08/24 21:56 Dose: 0.5 mg Documented By: JOSELYN Lorazepam (Lorazepam 1 Mg/1 Ml Syr Ed Inj Use) Confirm Administered Dose 2 mg .ROUTE .STK-MED ONE Stop: 01/08/24 22:03 Last Admin: 01/08/24 22:05 Dose: 1 mg Documented By: JOSELYN Critical Care Time Critical Care Time: Yes Total Critical Care Time: 60 Due to the patient's unstable vital signs with ventricular tachycardia need for multiple IV medications constant monitoring frequent reassessment and ultimately cardioversion and sedation, I have personally spent greater than 60 minutes of critical care time in the direct management of this patient. This includes bedside care, interpretation of diagnostic studies, and testing, discussion with consultants, patient, and family members, and other required patient management activities. This 60 minutes is in excess of all separately billable procedures. Medical Decision Making Differential Diagnosis V. tach, SVT, A-fib, acute coronary syndrome, electrolyte or metabolic abnormality, thyroid disorder, anemia Medical Records Attestation: I reviewed the patient's medical records. Home Medications Current Medication List: was personally reviewed by [place] Laboratory Data Attestation: I reviewed the patient's lab results. 01/08/24 21:32 01/08/24 21:32 Lab Results 01/08/24 01/08/24 01/08/24 Range/Units 21:32 21:38 23:40 WBC 9.11 (4.8-10.8) K/ul RBC 4.92 (4.70-6.10) M/uL Hgb 14.1 (14.0-18.0) g/dl POC Hgb 14.3 (14.0-18.0) g/dl Hct 42.3 (42.0-52.0) % POC Hct 42 (42-52) % MCV 86.0 (80.0-100.0) fL MCH 28.7 (25.0-34.0) pg MCHC 33.3 (32.0-36.0) g/dL RDW Std Deviation 44.0 (36.4-46.3) fL RDW Coeff of Adam 14.2 (11.5-14.5) % Plt Count 193 (130-400) K/uL MPV 11.1 (9.4-12.4) fL Immature Gran % (Auto) 0.2 % Neut % (Auto) 53.5 % Lymph % (Auto) 29.0 % [place] % (Auto) 14.7 % Eos % (Auto) 1.9 % Baso % (Auto) 0.7 % Neut # (Auto) 4.88 (1.40-6.50) K/uL Lymph # (Auto) 2.64 (1.20-3.40) K/uL [place] # (Auto) 1.34 H (0.11-0.59) K/uL Eos # (Auto) 0.17 (0.00-0.50) K/uL Baso # (Auto) 0.06 (0.00-0.20) K/uL Immature Gran # (Auto) 0.02 (0.01-0.20) K/uL PT 11.5 (9.0-12.0) Seconds INR 1.1 (0.9-1.1) APTT 26 (21-31) Seconds PTT Ratio 1.0 D-Dimer 310 (0-500) ug/L FEU POC Sodium 139 (135-144) mmol/L Sodium 137 (136-145) mmol/L POC Potassium 4.1 (3.3-5.0) mmol/L Potassium 4.2 (3.5-5.1) mmol/L POC Chloride 104 (101-112) mmol/L Chloride 103 (98-107) mmol/L Carbon Dioxide 25 (21-32) mmol/L POC Total CO2 21 L (24-31) mmol/L Anion Gap 9 (3-11) POC Anion Gap 19.0 (16-25) mmol/L POC BUN 30 H (7-18) mg/dl BUN 30 H (6-23) mg/dl Creatinine 1.70 H (0.6-1.4) mg/dl POC Creatinine 1.9 H (0.6-1.3) mg/dl Est Cr Clr Drug Dosing 32.5 ml/min Est GFR ( Amer) 42.3 ml/min Est GFR (Non-Af Amer) 36.5 ml/min BUN/Creatinine Ratio 17.6 (10-20) Glucose 128 H (70-99(Fasting)) mg/dl POC Glucose (other) 126 H (70-99) mg/dl Estimat Average Glucose 146 mg/dl Hemoglobin A1c 6.7 H (4.5-5.6) % Calcium 10.2 (8.6-10.3) mg/dl POC Ioniz Calcium Suzanna 1.19 (1.12-1.32) mmol/l Magnesium 2.0 (1.7-2.4) mg/dl Total Bilirubin 0.7 (0.2-1.0) mg/dl AST 30 (13-39) U/L ALT 19 (7-52) U/L Alkaline Phosphatase 71 (34-104) U/L Troponin I High Sens 277.8 H* (0-20) pg/ml Total Protein 7.2 (6.0-8.3) gm/dl Albumin 4.4 (3.4-5.0) gm/dl Globulin 2.8 (2.5-4.0) gm/dl Albumin/Globulin Ratio 1.6 (0.9-2) Lipase 13 (11-82) U/L TSH 12.118 H (0.300-4.500) uIu/ml Free T4 0.88 (0.61-1.60) ng/dl SARS-CoV-2 (PCR) NEGATIVE (Negative) Influenza Type A (PCR) Negative (Neg) Influenza Type B (PCR) Negative (Neg) RSV (RT-PCR) Negative (Neg) 01/08/24 Range/Units 23:45 WBC (4.8-10.8) K/ul RBC (4.70-6.10) M/uL Hgb (14.0-18.0) g/dl POC Hgb (14.0-18.0) g/dl Hct (42.0-52.0) % POC Hct (42-52) % MCV (80.0-100.0) fL MCH (25.0-34.0) pg MCHC (32.0-36.0) g/dL RDW Std Deviation (36.4-46.3) fL RDW Coeff of Adam (11.5-14.5) % Plt Count (130-400) K/uL MPV (9.4-12.4) fL Immature Gran % (Auto) % Neut % (Auto) % Lymph % (Auto) % [place] % (Auto) % Eos % (Auto) % Baso % (Auto) % Neut # (Auto) (1.40-6.50) K/uL Lymph # (Auto) (1.20-3.40) K/uL [place] # (Auto) (0.11-0.59) K/uL Eos # (Auto) (0.00-0.50) K/uL Baso # (Auto) (0.00-0.20) K/uL Immature Gran # (Auto) (0.01-0.20) K/uL PT (9.0-12.0) Seconds INR (0.9-1.1) APTT (21-31) Seconds PTT Ratio D-Dimer (0-500) ug/L FEU POC Sodium (135-144) mmol/L Sodium (136-145) mmol/L POC Potassium (3.3-5.0) mmol/L Potassium (3.5-5.1) mmol/L POC Chloride (101-112) mmol/L Chloride (98-107) mmol/L Carbon Dioxide (21-32) mmol/L POC Total CO2 (24-31) mmol/L Anion Gap (3-11) POC Anion Gap (16-25) mmol/L POC BUN (7-18) mg/dl BUN (6-23) mg/dl Creatinine (0.6-1.4) mg/dl POC Creatinine (0.6-1.3) mg/dl Est Cr Clr Drug Dosing ml/min Est GFR ( Amer) ml/min Est GFR (Non-Af Amer) ml/min BUN/Creatinine Ratio (10-20) Glucose (70-99(Fasting)) mg/dl POC Glucose (other) (70-99) mg/dl Estimat Average Glucose mg/dl Hemoglobin A1c (4.5-5.6) % Calcium (8.6-10.3) mg/dl POC Ioniz Calcium Suzanna (1.12-1.32) mmol/l Magnesium (1.7-2.4) mg/dl Total Bilirubin (0.2-1.0) mg/dl AST (13-39) U/L ALT (7-52) U/L Alkaline Phosphatase (34-104) U/L Troponin I High Sens 252.2 H* (0-20) pg/ml Total Protein (6.0-8.3) gm/dl Albumin (3.4-5.0) gm/dl Globulin (2.5-4.0) gm/dl Albumin/Globulin Ratio (0.9-2) Lipase (11-82) U/L TSH (0.300-4.500) uIu/ml Free T4 (0.61-1.60) ng/dl SARS-CoV-2 (PCR) (Negative) Influenza Type A (PCR) (Neg) Influenza Type B (PCR) (Neg) RSV (RT-PCR) (Neg) Imaging Data Attestation: I personally reviewed and interpreted this imaging study as follows: My Impression: Chest x-raythere is mild increased interstitial markings I believe he does have a degree of CHF suspected. No focal infiltrates or pneumothorax ECG Data Attestation: I personally reviewed and interpreted this ECG as follows: Indication: + chest pain and + SOB/dyspnea Rate (beats per minute): 187 Rhythm: + v-tach ECG Intervals/blocks: + Prolonged QT ECG Fork: + Normal ECG ST segments: + Nonspecific ST abnormalities ECG Findings: no PACs or no PVCs Comparison ECG Date: from (11/23/2022) Change: the following changes noted (Wide-complex tachycardia with suspected V. tach is now replaced normal sinus. On his old EKG his QRS duration was 96) Additional Comments: EKG #2: Wide-complex tachycardia likely consistent with V. tach no change compared EKG #1 EKG #3: Normal sinus rhythm with bigeminy with PVCs. No acute ST segment elevations to suggest STEMI MDM Narrative This patient comes in as described above. The nurses called me to see him as he was tachycardic with chest pain he is not diaphoretic and looks well. His initial blood pressure was just above 100 although it would drop down in the 90s and even high 80s at 1 point. His EKG shows QRS is mildly widened. His rate is high in the 180s. The differential for his EKG would be V. tach versus SVT with aberrancy versus a flutter with a Garces C. His regular. Initially we did try adenosine given the fact that it could be SVT 6 mg IV was tried as well as 12 mg x 2 without any change in EKG he did feel symptomatic with the adenosine briefly but no change on the EKG. In light of this we moved to amiodarone given 150 mg bolus over 10 minutes and no change his blood pressure was running in the 80s and I was worried about the stress on him and him being somewhat unstable at this point. In light of this we elected to cardiovert him Dr. Chester did assist me. The patient had received Ativan IV as well as fentanyl prior to cardioversion. He tolerated this well and will use 100 J synchronized. The patient converted to normal sinus rhythm with bigeminy. He felt much better he has no chest pain or shortness of breath. He is sleepy from the sedation but wakes up and has no complaints with the sedation his blood pressure was somewhat low in the 90s but what he looks well. He may have a degree of CHF so I limited the IV fluids. His troponin is elevated but he has no changes to get STEMI and no ongoing chest pain was likely demand ischemia from the ongoing tachycardia which we have corrected. The patient is doing much better than when he came in and I did also start him on amiodarone drip. I discussed the case with the [facility] outpatient psychiatrist on-call, , she agreed with the plan. I discussed case with Dr. Sosa who will admit the patient . I have discussed the care with the family multiple times. Continuous cardiac monitoring: Orders placed in EMR for continuous phototypesetting equipment monitor the patient is a regular tachycardia which has mildly widened complex in the 180 suspected for V. tach Impression & Plan Ventricular tachycardia, Chest pain, SOB (shortness of breath), Lab test negative for COVID-19 virus Discharge Plan Visit Data Chief Complaint: Chest Pain Stated Complaint: CHEST PAIN ED Provider: oMno Perez Discharge Problem: Ventricular tachycardia, Chest pain, SOB (shortness of breath), Lab test negative for COVID-19 virus Forms Stand Alone Forms: [facility] Prescriptions Prescriptions: No Action Finasteride (Proscar) 5 MG tablet 5 mg PO QAM Qty: 0 ASPIRIN (ASPIRIN CHEWABLE) 81 MG CHEWABLE TAB 81 mg PO QPM Qty: 0 DOXAZOSIN MESYLATE 8 MG tablet 8 mg PO QAM Qty: 0 LEVOTHYROXINE SODIUM (SYNTHROID) 125 MCG tablet 125 mcg PO QAM Qty: 0 NITROGLYCERIN (NITROSTAT) 0.4 MG SUB 0.4 mg UT UD PRN (Reason: Chest Pain) Qty: 0 COENZYME Q10 (UBIDECARENONE) (CO Q-10) 150 MG capsule 200 mg PO QD@08 Qty: 0 FUROSEMIDE (LASIX) 20 MG tablet 20 mg PO MWF Qty: 0 LANSOPRAZOLE (PREVACID) 30 MG capsule 30 mg PO DAILYBB Qty: 0 Metoprolol Succ (Toprol Xl) (Toprol-Xl) 25 MG [id number] 25 mg PO DAILY Qty: 30 ATORVASTATIN (LIPITOR) 80 MG tablet 80 mg PO QAM Qty: 0 Omeprazole (Prilosec) 40 MG CONTR REL CAP 40 mg PO DAILY Qty: 0 Referrals Referrals: Donte Looney MD [Primary Care Provider] - Discharge Problem: Chest pain Qualifiers: Chest pain type: precordial pain Qualified Code(s): R07.2 - Precordial pain
--- NOTE | 2024-01-08 23:31 | History & Physical Report ---
Date of Service January 08, 2024 Assessment & Plan (1) Ventricular tachycardia: Plan: Status post cardioversion at the ER for unstable tachycardia Currently on amiodarone infusion as per ED provider discussion with [facility] funeral director/embalmer/owner on-call Troponin elevation secondary to above Possible aspiration pneumonitis, no sepsis for now No overt wheezing to indicate COPD exacerbation ARF on CKD secondary to illness chronic systolic heart failure secondary to ischemic cardiomyopathy, patient on the dry side hx CAD hypertension, borderline BP at the ER hyperlipidemia on statin Rx history of upper extremity DVT status post Coumadin New diagnosis DM, hemoglobin A1c noted to be 6.8 tonight hypothyroidism, TSH elevated with normal free T4 colon cancer status post surgery past tobacco abuse Admit to PCU Continue amiodarone for now TTE, Cardiology consult Re: [place] (ED provider already in touch with Dr. Cain.) Unasyn followed by Augmentin for possible aspiration pneumonitis, STAFF RESEARCH SCIENTIST eval, aspiration precautions Baseline UA, monitor creatinine response to IVF, hold home diuretic until creatinine back to baseline, renal ultrasound if without improvement in kidney function Recheck TSH next month ISS BG goal 1 10-1 40, carb count coverage, DM education DVT prophylaxis. Heparin subcu Full code Patient grandson requesting updates providers. Mr. Yariel lawson, contact #[phone]. Text document was generated using Qumu voice recognition software. It may contain grammatical or spelling errors. Kindly contact undersigned for clarification of any documentation item in question. History of Present Illness Chief Complaint: Chest pain Primary Care Provider: Dr. Cho History obtained from patient, family, and records. Medical history significant for chronic systolic heart failure secondary to ischemic cardiomyopathy (EF 40-44%, TTE 2016), CAD, hypertension, hyperlipidemia, COPD, history of upper extremity DVT status post Coumadin, prediabetes, hypothyroidism, CRI (baseline creatinine 1.5), colon cancer status post surgery, GERD, BPH, urolithiasis, past tobacco abuse. Last confinement May 2014 inferior wall SC. 100% occlusion of RCA on cardiac cath. Failed attempt at thrombectomy. Medical management recommended. Gross hematuria noted during confinement. 1 week history of junky cough symptoms. Not sure about sick contacts as patient accompanies to doctors' appointments as per family. Patient admits to worsening cough at night lying down and with water/food intake. 2 days ago, patient noted achy substernal pain without palpitations. Some shortness of breath. Chest pain different from heart attack because it did not go to the arms as per family. 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 Heart rate 180s upon arrival at the ER. Wide-complex tachycardia on EKG as per ER provider. No response to multiple doses of adenosine. SBP later noted to be 80s. Patient subsequently cardioverted. Patient currently NSR. IV amiodarone initiated at the ER. 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 Allergies Allergy/AdvReac Type Severity Reaction Status Date / Time iodine Allergy Intermediate RASH Verified 01/09/24 01:08 meperidine Allergy Intermediate RASH Verified 01/09/24 01:08 Sulfa (Sulfonamide Allergy Intermediate hives Verified 01/09/24 01:08 Antibiotics) Home Medications Medication Instructions Recorded Confirmed Type acetaminophen 500 mg tablet 500 mg PO Q8 PRN Pain 01/09/24 01/09/24 History aspirin 81 mg tablet 81 mg PO HS 01/09/24 01/09/24 History atorvastatin 80 mg tablet 80 mg PO DAILY 01/09/24 01/09/24 History diclofenac sodium 1 % topical gel 2 g topical QID PRN Pain 01/09/24 01/09/24 History diphenhydramine HCl 25 mg capsule 25 mg PO PRN Allergic Reaction 01/09/24 History (Benadryl) doxazosin 8 mg tablet 8 mg PO HS 01/09/24 01/09/24 History famotidine 20 mg tablet 20 mg PO DAILY 01/09/24 01/09/24 History finasteride 5 mg tablet 5 mg PO DAILY 01/09/24 01/09/24 History furosemide 20 mg tablet 20 mg PO DAILY 01/09/24 01/09/24 History levothyroxine 125 mcg tablet 125 mcg PO DAILYBB 01/09/24 01/09/24 History metoprolol succinate 25 mg 25 mg PO DAILY 01/09/24 01/09/24 History tablet,extended release 24 hr nitroglycerin 0.4 mg sublingual 0.4 mg sublingual TID PRN Chest 01/09/24 01/09/24 History tablet Pain omeprazole 20 mg capsule,delayed 20 mg PO DAILY 01/09/24 01/09/24 History release prednisone 50 mg tablet 50 mg PO PREOP PRN Allergic 01/09/24 01/09/24 History Reaction triamcinolone acetonide 0.1 % 1 applic topical BID PRN Pain 01/09/24 01/09/24 Hi story topical cream Past Med/Surg History Problem List (Updated 01/09/24 @ 00:42 by Mono Perez MD) Lab test negative for COVID-19 virus (Acute) SOB (shortness of breath) (Acute) Ventricular tachycardia (Acute) Chest pain (Acute) Kidney disease, chronic, stage III (GFR 30-59 ml/min) (Chronic) Acute inferior myocardial infarction (Acute 05/17/14) Acute myocardial infarction (Acute) Bradycardia (Acute) Hypotension (Acute) Obstructed Cantu catheter (Acute) Social History Smoking Status: Former smoker Do You Dip or Chew Tobacco: No; Hx Alcohol Use: Yes Hx Substance Use: No Preferred Language: Georgian Communication Ability: Effective 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 Required: No Beliefs That Will Affect Care: None Current Living Situation: Spouse Feels Safe at Home: Yes Safety Concerns: Feels Safe At This Time Assistive Devices: Glasses Review of Systems Review of Systems: As per HPI, all other systems reviewed and negative Physical Exam Physical Exam: GENERAL: Comfortable, slightly hard of hearing, no respiratory distress SKIN: Normal color, warm HEENT: [place] palpebral conjunctivae, no ptosis, dry buccal mucosa NECK : Supple, no tenderness CHEST : Decreased breath sounds, no tenderness HEART : Bradycardic, no obvious murmurs ABDOMEN: Some distention, nontender EXTREMITIES : No LE swelling/tenderness, no other conspicuous deformities noted NEUROLOGIC : Coherent, no facial asymmetry, slightly hard of hearing, no other gross focality Results & Data Results & Data Vital Signs (Past 12 Hours) Vital Signs Temp Pulse Pulse Resp BP BP Pulse Ox 01/08/24 22:56 63 16 107/69 95 01/08/24 22:51 56 L 16 80/60 L 97 01/08/24 22:46 56 L 14 91/54 L 97 01/08/24 22:45 56 L 16 91/54 L 97 01/08/24 22:35 57 L 16 88/63 L 97 01/08/24 22:30 51 L 16 87/51 L 95 01/08/24 22:23 59 L 01/08/24 22:09 68 01/08/24 22:00 183 H 16 86/71 L 95 01/08/24 21:59 183 H 20 90/71 L 95 01/08/24 21:58 182 H 16 90/71 L 95 01/08/24 21:45 186 H 20 93/75 L 94 01/08/24 21:41 186 H 20 101/81 95 01/08/24 21:36 187 H 01/08/24 21:31 186 H 18 111/50 L 01/08/24 21:30 186 H 20 111/50 L 01/08/24 21:28 186 H 16 97/73 L 01/08/24 21:22 36.3 C L 183 H 16 90/60 L 96 O2 Del Method O2 Flow Rate 01/08/24 22:56 Nasal Cannula 01/08/24 22:51 Nasal Cannula 01/08/24 22:46 Room Air 01/08/24 22:45 Nasal Cannula 01/08/24 22:35 Nasal Cannula 2 01/08/24 22:30 Room Air 01/08/24 22:23 01/08/24 22:09 01/08/24 22:00 Room Air 01/08/24 21:59 Room Air 01/08/24 21:58 Room Air 01/08/24 21:45 Room Air 01/08/24 21:41 01/08/24 21:36 01/08/24 21:31 01/08/24 21:30 01/08/24 21:28 01/08/24 21:22 Room Air Laboratory Results Laboratory Results WBC 9.11 K/ul (4.8-10.8) 01/08/24 21:32 RBC 4.92 M/uL (4.70-6.10) 01/08/24 21:32 Hgb 14.1 g/dl (14.0-18.0) 01/08/24 21:32 POC Hgb 14.3 g/dl (14.0-18.0) 01/08/24 21:38 Hct 42.3 % (42.0-52.0) 01/08/24 21:32 POC Hct 42 % (42-52) 01/08/24 21:38 MCV 86.0 fL (80.0-100.0) 01/08/24 21: MCH 28.7 pg (25.0-34.0) 01/08/24 21: MCHC 33.3 g/dL (32.0-36.0) 01/08/24 21: RDW Std Deviation 44.0 fL (36.4-46.3) 01/08/24 21: RDW Coeff of Adam 14.2 % (11.5-14.5) 01/08/24 21: Plt Count 193 K/uL (130-400) 01/08/24 21: MPV 11.1 fL (9.4-12.4) 01/08/24 21: Immature Gran % (Auto) 0.2 % 01/08/24 21: Neut % (Auto) 53.5 % 01/08/24 21: Lymph % (Auto) 29.0 % 01/08/24 21:32 Schley % (Auto) 14.7 % 01/08/24 21: Eos % (Auto) 1.9 % 01/08/24: Baso % (Auto) 0.7 % 01/08/24: Neut # (Auto) 4.88 K/uL (1.40-6.50) 01/08/24 21: Lymph # (Auto) 2.64 K/uL (1.20-3.40) 01/08/24 21: Schley # (Auto) 1.34 K/uL (0.11-0.59) H 01/08/24 21:32 Eos # (Auto) 0.17 K/uL (0.00-0.50) 01/08/24 21: Baso # (Auto) 0.06 K/uL (0.00-0.20) 01/08/24 21: Immature Gran # (Auto) 0.02 K/uL (0.01-0.20) 01/08/24 21:32 PT 11.5 Seconds (9.0-12.0) 01/08/24 21:32 INR 1.1 (0.9-1.1) 01/08/24 21:32 APTT 26 Seconds (21-31) 01/08/24 21:32 PTT Ratio 1.0 01/08/24 21:32 POC Sodium 139 mmol/L (135-144) 01/08/24 21:38 Sodium 137 mmol/L (136-145) 01/08/24 21:32 POC Potassium 4.1 mmol/L (3.3-5.0) 01/08/24 21:38 Potassium 4.2 mmol/L (3.5-5.1) 01/08/24 21:32 POC Chloride 104 mmol/L (101-112) 01/08/24 21:38 Chloride 103 mmol/L (98-107) 01/08/24 21:32 Carbon Dioxide 25 mmol/L (21-32) 01/08/24 21:32 POC Total CO2 21 mmol/L (24-31) L 01/08/24 21:38 Anion Gap 9 (3-11) 01/08/24 21:32 POC Anion Gap 19.0 mmol/L (16-25) 01/08/24 21:38 POC BUN 30 mg/dl (7-18) H 01/08/24 21:38 BUN 30 mg/dl (6-23) H 01/08/24 21:32 Creatinine 1.70 mg/dl (0.6-1.4) H 01/08/24 21:32 POC Creatinine 1.9 mg/dl (0.6-1.3) H 01/08/24 21:38 Est Cr Clr Drug Dosing 32.5 ml/min 01/08/24 21:32 Est GFR ( Amer) 42.3 ml/min 01/08/24 21:32 Est GFR (Non-Af Amer) 36.5 ml/min 01/08/24 21:32 BUN/Creatinine Ratio 17.6 (10-20) 01/08/24 21:32 Glucose 128 mg/dl (70-99(Fasting)) H 01/08/24 21:32 POC Glucose (other) 126 mg/dl (70-99) H 01/08/24 21:38 Estimat Average Glucose 146 mg/dl 01/08/24 21:32 Hemoglobin A1c 6.7 % (4.5-5.6) H 01/08/24 21:32 Calcium 10.2 mg/dl (8.6-10.3) 01/08/24 21:32 POC Ioniz Calcium Suzanna 1.19 mmol/l (1.12-1.32) 01/08/24 21:38 Magnesium 2.0 mg/dl (1.7-2.4) 01/08/24 21:32 Total Bilirubin 0.7 mg/dl (0.2-1.0) 01/08/24 21:32 AST 30 U/L (13-39) 01/08/24 21:32 ALT 19 U/L (7-52) 01/08/24 21:32 Alkaline Phosphatase 71 U/L (34-104) 01/08/24 21:32 Troponin I High Sens 277.8 pg/ml (0-20) H* 01/08/24 21:32 Total Protein 7.2 gm/dl (6.0-8.3) 01/08/24 21:32 Albumin 4.4 gm/dl (3.4-5.0) 01/08/24 21:32 Globulin 2.8 gm/dl (2.5-4.0) 01/08/24 21:32 Albumin/Globulin Ratio 1.6 (0.9-2) 01/08/24 21:32 Lipase 13 U/L (11-82) 01/08/24 21:32 TSH 12.118 uIu/ml (0.300-4.500) H 01/08/24 21:32 Free T4 0.88 ng/dl (0.61-1.60) 01/08/24 21:32 Diagnostic Findings Chest x-ray as per my interpretation interstitial infiltrates EKG as per them interpretation: Rate 180, wide QRS tachycardia, normal axis, RBBB, inferior infarct
[2024-01-08] MEDS ORDERED: PROMETHAZINE HCL 6.25 MG in SODIUM CHLORIDE 0.9% 50 ML IV PRN (23:38)
[2024-01-08] MEDS ORDERED: traMADol HCL 50 MG TABLET PO PRN (23:38)
[2024-01-08] MEDS ORDERED: LEVALBUTEROL 1.25 MG/3 ML NEB NEB PRN (23:39)
[2024-01-08] MEDS ORDERED: IPRATROPIUM BROMIDE NEB SOLN 0.02% 0.5MG/2.5ML VIAL INH PRN (23:39)
[2024-01-08 23:49] LABS: D Dimer 310 ug/L FEU (0-500)
[2024-01-08] MEDS: AMPICILLIN/SULBACTAM SOD 3,000 MG in SODIUM CHLOR 0.9% MINI-B 100 ML IV STA (23:58)
[2024-01-09 00:36] LABS: Influenza A virus by PCR Negative (Neg); Influenza B virus by PCR Negative (Neg); RSV by PCR Negative (Neg); SARS CoV2 RNA(COVID-19) Ceph NEGATIVE (Negative)
[2024-01-09] MEDS: SODIUM CHLORIDE 0.9% 1,000 ML IV STA (00:39)
[2024-01-09] MEDS ORDERED: CARBOHYDRATES FOR HYPOGLYCEMIA PO PRN (00:48)
[2024-01-09] MEDS ORDERED: GLUCAGON FOR INJ 1 MG VIAL SQ PRN (00:48)
[2024-01-09] MEDS ORDERED: GLUCOSE 40% GEL 15 GM TUBE PO PRN (00:48)
[2024-01-09] MEDS ORDERED: DEXTROSE 50% 50 ML SYRINGE IV PRN (00:48)
[2024-01-09] MEDS ORDERED: GLUCOSE 10 TAB/TUBE PO PRN (00:48)
[2024-01-09] MEDS ORDERED: NITROGLYCERIN SL 0.4 MG/TAB TAB SL PRN (01:59)
[2024-01-09] MEDS ORDERED: DICLOFENAC SOD 1% GEL 100 GM TUBE EXT PRN (01:59)
[2024-01-09] MEDS: INSULIN ASPART PER UNIT CHARGE SC SCH (02:24)
[2024-01-09] MEDS: ASPIRIN 81 MG ECTAB PO SCH (03:33)
[2024-01-09 05:13] LABS: Basophils # (auto) 0.04 K/uL (0.00-0.20); Basophils % (auto) 0.6 %; Eosinophils # (auto) 0.16 K/uL (0.00-0.50); Eosinophils % (auto) 2.4 %; Hematocrit (blood only) 35.9 % (42.0-52.0); Hemoglobin 11.8 g/dl (14.0-18.0); Immature Granulocytes # (auto) 0.02 K/uL (0.01-0.20); Immature Granulocytes % (auto) 0.3 %; Lymphocytes # (auto) 2.16 K/uL (1.20-3.40); Lymphocytes % (auto) 32.2 %; Mean Corpuscular Hemoglobin 28.4 pg (25.0-34.0); Mean Corpuscular Hgb Conc 32.9 g/dL (32.0-36.0); Mean Corpuscular Volume 86.5 fL (80.0-100.0); Mean Platelet Volume 10.8 fL (9.4-12.4); Monocytes # (auto) 0.92 K/uL (0.11-0.59); Monocytes % (auto) 13.7 %; Neutrophils % (auto) 50.8 %; Platelet Count 157 K/uL (130-400); RDW Coefficient of Variation 14.4 % (11.5-14.5); RDW Standard Deviation 46.2 fL (36.4-46.3); Red Blood Count 4.15 M/uL (4.70-6.10)
[2024-01-09 05:27] LABS: BUN Creatinine Ratio 18.2 (10-20); Calcium 8.5 mg/dl (8.6-10.3); Creatinine Clr Calc Pharmacy 37.4 ml/min; Est GFR (Non-African American) 43.1 ml/min; Potassium 4.1 mmol/L (3.5-5.1)
[2024-01-09] MEDS: HEPARIN SOD 5,000 UNIT/0.5 ML VIAL SQ SCH (06:21)
[2024-01-09] MEDS: LEVOTHYROXINE SODIUM 125 MCG TABLET PO SCH (06:21)
[2024-01-09] MEDS ORDERED: LEVOTHYROXINE SODIUM 137 MCG TABLET PO SCH (06:30)
--- NOTE | 2024-01-09 07:17 | XRay Report ---
XR chest 1V portable HISTORY: Chest pain, nonspecific COMPARISON: Chest 07/21/2016. FINDINGS: There are low lung volumes. No pneumothorax. No pleural effusions. The cardiac silhouette i s mildly enlarged. There is mild central pulmonary vascular congestion without overt edema. No new fo siria lung consolidations to suggest a pneumonia. No acute fractures. IMPRESSION: Cardiomegaly with mild congestive change. ACT 112: Negative or not required by law. Electronically signed by: Lucius Ya M.D. 01/09/2024 7:15 AM
[2024-01-09] MEDS: METOPROLOL SUCC 25MG EXT REL TAB PO SCH (07:54)
[2024-01-09] MEDS: PANTOprazole 40 MG TAB PO SCH (08:48)
[2024-01-09] MEDS: FAMOTIDINE 20 MG TAB PO SCH (08:48)
[2024-01-09] MEDS: AMOXICILLIN/CLAVULANATE 875 MG TAB PO SCH (08:48)
[2024-01-09] MEDS: ATORVASTATIN 40 MG TAB PO SCH (08:49)
[2024-01-09] MEDS: FINASTERIDE 5 MG TAB PO SCH (08:49)
[2024-01-09] MEDS ORDERED: METOPROLOL SUCC 25MG EXT REL TAB PO SCH (09:00)
--- NOTE | 2024-01-09 11:19 | Cardiology Consultation ---
Date of Consultation January 09, 2024 Assessment & Plan (1) Ventricular tachycardia: (2) Ischemic cardiomyopathy: (3) Acute systolic (congestive) heart failure: Plan 83-year-old male with ischemic cardiomyopathy presenting and sustained ventricular tachycardia of undetermined duration. Patient unaware of tachypalpitations but feeling poorly for several days prior. Successful cardioversion. No acute EKG changes post and this morning Resting bradycardia present however Echocardiogram with extensive inferior posterior Exam consistent with mild to moderate volume overload rales basilar right lung abdominal distention Plan: Discussed above findings in detail with patient. Discussed indications for pacer defibrillator which patient adamantly declines. Not interested in heart catheterization as well Will initiate amiodarone at 200 mg twice per day orally. Hold metoprolol succinate. Resting bradycardia may ultimately be a concern Diuresis with IV furosemide first dose now Add ROSARIO/ARB versus Entresto after further discussion with patient History of Present Illness Reason for Consultation: Sustained ventricular tachycardia Requesting Physician: Dr. Patel Attending Physician: Adolfo Patel MD History of Present Illness Patient is an 83-year-old male with known ischemic heart disease/ischemic cardiomyopathy cardiac history as below 1. Chronic coronary heart disease status post acute inferior wall myocardial infarction with right ventricular involvement in May 2014 during which time the patient had transient sinus bradycardia and hypotension and required support with IV fluids and transient dopamine infusion. The RCA lesion was not amenable to PCI and patient was managed with supportive medical care, Also had previous [place] in 1998 additional moderate residual disease in both the left circumflex and the left anterior descending 2. Ischemic cardiomyopathy 3. History of right upper extremity DVT net PICC line site, resolved having completed 6 months of Coumadin in 2014 4. Frequent PVCs, asymptomatic 5. Dyslipidemia Patient presented this mission having felt poorly for approximately a week but acutely worse day of admission. No sense of tachypalpitations but generalized malaise and shortness of breath. Denies chest pain but felt mild chest pressure. Presented to the emergency room where is found to be in sustained ventricular tachycardia with rapid ventricular response. Ultimately underwent cardioversion with successful return to sinus rhythm. Started on IV amiodarone but discontinued due to bradycardia Patient aware of increasing dyspnea and some orthopnea over the past several days. Increasing abdominal girth. No edema. Physically active about home but with recent decrease in tolerance. No specific anginal symptoms. No fevers chills or unexplained infections. Has been more breathless and notes moderate cough. No bleeding issues Allergies Allergy/AdvReac Type Severity Reaction Status Date / Time iodine Allergy Intermediate RASH Verified 01/09/24 01:08 meperidine Allergy Intermediate RASH Verified 01/09/24 01:08 Sulfa (Sulfonamide Allergy Intermediate hives Verified 01/09/24 01:08 Antibiotics) Home Medications Medication Instructions Recorded Confirmed Type acetaminophen 500 mg tablet 500 mg PO Q8 PRN Pain 01/09/24 01/09/24 History aspirin 81 mg tablet 81 mg PO HS 01/09/24 01/09/24 History atorvastatin 80 mg tablet 80 mg PO DAILY 01/09/24 01/09/24 History diclofenac sodium 1 % topical gel 2 g topical QID PRN Pain 01/09/24 01/09/24 History diphenhydramine HCl 25 mg capsule 25 mg PO PRN Allergic Reaction 01/09/24 History (Benadryl) doxazosin 8 mg tablet 8 mg PO HS 01/09/24 01/09/24 History famotidine 20 mg tablet 20 mg PO DAILY 01/09/24 01/09/24 History finasteride 5 mg tablet 5 mg PO DAILY 01/09/24 01/09/24 History furosemide 20 mg tablet 20 mg PO DAILY 01/09/24 01/09/24 History levothyroxine 125 mcg tablet 125 mcg PO DAILYBB 01/09/24 01/09/24 History metoprolol succinate 25 mg 25 mg PO DAILY 01/09/24 01/09/24 History tablet,extended release 24 hr nitroglycerin 0.4 mg sublingual 0.4 mg sublingual TID PRN Chest 01/09/24 01/09/24 History tablet Pain omeprazole 20 mg capsule,delayed 20 mg PO DAILY 01/09/24 01/09/24 History release prednisone 50 mg tablet 50 mg PO PREOP PRN Allergic 01/09/24 01/09/24 History Reaction triamcinolone acetonide 0.1 % 1 applic topical BID PRN Pain 01/09/24 01/09/24 History topical cream Patient History Social History Smoking Status: Former smoker Do You Dip or Chew Tobacco: No; Hx Alcohol Use: Yes Hx Substance Use: No Preferred Language: Portuguese Communication Ability: Effective Manga Artist Required: No Beliefs That Will Affect Care: None Current Living Situation: Spouse Feels Safe at Home: Yes Safety Concerns: Feels Safe At This Time Assistive Devices: Glasses Review of Systems Review of Systems: All systems reviewed & are unremarkable except as noted in HPI & below Physical Exam Constitutional: no acute distress Eyes: PERRL, conjunctivae normal, anicteric sclerae ENMT: external ear and nose normal, oropharynx normal Neck: trachea midline, no thyromegaly Respiratory: Auscultation: + rales and + rhonchi (Right base) Cardiovascular: Rate/Rhythm: regular rate and regular rhythm Heart Sounds: normal S1 and normal S2 Extremities: no edema Gastrointestinal (Abdomen): Increased abdominal girth with fullness Musculoskeletal: no cyanosis or clubbing, extremities motor strength 5/5 Results & Data Vital Signs (Past 12 Hours) Vital Signs Pulse Pulse Resp BP Pulse Ox Pulse Ox O2 Del Method 01/09/24 07:32 44 L 17 125/71 94 Room Air 01/09/24 06:55 52 L 01/09/24 06:00 52 L 18 132/69 95 Room Air 01/09/24 04:00 45 L 16 125/78 95 Room Air 01/09/24 01:44 54 L 16 111/73 94 Room Air 01/09/24 01:44 95 01/09/24 01:31 55 L 01/09/24 00:35 56 L 17 113/67 93 Room Air 01/08/24 23:50 53 L 16 105/68 98 Oxymask O2 Del Method O2 Flow Rate 01/09/24 07:32 01/09/24 06:55 01/09/24 06:00 01/09/24 04:00 01/09/24 01:44 01/09/24 01:44 Room Air 01/09/24 01:31 01/09/24 00:35 01/08/24 23:50 2 Laboratory Results Laboratory Results - last 24 hr 01/08/24 01/08/24 01/08/24 21:32 21:38 23:40 WBC 9.11 RBC 4.92 Hgb 14.1 POC Hgb 14.3 Hct 42.3 POC Hct 42 MCV 86.0 MCH 28.7 MCHC 33.3 RDW Std Deviation 44.0 RDW Coeff of Adam 14.2 Plt Count 193 MPV 11.1 Immature Gran % (Auto) 0.2 Neut % (Auto) 53.5 Lymph % (Auto) 29.0 Gilliam % (Auto) 14.7 Eos % (Auto) 1.9 Baso % (Auto) 0.7 Neut # (Auto) 4.88 Lymph # (Auto) 2.64 Gilliam # (Auto) 1.34 H Eos # (Auto) 0.17 Baso # (Auto) 0.06 Immature Gran # (Auto) 0.02 PT 11.5 INR 1.1 APTT 26 PTT Ratio 1.0 D-Dimer 310 POC Sodium 139 Sodium 137 POC Potassium 4.1 Potassium 4.2 POC Chloride 104 Chloride 103 Carbon Dioxide 25 POC Total CO2 21 L Anion Gap 9 POC Anion Gap 19.0 POC BUN 30 H BUN 30 H Creatinine 1.70 H POC Creatinine 1.9 H Est Cr Clr Drug Dosing 32.5 Est GFR ( Amer) 42.3 Est GFR (Non-Af Amer) 36.5 BUN/Creatinine Ratio 17.6 Glucose 128 H POC Glucose POC Glucose (other) 126 H Estimat Average Glucose 146 Hemoglobin A1c 6.7 H Calcium 10.2 POC Ioniz Calcium Suzanna 1.19 Magnesium 2.0 Total Bilirubin 0.7 AST 30 ALT 19 Alkaline Phosphatase 71 Troponin I High Sens 277.8 H* Total Protein 7.2 Albumin 4.4 Globulin 2.8 Albumin/Globulin Ratio 1.6 Lipase 13 TSH 12.118 H Free T4 0.88 SARS-CoV-2 (PCR) NEGATIVE Influenza Type A (PCR) Negative Influenza Type B (PCR) Negative RSV (RT-PCR) Negative 01/08/24 01/09/24 01/09/24 23:45 04:58 07:44 WBC 6.70 RBC 4.15 L Hgb 11.8 L POC Hgb Hct 35.9 L POC Hct MCV 86.5 MCH 28.4 MCHC 32.9 RDW Std Deviation 46.2 RDW Coeff of Adam 14.4 Plt Count 157 MPV 10.8 Immature Gran % (Auto) 0.3 Neut % (Auto) 50.8 Lymph % (Auto) 32.2 Gilliam % (Auto) 13.7 Eos % (Auto) 2.4 Baso % (Auto) 0.6 Neut # (Auto) 3.40 Lymph # (Auto) 2.16 Gilliam # (Auto) 0.92 H Eos # (Auto) 0.16 Baso # (Auto) 0.04 Immature Gran # (Auto) 0.02 PT INR APTT PTT Ratio D-Dimer POC Sodium Sodium 138 POC Potassium Potassium 4.1 POC Chloride Chloride 107 Carbon Dioxide 25 POC Total CO2 Anion Gap 6 POC Anion Gap POC BUN BUN 27 H Creatinine 1.48 H POC Creatinine Est Cr Clr Drug Dosing 37.4 Est GFR ( Amer) 50.0 Est GFR (Non-Af Amer) 43.1 BUN/Creatinine Ratio 18.2 Glucose 123 H POC Glucose 120 H POC Glucose (other) Estimat Average Glucose Hemoglobin A1c Calcium 8.5 L POC Ioniz Calcium Suzanna Magnesium Total Bilirubin AST ALT Alkaline Phosphatase Troponin I High Sens 252.2 H* Total Protein Albumin Globulin Albumin/Globulin Ratio Lipase TSH Free T4 SARS-CoV-2 (PCR) Influenza Type A (PCR) Influenza Type B (PCR) RSV (RT-PCR) Diagnostic Findings Echocardiogram 01/09/2024: Ischemic cardiomyopathy EF 20 to 25% with extensive inferior posterior scarring
[2024-01-09 11:37] LABS: Appearance Urine Clear (Clear); Bilirubin Urine Negative (Negative); Blood Urine Negative (Negative); Color Urine Yellow; Glucose Urine UA Negative (Negative); Ketones Urine Negative (Negative); Leukocyte Esterase Urine Negative (Negative); Nitrite Urine Negative (Negative); Protein Urine Negative (Negative); Specific Gravity Urine 1.027 (1.000-1.030); Urobilinogen Urine Negative (Negative); pH Urine 5.5 (4.5-7.5)
[2024-01-09] MEDS: FUROSEMIDE 40 MG/4 ML VIAL IV ONE (12:07)
--- NOTE | 2024-01-09 15:10 | Hospitalist Progress Note ---
Date of Service January 09, 2024 Assessment & Plan (1) Ventricular tachycardia: Plan: Ventricular tachycardia Acute on chronic systolic heart failure Ischemic cardiomyopathy S/P successful cardioversion in ED Troponin elevation likely demand ischemia secondary to above Possible NSTEMI --CXR: Cardiomegaly with mild congestive change. --ECHO: Left ventricle is normal in size. Extensive inferior, inferoseptal, posterior infarct with scar and akinesis involving the basilar and mid segments. All other segments mildly hypokinetic. Left ventricle systolic function is moderate to severely reduced. EF 20 to 25%. Aortic valve sclerosis mild, without significant stenosis. Mild aortic regurgitation. Mild mitral regurgitation, moderate tricuspid regurgitation. -- Elevated TSH, normal free T4 -- Patient not interested in ICD, cardiac catheterization Started on amiodarone 200 mg twice a day Hold metoprolol for now Received IV Lasix Need to be started on Entresto as able Appreciate cardiology input Monitor I's and O's, daily weight, volume status and electrolytes Possible Aspiration Chest x-ray showed no signs of pneumonia Empirically on Augmentin JESSIKA on CKD stage III Cr 1.4 today Monitor renal function Avoid nephrotoxic agents as able DM II New diagnosis HbA1c 6.7 Continue insulin while hospitalized Monitor BGs CAD Hypertension Hyperlipidemia Continue aspirin, statin Resume metoprolol as able Monitor blood pressure closely Hypothyroidism Elevated TSH, normal T4 Continue levothyroxine Needs repeat thyroid function test as outpatient H/O upper extremity DVT Previously on Coumadin Colon cancer S/P Surgery Past Tobacco Abuse DVT Px: Heparin SQ Code Status Full code Admission and Anticipated Discharge Date Admission Date: January 08, 2024 Subjective Patient is seen and examined at bedside States feeling well today Offers no new complaints Discussed with patient's family at bedside Denies any chest pain, dyspnea, dizziness, nausea, vomiting, abdominal pain, palpitations Review of Systems Review of Systems: All systems reviewed & are unremarkable except as noted in Subjective Physical Exam Physical Exam: Physical Exam: Vitals signs as noted above General Appearance:Moderately built and nourished, no apparent distress Head: normocephalic, Atraumatic Eyes: normal inspection, EOMI Neck: supple, Trachea midline Respiratory/Chest: Normal breath sounds, basal rales, No accessory muscle use Cardiovascular: S1, S2, No murmur Abdomen/GI:Soft, Non tender, Bowel sounds present Extremities/Musculoskeletal:normal inspection, no edema Neurologic/Psych:AAOX3, grossly no focal neurological deficits Skin: normal color, warm Results & Data Results & Data Vital Signs (Past 12 Hours) Vital Signs Pulse Pulse Resp BP Pulse Ox O2 Del Method 01/09/24 13:48 64 18 133/65 98 Room Air 01/09/24 12:07 64 18 126/76 98 Room Air 01/09/24 11:25 54 L 18 158/98 H 98 Room Air 01/09/24 07:32 44 L 17 125/71 94 Room Air 01/09/24 06:55 52 L 01/09/24 06:00 52 L 18 132/69 95 Room Air 01/09/24 04:00 45 L 16 125/78 95 Room Air Laboratory Results Short CBC 01/08/24 01/09/24 Range/Units 21:32 04:58 WBC 9.11 6.70 (4.8-10.8) K/ul Hgb 14.1 11.8 L (14.0-18.0) g/dl Hct 42.3 35.9 L (42.0-52.0) % Plt Count 193 157 (130-400) K/uL BMP 01/08/24 01/09/24 21:32 04:58 Sodium 137 138 Potassium 4.2 4.1 Chloride 103 107 Carbon Dioxide 25 25 BUN 30 H 27 H Creatinine 1.70 H 1.48 H Glucose 128 H 123 H Calcium 10.2 8.5 L Liver Function 01/08/24 Range/Units 21:32 Total Bilirubin 0.7 (0.2-1.0) mg/dl AST 30 (13-39) U/L ALT 19 (7-52) U/L Alkaline Phosphatase 71 (34-104) U/L Albumin 4.4 (3.4-5.0) gm/dl Urine 01/09/24 Range/Units 10:20 Urine Color Yellow Urine Appearance Clear (Clear) Urine pH 5.5 (4.5-7.5) Ur Specific [place] 1.027 (1.000-1.030) Urine Protein Negative (Negative) Urine Glucose (UA) Negative (Negative)
--- NOTE | 2024-01-09 16:20 | Communication Note ---
Date of Service: January 09, 2024 Met with patient and family once again. Hemodynamically stable today with good diuresis after single dose of IV furosemide Discussed implications of sustained VT with ischemic cardiomyopathy. Now agreeable to consider pacer defibrillator. Likely Tuesday Continue oral amiodarone ekg am
[2024-01-09] MEDS: AMIODARONE 200 MG TAB PO SCH (17:15)
[2024-01-09] MEDS: DOXAZosin MESYLATE 4 MG TAB PO SCH (19:56)
[2024-01-10 05:16] LABS: BUN Creatinine Ratio 17.7 (10-20); Calcium 8.5 mg/dl (8.6-10.3); Est GFR (African American) 46.2 ml/min; Est GFR (Non-African American) 39.9 ml/min; Magnesium 1.9 mg/dl (1.7-2.4); Potassium 3.8 mmol/L (3.5-5.1)
[2024-01-10 05:30] LABS: Hematocrit (blood only) 38.2 % (42.0-52.0); Hemoglobin 12.6 g/dl (14.0-18.0); Mean Corpuscular Hemoglobin 28.5 pg (25.0-34.0); Mean Corpuscular Volume 86.4 fL (80.0-100.0); Mean Platelet Volume 10.9 fL (9.4-12.4); Platelet Count 176 K/uL (130-400); RDW Coefficient of Variation 14.2 % (11.5-14.5); RDW Standard Deviation 44.8 fL (36.4-46.3); Red Blood Count 4.42 M/uL (4.70-6.10); White Blood Count 9.38 K/ul (4.8-10.8)
[2024-01-10 05:32] LABS: Thyroid Stimulating Hormone 7.663 uIu/ml (0.300-4.500)
--- NOTE | 2024-01-10 06:06 | Electrocardiogram Report ---
Test Reason : Blood Pressure : / mmHG Vent. Rate : 186 BPM Atrial Rate : 000 BPM P-R Int : 000 ms QRS Dur : 146 ms QT Int : 270 ms P-R-T Axes : 000 263 060 degrees QTc Int : 475 ms Wide QRS tachycardia Right bundle branch block Inferior infarct , age undetermined Abnormal ECG When compared with ECG of 08-JAN-2024 21:27, No significant change was found Confirmed by Raul Valdivia ([id number]) on 01/10/2024 6:06:35 AM Referred By: REFERRED SELF Confirmed By:Raul Valdivia
--- NOTE | 2024-01-10 06:06 | Electrocardiogram Report ---
Test Reason : Blood Pressure : / mmHG Vent. Rate : 187 BPM Atrial Rate : 000 BPM P-R Int : 000 ms QRS Dur : 134 ms QT Int : 266 ms P-R-T Axes : 000 265 067 degrees QTc Int : 469 ms Wide QRS tachycardia Right bundle branch block Inferior infarct , age undetermined Abnormal ECG When compared with ECG of 20-MAY-2014 08:58, Wide QRS tachycardia has replaced Sinus rhythm Vent. rate has increased BY 118 BPM Confirmed by Raul Valdivia ([id number]) on 01/10/2024 6:06:01 AM Referred By: REFERRED SELF Confirmed By:Raul Valdivia
[2024-01-10 06:08] LABS: T4 Free Thyroxine 0.83 ng/dl (0.61-1.60)
--- NOTE | 2024-01-10 06:08 | Electrocardiogram Report ---
Test Reason : Blood Pressure : / mmHG Vent. Rate : 068 BPM Atrial Rate : 068 BPM P-R Int : 128 ms QRS Dur : 098 ms QT Int : 388 ms P-R-T Axes : -68 -25 183 degrees QTc Int : 412 ms Ectopic atrial rhythm with frequent Premature ventricular complexes in a pattern of bigeminy Inferior infarct , age undetermined Anterior infarct , age undetermined Abnormal ECG When compared with ECG of 08-JAN-2024 21:49, Ectopic atrial rhythm has replaced Wide QRS tachycardia Vent. rate has decreased BY 118 BPM Confirmed by Raul Valdivia ([id number]) on 01/10/2024 6:08:34 AM Referred By: REFERRED SELF Confirmed By:Raul Valdivia
--- NOTE | 2024-01-10 06:18 | Electrocardiogram Report ---
Test Reason : Blood Pressure : / mmHG Vent. Rate : 055 BPM Atrial Rate : 055 BPM P-R Int : 196 ms QRS Dur : 102 ms QT Int : 492 ms P-R-T Axes : 026 089 218 degrees QTc Int : 470 ms Sinus bradycardia Anterior infarct (cited on or before 17-MAY-2014) Abnormal ECG When compared with ECG of 08-JAN-2024 22:09, Sinus rhythm has replaced Ectopic atrial rhythm QRS axis Shifted right Criteria for Inferior infarct are no longer Present QT has lengthened T wave inversion more evident in Lateral leads Confirmed by Raul Valdivia ([id number]) on 01/10/2024 6:17:58 AM Referred By: REFERRED SELF Confirmed By:Raul Valdivia
--- NOTE | 2024-01-10 12:31 | Cardiology Progress Note ---
Date of Service January 10, 2024 Assessment & Plan (1) Ventricular tachycardia: (2) Ischemic cardiomyopathy: (3) Acute systolic (congestive) heart failure: Plan 83-year-old male with ischemic cardiomyopathy presenting and sustained ventricular tachycardia of undetermined duration. Patient unaware of tachypalpitations but feeling poorly for several days prior. Successful cardioversion. No acute EKG changes post and this morning Resting bradycardia present however Echocardiogram with extensive inferior posterior Exam consistent with mild to moderate volume overload rales basilar right lung abdominal distention Plan: Discussed above findings in detail with patient. Discussed indications for pacer defibrillator which patient adamantly declines. Not interested in heart catheterization as well Will initiate amiodarone at 200 mg twice per day orally. Hold metop rolol succinate. Resting bradycardia may ultimately be a concern Diuresis with IV furosemide first dose now Add ROSARIO/ARB versus Entresto after further discussion with patient 01/10/2024 Clinically improved no further arrhythmias other than ventricular ectopy and mild bradycardia Plan continue amiodarone 20 mg twice per day Pacer defibrillator tomorrow Add losartan 25 mg p.o. daily beginning today. Will assess renal function and assess financial feasibility of Entresto Daily weights and I's and O's Likely ischemic workup post discharge Admission and Anticipated Discharge Date Admission Date: January 08, 2024 Subjective Patient seen and examined, chart, medications, telemetry reviewed No cardiac complaints. No chest pain or shortness of breath. No arrhythmias other than occasional ventricular ectopy and couplets. No dizziness or lightheadedness Had brisk diuresis per patient I's and O's and weights not recorded No breathlessness, abdominal distention decreased Physical Exam Constitutional: no acute distress Eyes: PERRL, conjunctivae normal, anicteric sclerae ENMT: external ear and nose normal, oropharynx normal Neck: trachea midline, no thyromegaly Respiratory: Auscultation: + crackles (Left base) Cardiovascular: Rate/Rhythm: regular rate and regular rhythm Heart Sounds: normal S1 and normal S2 Extremities: no edema Gastrointestinal (Abdomen): normal bowel sounds, soft, nontender, no hepatosplenomegaly Musculoskeletal: no cyanosis or clubbing, extremities motor strength 5/5 Results & Data Vital Signs (Past 12 Hours) Vital Signs Temp Pulse Pulse Resp BP BP Pulse Ox 01/10/24 11:34 36.8 C 61 20 120/81 94 01/10/24 08:00 36.8 C 62 22 139/82 93 01/10/24 05:51 63 18 01/10/24 05:45 62 22 01/10/24 05:36 66 24 01/10/24 05:23 36.7 C 01/10/24 05:03 73 28 H 01/10/24 04:59 140/85 01/10/24 04:59 140/85 01/10/24 04:48 63 22 01/10/24 04:39 67 25 H 01/10/24 04:27 74 24 01/10/24 04:24 58 L 17 01/10/24 03:45 64 19 01/10/24 03:42 59 L 19 01/10/24 03:30 68 16 01/10/24 03:15 55 L 18 01/10/24 03:12 61 19 01/10/24 03:06 58 L 19 01/10/24 02:54 59 L 16 01/10/24 02:39 58 L 18 01/10/24 02:00 53 L 18 01/10/24 01:45 64 19 01/10/24 01:42 55 L 16 01/10/24 01:18 62 23 01/10/24 01:11 135/80 01/10/24 01:09 70 19 01/10/24 00:51 58 L 17 01/10/24 00:45 63 18 01/10/24 00:36 53 L 18 01/10/24 00:30 52 L 18 O2 Del Method 01/10/24 11:34 Room Air 01/10/24 08:00 Room Air 01/10/24 05:51 01/10/24 05:45 01/10/24 05:36 01/10/24 05:23 01/10/24 05:03 01/10/24 04:59 01/10/24 04:59 01/10/24 04:48 01/10/24 04:39 01/10/24 04:27 01/10/24 04:24 01/10/24 03:45 01/10/24 03:42 01/10/24 03:30 01/10/24 03:15 01/10/24 03:12 01/10/24 03:06 01/10/24 02:54 01/10/24 02:39 01/10/24 02:00 01/10/24 01:45 01/10/24 01:42 01/10/24 01:18 01/10/24 01:11 01/10/24 01:09 01/10/24 00:51 01/10/24 00:45 01/10/24 00:36 01/10/24 00:30
[2024-01-10] MEDS: LOSARTAN POTASSIUM 25 MG TAB PO SCH (13:32)
--- NOTE | 2024-01-10 14:27 | Hospitalist Progress Note ---
Date of Service January 10, 2024 Assessment & Plan (1) Ventricular tachycardia: Plan: Ventricular tachycardia Acute on chronic systolic heart failure Ischemic cardiomyopathy S/P successful cardioversion in ED Troponin elevation likely demand ischemia secondary to above Possible NSTEMI CXR: Cardiomegaly with mild congestive change. ECHO: Left ventricle is normal in size. Extensive inferior, inferoseptal, posterior infarct with scar and akinesis involving the basilar and mid segments. All other segments mildly hypokinetic. Left ventricle systolic function is moderate to severely reduced. EF 20 to 25%. Aortic valve sclerosis mild, without significant stenosis. Mild aortic regurgitation. Mild mitral regurgitation, moderate tricuspid regurgitation. Patient not interested in ICD, cardiac catheterization Started on amiodarone 200 mg twice a day Hold metoprolol for now Received IV Lasix started on losartan 25 mg daily and will be assessed by the athletics director for initiating Entresto Need to be started on Entresto as able Appreciate cardiology input will have ICD placement tomorrow Possible Aspiration Chest x-ray showed no signs of pneumonia Empirically on Augmentin Will continue antibiotic until the pacemaker implantation is done JESSIKA on CKD stage III Cr 1.4 today Monitor renal function Avoid nephrotoxic agents as able creatinine is minimally up at 1.58 likely secondary to dehydration DM II New diagnosis HbA1c 6.7 Continue insulin while hospitalized Monitor BGs- blood sugar has been running around 113 CAD Hypertension Hyperlipidemia Continue aspirin, statin Resume metoprolol as able Monitor blood pressure closely Hypothyroidism Elevated TSH, normal T4 Continue levothyroxine Needs repeat thyroid function test as outpatient in 3 to 6 weeks H/O upper extremity DVT Previously on Coumadin Colon cancer S/P Surgery Past Tobacco Abuse DVT Px: Heparin SQ Code Status Full code Admission and Anticipated Discharge Date Admission Date: January 08, 2024 Subjective 01/10/2024 The patient was seen and examined in ICU He has been feeling much better and denies any symptoms No arrhythmias, palpitation, shortness of breath or chest pain He will have ICD placed tomorrow Review of Systems Review of Systems: all systems reviewed and are unremarkable except as noted below Physical Exam Physical Exam: standing beside the bed without any acute distress Constitutional: well developed and well nourished; not ill appearing Eyes: PERRL, conjunctivae normal, anicteric sclerae ENMT: external ear and nose normal, oropharynx normal Neck: trachea midline, no thyromegaly Respiratory: no respiratory distress Auscultation: lungs clear to auscultation bilaterally Cardiovascular: Rate/Rhythm: regular rate and regular rhythm; not tachycardic Heart Sounds: normal S1 and normal S2; no murmur Extremities: no edema Gastrointestinal (Abdomen): Inspection/Auscultation: normal bowel sounds; abdomen not distended Percussion/Palpation: abdomen soft; abdomen nontender Musculoskeletal: no acute arthritis involving any of the joints Neurologic: normal touch/pain/proprioception and moves all extremities; no focal motor deficits Psychiatric: A+Ox3, euthymic affect Lymphatic: no cervical or axillary lymphadenopathy Results & Data Results & Data Vital Signs (Past 12 Hours) Vital Signs Temp Pulse Pulse Resp BP BP Pulse Ox 01/10/24 13:35 64 150/83 H 01/10/24 11:34 36.8 C 61 20 120/81 94 01/10/24 08:00 36.8 C 62 22 139/82 93 01/10/24 05:51 63 18 01/10/24 05:45 62 22 01/10/24 05:36 66 24 01/10/24 05:23 36.7 C 01/10/24 05:03 73 28 H 01/10/24 04:59 140/85 01/10/24 04:59 140/85 01/10/24 04:48 63 22 01/10/24 04:39 67 25 H 01/10/24 04:27 74 24 01/10/24 04:24 58 L 17 01/10/24 03:45 64 19 01/10/24 03:42 59 L 19 01/10/24 03:30 68 16 01/10/24 03:15 55 L 18 01/10/24 03:12 61 19 01/10/24 03:06 58 L 19 01/10/24 02:54 59 L 16 01/10/24 02:39 58 L 18 O2 Del Method 01/10/24 13:35 01/10/24 11:34 Room Air 01/10/24 08:00 Room Air 01/10/24 05:51 01/10/24 05:45 01/10/24 05:36 01/10/24 05:23 01/10/24 05:03 01/10/24 04:59 01/10/24 04:59 01/10/24 04:48 01/10/24 04:39 01/10/24 04:27 01/10/24 04:24 01/10/24 03:45 01/10/24 03:42 01/10/24 03:30 01/10/24 03:15 01/10/24 03:12 01/10/24 03:06 01/10/24 02:54 01/10/24 02:39 Laboratory Results Short CBC 01/10/24 Range/Units 04:27 WBC 9.38 (4.8-10.8) K/ul Hgb 12.6 L (14.0-18.0) g/dl Hct 38.2 L (42.0-52.0) % Plt Count 176 (130-400) K/uL BMP 01/10/24 04:27 Sodium 139 Potassium 3.8 Chloride 105 Carbon Dioxide 27 BUN 28 H Creatinine 1.58 H Glucose 99 Calcium 8.5 L Medications Administered Current Inpatient Medications Amiodarone HCl (Amiodarone 200 Mg Tab) 200 mg PO BIDM [facility] Stop: 02/08/24 16:59 Last Admin: 01/10/24 07:56 Dose: 200 mg Amoxicillin/Clavulanate Potassium (Amoxicillin/Clavulanate 875 Mg Tab) 1 tab PO BIDM [facility]; Protocol Stop: 01/16/24 07:59 Last Admin: 01/10/24 08:38 Dose: 1 tab Aspirin (Aspirin 81 Mg Ectab) 81 mg PO HS [facility] Stop: 02/08/24 02:14 Last Admin: 01/09/24 19:56 Dose: 81 mg Atorvastatin Calcium (Atorvastatin 40 Mg Tab) 80 mg PO DAILY [facility] Stop: 02/08/24 08:59 Last Admin: 01/10/24 07:57 Dose: 80 mg Dextrose (Dextrose 50% 50 Ml Syringe) 25 - 50 ml IV UD PRN; Protocol PRN Reason: Hypoglycemia Protocol Stop: 02/08/24 00:47 Diclofenac Sodium (Diclofenac Sod 1% Gel 100 Gm Tube) 2 gm EXT QID PRN; Protocol PRN Reason: Pain Stop: 02/08/24 01:58 Doxazosin Mesylate (Doxazosin Mesylate 4 Mg Tab) 8 mg PO HS [facility] Stop: 02/08/24 20:59 Last Admin: 01/09/24 19:56 Dose: 8 mg Famotidine (Famotidine 20 Mg Tab) 20 mg PO DAILY [facility] Stop: 02/08/24 08:59 Last Admin: 01/10/24 07:57 Dose: 20 mg Finasteride (Finasteride 5 Mg Tab) 5 mg PO DAILY [facility] Stop: 02/08/24 08:59 Last Admin: 01/10/24 07:57 Dose: 5 mg Glucagon (Glucagon For Inj 1 Mg Vial) 1 mg SQ UD PRN; Protocol PRN Reason: Hypoglycemia Protocol Stop: 02/08/24 00:47 Glucose (Glucose 40% Gel 15 Gm Tube) 15 - 30 gm PO UD PRN; Protocol PRN Reason: Hypoglycemia Protocol Stop: 02/08/24 00:47 Glucose (Glucose 10 Tab/Tube) 4 - 8 tab PO UD PRN; Protocol PRN Reason: Hypoglycemia Treatment Stop: 02/08/24 00:47 Heparin Sodium (Porcine) (Heparin Sod 5,000 Unit/0.5 Ml Vial) 5,000 units SQ Q8 [facility] Stop: 02/08/24 05:59 Last Admin: 01/10/24 13:32 Dose: 5,000 units Promethazine HCl 6.25 mg/ (Sodium Chloride) 50.25 mls @ 201 mls/hr IV Q6H PRN PRN Reason: Nausea And Vomiting Stop: 02/07/24 23:37 Insulin Aspart (Insulin Aspart Per Unit Charge) 0 units SC ACHS [facility] Stop: 02/08/24 00:47 Last Admin: 01/10/24 11:41 Dose: Not Given Ipratropium [place] (Ipratropium [place] Neb Soln 0.02% 0.5mg/2.5ml Vial) 0.5 mg INH Q4H PRN PRN Reason: sob wheeze Stop: 02/07/24 23:38 Levalbuterol HCl (Levalbuterol 1.25 Mg/3 Ml Neb) 1.25 mg NEB Q4H PRN PRN Reason: sob wheeze Stop: 02/07/24 23:38 Levothyroxine Sodium (Levothyroxine Sodium 125 Mcg Tablet) 125 mcg PO DAILYBB [facility] Stop: 02/08/24 06:29 Last Admin: 01/10/24 05:33 Dose: 125 mcg Losartan Potassium (Losartan Potassium 25 Mg Tab) 25 mg PO QAM [facility] Stop: 02/09/24 12:44 Last Admin: 01/10/24 13:32 Dose: 25 mg Metoprolol Succinate (Metoprolol Succ 25mg Ext Rel Tab) 25 mg PO DAILY [facility] Stop: 02/08/24 08:59 Last Admin: 01/09/24 07:54 Dose: Not Given Miscellaneous (Carbohydrates For Hypoglycemia ) 15 - 30 gm PO UD PRN PRN Reason: Hypoglycemia Protocol Stop: 02/08/24 00:47 Nitroglycerin (Nitroglycerin Sl 0.4 Mg/Tab Tab) 0.4 mg SL TID PRN PRN Reason: Chest Pain Stop: 02/08/24 01:58 Pantoprazole Sodium (Pantoprazole 40 Mg Tab) 40 mg PO DAILY [facility] Stop: 02/08/24 08:59 Last Admin: 01/10/24 07:57 Dose: 40 mg Tramadol HCl (Tramadol Hcl 50 Mg Tablet) 25 - 50 mg PO Q4H PRN PRN Reason: Pain Stop: 02/07/24 23:37
--- NOTE | 2024-01-10 21:00 | Electrocardiogram Report ---
Test Reason : Blood Pressure : / mmHG Vent. Rate : 067 BPM Atrial Rate : 067 BPM P-R Int : 198 ms QRS Dur : 106 ms QT Int : 466 ms P-R-T Axes : 013 021 255 degrees QTc Int : 492 ms Sinus rhythm with occasional Premature ventricular complexes Low voltage QRS Cannot rule out Inferior infarct , age undetermined Cannot rule out Anterior infarct (cited on or before 17-MAY-2014) Abnormal ECG When compared with ECG of 09-JAN-2024 11:03, Premature ventricular complexes are now Present Questionable change in QRS axis Confirmed by Raul Valdivia ([id number]) on 01/10/2024 9:00:21 PM Referred By: REFERRED SELF Confirmed By:Raul Valdivia
[2024-01-11 05:16] LABS: BUN Creatinine Ratio 14.8 (10-20); Calcium 9.1 mg/dl (8.6-10.3); Est GFR (African American) 55.9 ml/min; Est GFR (Non-African American) 48.2 ml/min
[2024-01-11 05:39] LABS: Basophils # (auto) 0.05 K/uL (0.00-0.20); Basophils % (auto) 0.7 %; Eosinophils # (auto) 0.25 K/uL (0.00-0.50); Eosinophils % (auto) 3.5 %; Hematocrit (blood only) 38.9 % (42.0-52.0); Hemoglobin 12.8 g/dl (14.0-18.0); Immature Granulocytes # (auto) 0.01 K/uL (0.01-0.20); Immature Granulocytes % (auto) 0.1 %; Lymphocytes # (auto) 1.61 K/uL (1.20-3.40); Lymphocytes % (auto) 22.8 %; Mean Corpuscular Hemoglobin 28.5 pg (25.0-34.0); Mean Corpuscular Hgb Conc 32.9 g/dL (32.0-36.0); Mean Corpuscular Volume 86.6 fL (80.0-100.0); Mean Platelet Volume 11.1 fL (9.4-12.4); Monocytes # (auto) 1.12 K/uL (0.11-0.59); Monocytes % (auto) 15.9 %; Neutrophils # (auto) 4.01 K/uL (1.40-6.50); Platelet Count 185 K/uL (130-400); RDW Coefficient of Variation 14.2 % (11.5-14.5); RDW Standard Deviation 44.8 fL (36.4-46.3); Red Blood Count 4.49 M/uL (4.70-6.10); White Blood Count 7.05 K/ul (4.8-10.8)
[2024-01-11] MEDS ORDERED: Nursing to Pharmacy Communication SCH ×2 (06:30→18:15)
[2024-01-11] MEDS: INSULIN ASPART PER UNIT CHARGE SC SCH ×2 (06:42→20:10)
--- NOTE | 2024-01-11 10:33 | Cardiology Progress Note ---
Date of Service January 11, 2024 Assessment & Plan (1) Ventricular tachycardia: (2) Ischemic cardiomyopathy: (3) Acute systolic (congestive) heart failure: Plan 83-year-old male with ischemic cardiomyopathy presenting and sustained ventricular tachycardia of undetermined duration. Patient unaware of tachypalpitations but feeling poorly for several days prior. Successful cardioversion. No acute EKG changes post and this morning Resting bradycardia present however Echocardiogram with extensive inferior posterior Exam consistent with mild to moderate volume overload rales basilar right lung abdominal distention Plan: Discussed above findings in detail with patient. Discussed indications for pacer defibrillator which patient adamantly declines. Not interested in heart catheterization as well Will initiate amiodarone at 200 mg twice per day orally. Hold metop rolol succinate. Resting bradycardia may ultimately be a concern Diuresis with IV furosemide first dose now Add ROSARIO/ARB versus Entresto after further discussion with patient 01/10/2024 Clinically improved no further arrhythmias other than ventricular ectopy and mild bradycardia Plan continue amiodarone 20 mg twice per day Pacer defibrillator tomorrow Add losartan 25 mg p.o. daily beginning today. Will assess renal function and assess financial feasibility of Entresto Daily weights and I's and O's Likely ischemic workup post discharge 01/11/2024 Clinically improving issues addressed as follows 1. Sustained ventricular tachycardia: Tolerating amiodarone 200 mg twice per day with planned pacer defibrillator later today 2. Ischemic cardiomyopathy with reduced ejection fraction. No symptoms of ischemia currently. Medications adjusted with the addition of losartan but reaching out to case management to assess cost efficacy of Entresto 3. Chronic renal insufficiency 4. Transient systolic heart failure clinically improved after single dose of diuresis, resolve of arrhythmia. CHF instructions to be provided Admission and Anticipated Discharge Date Admission Date: January 08, 2024 Subjective Patient was seen and examined, chart, medication, telemetry reviewed. Feels well this morning. No chest pains, shortness of breath, tachypalpitations. Telemetry sinus rhythm with complex ventricular ectopy only. Respiratory status improved per patient ambulatory in room without difficulty Renal function stable with losartan Review of Systems Review of Systems: All systems reviewed & are unremarkable except as noted in Subjective Physical Exam Constitutional: no acute distress Eyes: PERRL, conjunctivae normal, anicteric sclerae ENMT: external ear and nose normal, oropharynx normal Neck: trachea midline, no thyromegaly Respiratory: Auscultation: + crackles (Left base), + rales and + rhonchi (Right base) Cardiovascular: Rate/Rhythm: regular rate and regular rhythm Heart Sounds: normal S1 and normal S2 Extremities: no edema Gastrointestinal (Abdomen): normal bowel sounds, soft, nontender, no hepatosplenomegaly Musculoskeletal: no cyanosis or clubbing, extremities motor strength 5/5 Results & Data Vital Signs (Past 12 Hours) Vital Signs Temp Pulse Pulse Resp BP Pulse Ox O2 Del Method 01/11/24 08:00 36.6 C 64 22 154/86 H 94 Room Air 01/11/24 04:09 36.6 C 68 18 142/90 H 94 Room Air 01/11/24 00:11 36.7 C 58 L 18 151/87 H 94 Room Air 01/11/24 00:00 64 Laboratory Results Laboratory Results - last 24 hr 01/10/24 01/10/24 01/10/24 11:09 15:37 20:23 WBC RBC Hgb Hct MCV MCH MCHC RDW Std Deviation RDW Coeff of Adam Plt Count MPV Immature Gran % (Auto) Neut % (Auto) Lymph % (Auto) Elk % (Auto) Eos % (Auto) Baso % (Auto) Neut # (Auto) Lymph # (Auto) Elk # (Auto) Eos # (Auto) Baso # (Auto) Immature Gran # (Auto) Sodium Potassium Chloride Carbon Dioxide Anion Gap BUN Creatinine Est Cr Clr Drug Dosing Est GFR ( Amer) Est GFR (Non-Af Amer) BUN/Creatinine Ratio Glucose POC Glucose 113 H 95 95 Calcium Magnesium 01/11/24 04:33 WBC 7.05 RBC 4.49 L Hgb 12.8 L Hct 38.9 L MCV 86.6 MCH 28.5 MCHC 32.9 RDW Std Deviation 44.8 RDW Coeff of Adam 14.2 Plt Count 185 MPV 11.1 Immature Gran % (Auto) 0.1 Neut % (Auto) 57.0 Lymph % (Auto) 22.8 Elk % (Auto) 15.9 Eos % (Auto) 3.5 Baso % (Auto) 0.7 Neut # (Auto) 4.01 Lymph # (Auto) 1.61 Elk # (Auto) 1.12 H Eos # (Auto) 0.25 Baso # (Auto) 0.05 Immature Gran # (Auto) 0.01 Sodium 138 Potassium 4.0 Chloride 104 Carbon Dioxide 27 Anion Gap 7 BUN 20 Creatinine 1.35 Est Cr Clr Drug Dosing 41.0 Est GFR ( Amer) 55.9 Est GFR (Non-Af Amer) 48.2 BUN/Creatinine Ratio 14.8 Glucose 96 POC Glucose Calcium 9.1 Magnesium 2.0
--- NOTE | 2024-01-11 13:30 | Hospitalist Progress Note ---
Date of Service January 11, 2024 Assessment & Plan (1) Ventricular tachycardia: Plan: Ventricular tachycardia Acute on chronic systolic heart failure Ischemic cardiomyopathy S/P successful cardioversion in ED Troponin elevation likely demand ischemia secondary to above Possible NSTEMI CXR: Cardiomegaly with mild congestive change. ECHO: Left ventricle is normal in size. Extensive inferior, inferoseptal, posterior infarct with scar and akinesis involving the basilar and mid segments. All other segments mildly hypokinetic. Left ventricle systolic function is moderate to severely reduced. EF 20 to 25%. Aortic valve sclerosis mild, without significant stenosis. Mild aortic regurgitation. Mild mitral regurgitation, moderate tricuspid regurgitation. Patient not interested in ICD, cardiac catheterization Started on amiodarone 200 mg twice a day Hold metoprolol for now Received IV Lasix started on losartan 25 mg daily and will be assessed by the metal sorter for initiating Entresto Need to be started on Entresto as able Appreciate cardiology input Remains hemodynamically stable this morning Denies any symptoms whatsoever and did not have any arrhythmias Will go for AICD placement this afternoon Possible Aspiration Chest x-ray showed no signs of pneumonia Empirically on Augmentin Will continue antibiotic until the pacemaker implantation is done JESSIKA on CKD stage III Cr 1.4 today Monitor renal function Avoid nephrotoxic agents as able Creatinine is minimally up at 1.58 likely secondary to dehydration DM II New diagnosis HbA1c 6.7 Continue insulin while hospitalized Monitor BGs- blood sugar has been running around 113 CAD Hypertension Hyperlipidemia Continue aspirin, statin Resume metoprolol as able Monitor blood pressure closely Hypothyroidism Elevated TSH, normal T4 Continue levothyroxine Needs repeat thyroid function test as outpatient in 3 to 6 weeks H/O upper extremity DVT Previously on Coumadin Colon cancer S/P Surgery Past Tobacco Abuse DVT Px: Heparin SQ Code Status Full code Admission and Anticipated Discharge Date Admission Date: January 08, 2024 Subjective 01/10/2024 Patient was seen and examined, chart, medication, telemetry reviewed. Feels well this morning. No chest pains, shortness of breath, tachypalpitations. Telemetry sinus rhythm with complex ventricular ectopy only. Respiratory status improved per patient ambulatory in room without difficulty Renal function stable with losartan 01/11/2024 The patient was seen and examined in ICU He remains hemodynamically stable and denies any significant symptoms he will have AICD placed this afternoon Review of Systems Review of Systems: all systems reviewed and are unremarkable except as noted below Physical Exam Physical Exam: standing beside the bed without any acute distress Constitutional: well developed and well nourished; not ill appearing Eyes: PERRL, conjunctivae normal, anicteric sclerae ENMT: external ear and nose normal, oropharynx normal Neck: trachea midline, no thyromegaly Respiratory: no respiratory distress Auscultation: lungs clear to auscultation bilaterally Cardiovascular: Rate/Rhythm: regular rate and regular rhythm; not tachycardic Heart Sounds: normal S1 and normal S2; no murmur Extremities: no edema Gastrointestinal (Abdomen): Inspection/Auscultation: normal bowel sounds; abdomen not distended Percussion/Palpation: abdomen soft; abdomen nontender Neurologic: normal touch/pain/proprioception and moves all extremities; no focal motor deficits Psychiatric: A+Ox3, euthymic affect Lymphatic: no cervical or axillary lymphadenopathy Results & Data Results & Data Vital Signs (Past 12 Hours) Vital Signs Temp Pulse Resp BP Pulse Ox O2 Del Method 01/11/24 12:00 36.3 C L 61 20 152/85 H 95 Room Air 01/11/24 08:00 36.6 C 64 22 154/86 H 94 Room Air 01/11/24 04:09 36.6 C 68 18 142/90 H 94 Room Air Laboratory Results Short CBC 01/11/24 Range/Units 04:33 WBC 7.05 (4.8-10.8) K/ul Hgb 12.8 L (14.0-18.0) g/dl Hct 38.9 L (42.0-52.0) % Plt Count 185 (130-400) K/uL [facility] 01/11/24 04:33 Sodium 138 Potassium 4.0 Chloride 104 Carbon Dioxide 27 BUN 20 Creatinine 1.35 Glucose 96 Calcium 9.1 Medications Administered Current Inpatient Medications Amiodarone HCl (Amiodarone 200 Mg Tab) 200 mg PO BIDM [facility] Stop: 02/08/24 16:59 Last Admin: 01/11/24 07:50 Dose: 200 mg Amoxicillin/Clavulanate Potassium (Amoxicillin/Clavulanate 875 Mg Tab) 1 tab PO BIDM [facility]; Protocol Stop: 01/16/24 07:59 Last Admin: 01/11/24 07:50 Dose: 1 tab Aspirin (Aspirin 81 Mg Ectab) 81 mg PO HS MALISSA Stop: 02/08/24 02:14 Last Admin: 01/10/24 20:24 Dose: 81 mg Atorvastatin Calcium (Atorvastatin 40 Mg Tab) 80 mg PO DAILY MALISSA Stop: 02/08/24 08:59 Last Admin: 01/11/24 07:50 Dose: 80 mg Dextrose (Dextrose 50% 50 Ml Syringe) 25 - 50 ml IV UD PRN; Protocol PRN Reason: Hypoglycemia Protocol Stop: 02/08/24 00:47 Diclofenac Sodium (Diclofenac Sod 1% Gel 100 Gm Tube) 2 gm EXT QID PRN; Protocol PRN Reason: Pain Stop: 02/08/24 01:58 Doxazosin Mesylate (Doxazosin Mesylate 4 Mg Tab) 8 mg PO HS MALISSA Stop: 02/08/24 20:59 Last Admin: 01/10/24 20:24 Dose: 8 mg Famotidine (Famotidine 20 Mg Tab) 20 mg PO DAILY MALISSA Stop: 02/08/24 08:59 Last Admin: 01/11/24 07:51 Dose: 20 mg Finasteride (Finasteride 5 Mg Tab) 5 mg PO DAILY MALISSA Stop: 02/08/24 08:59 Last Admin: 01/11/24 07:51 Dose: 5 mg Glucagon (Glucagon For Inj 1 Mg Vial) 1 mg SQ UD PRN; Protocol PRN Reason: Hypoglycemia Protocol Stop: 02/08/24 00:47 Glucose (Glucose 40% Gel 15 Gm Tube) 15 - 30 gm PO UD PRN; Protocol PRN Reason: Hypoglycemia Protocol Stop: 02/08/24 00:47 Glucose (Glucose 10 Tab/Tube) 4 - 8 tab PO UD PRN; Protocol PRN Reason: Hypoglycemia Treatment Stop: 02/08/24 00:47 Heparin Sodium (Porcine) (Heparin Sod 5,000 Unit/0.5 Ml Vial) 5,000 units SQ Q8 MALISSA Stop: 02/08/24 05:59 Last Admin: 01/11/24 06:21 Dose: Not Given Promethazine HCl 6.25 mg/ (Sodium Chloride) 50.25 mls @ 201 mls/hr IV Q6H PRN PRN Reason: Nausea And Vomiting Stop: 02/07/24 23:37 Insulin Aspart (Insulin Aspart Per Unit Charge) 0 units SC Q6 MALISSA Stop: 02/10/24 06:29 Last Admin: 01/11/24 11:53 Dose: Not Given Ipratropium [place] (Ipratropium [place] Neb Soln 0.02% 0.5mg/2.5ml Vial) 0.5 mg INH Q4H PRN PRN Reason: sob wheeze Stop: 02/07/24 23:38 Levalbuterol HCl (Levalbuterol 1.25 Mg/3 Ml Neb) 1.25 mg NEB Q4H PRN PRN Reason: sob wheeze Stop: 02/07/24 23:38 Levothyroxine Sodium (Levothyroxine Sodium 125 Mcg Tablet) 125 mcg PO DAILYBB MALISSA Stop: 02/08/24 06:29 Last Admin: 01/11/24 04:58 Dose: 125 mcg Metoprolol Succinate (Metoprolol Succ 25mg Ext Rel Tab) 25 mg PO DAILY MALISSA Stop: 02/08/24 08:59 Last Admin: 01/09/24 07:54 Dose: Not Given Miscellaneous (Carbohydrates For Hypoglycemia ) 15 - 30 gm PO UD PRN PRN Reason: Hypoglycemia Protocol Stop: 02/08/24 00:47 Nitroglycerin (Nitroglycerin Sl 0.4 Mg/Tab Tab) 0.4 mg SL TID PRN PRN Reason: Chest Pain Stop: 02/08/24 01:58 Pantoprazole Sodium (Pantoprazole 40 Mg Tab) 40 mg PO DAILY [facility] Stop: 02/08/24 08:59 Last Admin: 01/11/24 07:51 Dose: 40 mg Sacubitril/Valsartan (Valsartan/Sacubitril 26/24mg Tab) 1 tab PO BID MALISSA Stop: 02/10/24 20:59 Tramadol HCl (Tramadol Hcl 50 Mg Tablet) 25 - 50 mg PO Q4H PRN PRN Reason: Pain Stop: 02/07/24 23:37
--- NOTE | 2024-01-11 15:24 | History & Physical Bridge Note ---
Date of Service January 11, 2024 History & Physical Bridge Note I have examined the patient, reviewed the History & Physical and in the interval since the performance of the History & Physical I have noted the following changes of clinical significance: pt was admitted to the hospital due to sustained VT and his echo showed worsening EF; he was recommended an ICD prior to discharge. A formal shared decision making process was performed with Bora Pope today utilizing the IDECIDE ICD evidence based tool from [employer] [place] [employer]. The discussion that followed was collaborative: detailing the information, risks, and benefits provided by the tool. We also discussed the values and preferences of Bora Pope to build a consensus regarding the preferred treatment plan. A decision was reached to proceed with dual ICD
[2024-01-11] MEDS: VANCOMYCIN HCL 1000MG/20ML VIAL ONE (15:48)
[2024-01-11] MEDS: ceFAZolin 330 MG/ML 1 GM VIAL ONE (15:48)
[2024-01-11] MEDS: diphenhydrAMINE 50 MG/ML VIAL ONE (15:48)
[2024-01-11] MEDS: WATER, STERILE FOR INJ 10 ML VIAL ONE (15:48)
[2024-01-11] MEDS: BUPIVACAINE 0.25% PF 30 ML VIAL ONE ×2 (15:48)
[2024-01-11] MEDS: methylPREDNISolone 125 MG/2 ML VIAL ONE (15:49)
[2024-01-11] MEDS: fentaNYL citrate PF 100 MCG/2 ML VIAL ONE (16:20)
[2024-01-11] MEDS: MIDAZOLAM HCL 5 MG/ML 1 ML VIAL ONE (16:20)
--- NOTE | 2024-01-11 16:23 | Post Anesthesia Assessment ---
Date of Service January 11, 2024 Post Sedation Assessment Vital Signs Temp Pulse Pulse Resp BP Pulse Ox O2 Del Method 01/11/24 15:13 62 14 170/105 H 95 Room Air 01/11/24 12:00 36.3 C L 61 20 152/85 H 95 Room Air 01/11/24 08:00 36.6 C 64 22 154/86 H 94 Room Air 01/11/24 04:09 36.6 C 68 18 142/90 H 94 Room Air 01/11/24 00:11 36.7 C 58 L 18 151/87 H 94 Room Air 01/11/24 00:00 64 01/10/24 20:15 36.7 C 66 18 163/92 H 95 Room Air Recovery Score Activity: Moves 4 extremities Respiration: Deep Breath/Cough Circulation: +/-20% PreAnes Value Consciousness: Fully Awake Oxygen Saturation: > 92% On Room Air Discharge Sedation Level of Care: Fast Track Phase II Post Sedation Plan On clinical assessment, the patient appears to have tolerated the sedation without complications. Patient is recovering as anticipated. Patient will continue to be monitored by nursing and may be discharged when sedation discharge criteria are met per below protocol. Upon Completions of procedure up to 15 minutes continue every 5 minute vital signs and the P.A.R. score; then discharge to a Phase I or Fast Track to Phase II per the following guidelines: * Discharge Patient to appropriate Phase II area if PAR is 8 or greater or return to pre- procedure baseline. The post - procedure orders will be as directed. * If PAR score is less than 8 or not return to pre-procedure baseline then patient will follow Phase I monitoring till PAR is reached for Phase II. The Phase I may be done in procedure room or may call to secure a Phase I area. * If naloxone or flumazenil are used for reversal, hold in Phase I for continued monitoring from when last reversal dose was given for a minimum of 60 minutes or longer pending the nurse and/or physician discretion of patient condition before discharge to Phase II. Please call the Sedation Physician to re-evaluate and complete post-note for discharge to Phase II area. Do NOT discharge from procedure sedation or Phase 1 until post- sedation evaluation note is complete by procedure /sedation MD Sedation Discharge Instructions to be given to the patient at discharge to home.
--- NOTE | 2024-01-11 18:33 | XRay Report ---
XR chest 1V portable HISTORY: 83 years-old Male s/p ICD ensure no PTX status post placement of a left subclavian pacer/AI CD COMPARISON: 01/08/2024 TECHNIQUE: AP view of the chest FINDINGS: Status post placement of a dual lead left subclavian pacer/AICD. Resolution of the pulmonary vascular congestion. There is no postprocedural pneumothorax identified.. No pleural effusion, airspace conso lidation or pulmonary edema. Bones appear intact. IMPRESSION: Status post placement of a dual-lead left subclavian pacer/AICD. No pneumothorax. ACT 112: Negative or not required by law. The above report was generated using voice recognition software. It may contain grammatical, syntax o r spelling errors. Electronically signed by: Gumaro Padron M.D. 01/11/2024 6:32 PM
[2024-01-11] MEDS: VALSARTAN/SACUBITRIL 26/24MG TAB PO SCH (20:11)
[2024-01-12 06:34] LABS: Basophils # (auto) 0.01 K/uL (0.00-0.20); Basophils % (auto) 0.1 %; Hematocrit (blood only) 41.9 % (42.0-52.0); Hemoglobin 14.2 g/dl (14.0-18.0); Immature Granulocytes # (auto) 0.04 K/uL (0.01-0.20); Immature Granulocytes % (auto) 0.3 %; Lymphocytes # (auto) 0.94 K/uL (1.20-3.40); Lymphocytes % (auto) 8.2 %; Mean Corpuscular Hemoglobin 28.4 pg (25.0-34.0); Mean Corpuscular Hgb Conc 33.9 g/dL (32.0-36.0); Mean Corpuscular Volume 83.8 fL (80.0-100.0); Monocytes # (auto) 0.77 K/uL (0.11-0.59); Monocytes % (auto) 6.7 %; Neutrophils # (auto) 9.68 K/uL (1.40-6.50); Neutrophils % (auto) 84.7 %; Platelet Count 215 K/uL (130-400); RDW Coefficient of Variation 13.9 % (11.5-14.5); RDW Standard Deviation 42.5 fL (36.4-46.3); White Blood Count 11.44 K/ul (4.8-10.8)
[2024-01-12 06:43] LABS: BUN Creatinine Ratio 17.4 (10-20); Calcium 8.9 mg/dl (8.6-10.3); Creatinine Clr Calc Pharmacy 50.1 ml/min; Est GFR (African American) 72.4 ml/min; Est GFR (Non-African American) 62.4 ml/min; Potassium 4.3 mmol/L (3.5-5.1)
[2024-01-12 07:21] VITALS: BP 122/73; RESP 19; TEMP 98.1; O2SAT 94
--- NOTE | 2024-01-12 10:48 | Cardiology Progress Note ---
Date of Service January 12, 2024 Assessment & Plan (1) Ventricular tachycardia: (2) Ischemic cardiomyopathy: (3) Acute systolic (congestive) heart failure: Plan 83-year-old male with ischemic cardiomyopathy presenting and sustained ventricular tachycardia of undetermined duration. Patient unaware of tachypalpitations but feeling poorly for several days prior. Successful cardioversion. No acute EKG changes post and this morning Resting bradycardia present however Echocardiogram with extensive inferior posterior Exam consistent with mild to moderate volume overload rales basilar right lung abdominal distention Plan: Discussed above findings in detail with patient. Discussed indications for pacer defibrillator which patient adamantly declines. Not interested in heart catheterization as well Will initiate amiodarone at 200 mg twice per day orally. Hold meto prolol succinate. Resting bradycardia may ultimately be a concern Diuresis with IV furosemide first dose now Add ROSARIO/ARB versus Entresto after further discussion with patient 01/10/2024 Clinically improved no further arrhythmias other than ventricular ectopy and mild bradycardia Plan continue amiodarone 20 mg twice per day Pacer defibrillator tomorrow Add losartan 25 mg p.o. daily beginning today. Will assess renal function and assess financial feasibility of Entresto Daily weights and I's and O's Likely ischemic workup post discharge 01/11/2024 Clinically improving issues addressed as follows 1. Sustained ventricular tachycardia: Tolerating amiodarone 200 mg twice per day with planned pacer defibrillator later today 2. Ischemic cardiomyopathy with reduced ejection fraction. No symptoms of ischemia currently. Medications adjusted with the addition of losartan but reaching out to case management to assess cost efficacy of Entresto 3. Chronic renal insufficiency 4. Transient systolic heart failure clinically improved after single dose of diuresis, resolve of arrhythmia. CHF instructions to be provided 01/12/2024 1. Sustained ventricular tachycardia: Status post pacer defibrillator uneventfully. No subsequent arrhythmias. Plan discharge on amiodarone 200 mg twice per day x 1 week then daily. Resume metoprolol succinate at 12.5 mg daily 2. Ischemic cardiomyopathy with reduced ejection fraction. No symptoms of ischemia currently. Discharge on Entresto current dosing twice per day 3. Chronic renal insufficiency clinically improved 4. Transient systolic heart failure clinically improved after single dose of diuresis, resolve of arrhythmia. CHF instructions to be provided Follow-up with cardiology 3 to 4 weeks, device clinic Stable for discharge today Admission and Anticipated Discharge Date Admission Date: January 08, 2024 Subjective Patient was seen and examined, chart, medications, telemetry reviewed No complaints overnight. Tolerated new medication changes. Underwent pacer defibrillator insertion yesterday uneventfully Telemetry with sinus rhythm intermittent pacing and ventricular ectopy no sustained arrhythmias No dyspnea or chest pain, ambulatory in room Review of Systems Review of Systems: All systems reviewed & are unremarkable except as noted in Subjective Physical Exam Constitutional: no acute distress Eyes: PERRL, conjunctivae normal, anicteric sclerae ENMT: external ear and nose normal, oropharynx normal Neck: trachea midline, no thyromegaly Respiratory: normal respiratory effort, lungs clear to auscultation Auscultation: + rales and + rhonchi (Right base) Cardiovascular: Rate/Rhythm: regular rate and regular rhythm Heart Sounds: normal S1 and normal S2 Extremities: no edema Chest (Breasts): Chest: + pacemaker (Implantation site bandaged no palpable hematoma or drainage) Gastrointestinal (Abdomen): normal bowel sounds, soft, nontender, no hepatosplenomegaly Musculoskeletal: no cyanosis or clubbing, extremities motor strength 5/5 Results & Data Vital Signs (Past 12 Hours) Vital Signs Temp Pulse Pulse Pulse Resp BP Pulse Ox 01/12/24 07:20 36.7 C 62 19 122/73 94 01/12/24 03:40 36.5 C 51 L 16 122/71 92 01/12/24 00:12 73 01/12/24 00:00 36.5 C 57 L 18 145/76 H 95 01/12/24 00:00 O2 Del Method 01/12/24 07:20 Room Air 01/12/24 03:40 Room Air 01/12/24 00:12 01/12/24 00:00 Room Air 01/12/24 00:00 Room Air Laboratory Results Laboratory Results - last 24 hr 01/11/24 01/11/24 01/11/24 11:26 17:01 20:01 WBC RBC Hgb Hct MCV MCH MCHC RDW Std Deviation RDW Coeff of Adam Plt Count MPV Immature Gran % (Auto) Neut % (Auto) Lymph % (Auto) [place] % (Auto) Eos % (Auto) Baso % (Auto) Neut # (Auto) Lymph # (Auto) [place] # (Auto) Eos # (Auto) Baso # (Auto) Immature Gran # (Auto) Sodium Potassium Chloride Carbon Dioxide Anion Gap BUN Creatinine Est Cr Clr Drug Dosing Est GFR ( Amer) Est GFR (Non-Af Amer) BUN/Creatinine Ratio Glucose POC Glucose 86 89 156 H Calcium Magnesium 01/12/24 01/12/24 06:07 07:20 WBC 11.44 H RBC 5.00 Hgb 14.2 Hct 41.9 L MCV 83.8 MCH 28.4 MCHC 33.9 RDW Std Deviation 42.5 RDW Coeff of Adam 13.9 Plt Count 215 MPV 11.0 Immature Gran % (Auto) 0.3 Neut % (Auto) 84.7 Lymph % (Auto) 8.2 [place] % (Auto) 6.7 Eos % (Auto) 0.0 Baso % (Auto) 0.1 Neut # (Auto) 9.68 H Lymph # (Auto) 0.94 L [place] # (Auto) 0.77 H Eos # (Auto) 0.00 Baso # (Auto) 0.01 Immature Gran # (Auto) 0.04 Sodium 136 Potassium 4.3 Chloride 103 Carbon Dioxide 26 Anion Gap 7 BUN 19 Creatinine 1.09 Est Cr Clr Drug Dosing 50.1 Est GFR ( Amer) 72.4 Est GFR (Non-Af Amer) 62.4 BUN/Creatinine Ratio 17.4 Glucose 132 H POC Glucose 116 H Calcium 8.9 Magnesium 2.0
--- NOTE | 2024-01-12 13:09 | Hospitalist Progress Note ---
Date of Service January 12, 2024 Assessment & Plan (1) Ventricular tachycardia: Plan: Ventricular tachycardia Acute on chronic systolic heart failure Ischemic cardiomyopathy S/P successful cardioversion in ED Troponin elevation likely demand ischemia secondary to above Possible NSTEMI CXR: Cardiomegaly with mild congestive change. ECHO: Left ventricle is normal in size. Extensive inferior, inferoseptal, posterior infarct with scar and akinesis involving the basilar and mid segments. All other segments mildly hypokinetic. Left ventricle systolic function is moderate to severely reduced. EF 20 to 25%. Aortic valve sclerosis mild, without significant stenosis. Mild aortic regurgitation. Mild mitral regurgitation, moderate tricuspid regurgitation. Patient not interested in ICD, cardiac catheterization Started on amiodarone 200 mg twice a day Hold metoprolol for now Received IV Lasix started on losartan 25 mg daily and will be assessed by the cloth bale header for initiating Entresto Need to be started on Entresto as able Appreciate cardiology input Remains hemodynamically stable this morning Denies any symptoms whatsoever and did not have any arrhythmias Will go for AICD placement this afternoon Status post AICD placement yesterday and since then he has been doing much better Medications wire updated by the cloth bale header and he was cleared for discharge this afternoon He denies any symptoms and will be discharged this afternoon with the current medications Possible Aspiration Chest x-ray showed no signs of pneumonia Empirically on Augmentin Will continue antibiotic until the pacemaker implantation is done His Augmentin was continued for another 5 days on discharge JESSIKA on CKD stage III Cr 1.4 today Monitor renal function Avoid nephrotoxic agents as able Creatinine is minimally up at 1.58 likely secondary to dehydration Creatinine remains stable DM II New diagnosis HbA1c 6.7 Continue insulin while hospitalized Monitor BGs- blood sugar has been running around 113 CAD Hypertension Hyperlipidemia Continue aspirin, statin Resume metoprolol as able Monitor blood pressure closely Hypothyroidism Elevated TSH, normal T4 Continue levothyroxine Needs repeat thyroid function test as outpatient in 3 to 6 weeks H/O upper extremity DVT Previously on Coumadin Colon cancer S/P Surgery Past Tobacco Abuse DVT Px: Heparin SQ Code Status Full code Admission and Anticipated Discharge Date Admission Date: January 08, 2024 Subjective 01/10/2024 Patient was seen and examined, chart, medication, telemetry reviewed. Feels well this morning. No chest pains, shortness of breath, tachypalpitations. Telemetry sinus rhythm with complex ventricular ectopy only. Respiratory status improved per patient ambulatory in room without difficulty Renal function stable with losartan 01/11/2024 The patient was seen and examined in ICU He remains hemodynamically stable and denies any significant symptoms he will have AICD placed this afternoon 01/12/2024 The patient was seen and examined in telemetry unit He is status post AICD placement and has been doing fine He denies any symptoms of chest pain, palpitation or shortness of breath He did not have any arrhythmias on monitor He will be discharged home this afternoon Review of Systems Review of Systems: all systems reviewed and are unremarkable except as noted below Physical Exam Physical Exam: standing beside the bed without any acute distress Constitutional: well developed and well nourished; not ill appearing Eyes: PERRL, conjunctivae normal, anicteric sclerae ENMT: external ear and nose normal, oropharynx normal Neck: trachea midline, no thyromegaly Respiratory: no respiratory distress Auscultation: lungs clear to au scultation bilaterally Cardiovascular: Rate/Rhythm: regular rate and regular rhythm; not tachycardic Heart Sounds: normal S1 and normal S2; no murmur Extremities: no edema Gastrointestinal (Abdomen): Inspection/Auscultation: normal bowel sounds; abdomen not distended Percussion/Palpation: abdomen soft; abdomen nontender Neurologic: normal touch/pain/proprioception and moves all extremities; no focal motor deficits Psychiatric: A+Ox3, euthymic affect Lymphatic: no cervical or axillary lymphadenopathy Results & Data Results & Data Vital Signs (Past 12 Hours) Vital Signs Temp Pulse Resp BP Pulse Ox O2 Del Method 01/12/24 07:20 36.7 C 62 19 122/73 94 Room Air 01/12/24 03:40 36.5 C 51 L 16 122/71 92 Room Air
[2024-01-12 13:33] VITALS: PULSE 57
--- NOTE | 2024-01-13 07:40 | Discharge Summary ---
Date of Service January 13, 2024 Admission HPI Per Admitting Provider History obtained from patient, family, and records. Medical history significant for chronic systolic heart failure secondary to ischemic cardiomyopathy (EF 40-44%, TTE 2017), CAD, hypertension, hyperlipidemia, COPD, history of upper extremity DVT status post Coumadin, prediabetes, hypothyroidism, CRI (baseline creatinine 1.5), colon cancer status post surgery, GERD, BPH, urolithiasis, past tobacco abuse. Last confinement May 2014 inferior wall [place]. 100% occlusion of RCA on cardiac cath. Failed attempt at thrombectomy. Medical management recommended. Gross hematuria noted during confinement. 1 week history of junky cough symptoms. Not sure about sick contacts as patient accompanies to doctors' appointments as per family. Patient admits to worsening cough at night lying down and with water/food int yumiko. 2 days ago, patient noted achy substernal pain without palpitations. Some shortness of breath. Chest pain different from heart attack because it did not go to the arms as per family. 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 Heart rate 180s upon arrival at the ER. Wide-complex tachycardia on EKG as per ER provider. No response to multiple doses of adenosine. SBP later noted to be 80s. Patient subsequently cardioverted. Patient currently NSR. IV amiodarone initiated at the ER. 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 tach, ischemic cardiomyopathy status post ICD placement Discharge Exam standing beside the bed without any acute distress Constitutional well developed and well nourished; not ill appearing Eyes PERRL, conjunctivae normal, anicteric sclerae ENMT external ear and nose normal, oropharynx normal Neck trachea midline, no thyromegaly Respiratory no respiratory distress Auscultation: lungs clear to auscultation bilaterally Cardiovascular Rate/Rhythm: regular rate and regular rhythm; not tachycardic Heart Sounds: normal S1 and normal S2; no murmur Extremities: no edema Gastrointestinal (Abdomen) Inspection/Auscultation: normal bowel sounds; abdomen not distended Percussion/Palpation: abdomen soft; abdomen nontender Neurologic normal touch/pain/proprioception and moves all extremities; no focal motor deficits Psychiatric A+Ox3, euthymic affect Lymphatic no cervical or axillary lymphadenopathy Discharge Data Allergies Allergy/AdvReac Type Severity Reaction Status Date / Time iodine Allergy Intermediate RASH Verified 01/09/24 01:08 meperidine Allergy Intermediate RASH Verified 01/09/24 01:08 Sulfa (Sulfonamide Allergy Intermediate hives Verified 01/09/24 01:08 Antibiotics) Consultations 01/08/24 22:28 ED Decision to Admit Stat 01/08/24 23:38 Consult Cardiology Routine Procedures Performed Operation Date: 01/11/24 15:00 Actual Procedures p ICD Insertion Single or Dual - Maribell Guzman DO s Venogram, Unilateral - Maribell Guzman DO Ordered Studies 01/11/24 07:45 EP Lab Images for PACS ONCE Hospital Course (1) Ventricular tachycardia: Ventricular tachycardia Acute on chronic systolic heart failure Ischemic cardiomyopathy S/P successful cardioversion in ED Troponin elevation likely demand ischemia secondary to above Possible NSTEMI CXR: Cardiomegaly with mild congestive change. ECHO: Left ventricle is normal in size. Extensive inferior, inferoseptal, posterior infarct with scar and akinesis involving the basilar and mid segments. All other segments mildly hypokinetic. Left ventricle systolic function is moderate to severely reduced. EF 20 to 25%. Aortic valve sclerosis mild, without significant stenosis. Mild aortic regurgitation. Mild mitral regurgitation, moderate tricuspid regurgitation. Patient not interested in ICD, cardiac catheterization Started on amiodarone 200 mg twice a day Hold metoprolol for now Received IV Lasix started on losartan 25 mg daily and will be assessed by the bilingual social worker for initiating Entresto Need to be started on Entresto as able Appreciate cardiology input Remains hemodynamically stable this morning Denies any symptoms whatsoever and did not have any arrhythmias Will go for AICD placement this afternoon Status post AICD placement yesterday and since then he has been doing much better Medications wire updated by the bilingual social worker and he was cleared for discharge this afternoon He denies any symptoms and will be discharged this afternoon with the current medications Possible Aspiration Chest x-ray showed no signs of pneumonia Empirically on Augmentin Will continue antibiotic until the pacemaker implantation is done His Augmentin was continued for another 5 days on discharge JESSIKA on CKD stage III Cr 1.4 today Monitor renal function Avoid nephrotoxic agents as able Creatinine is minimally up at 1.58 likely secondary to dehydration Creatinine remains stable DM II New diagnosis HbA1c 6.7 Continue insulin while hospitalized Monitor BGs- blood sugar has been running around 113 CAD Hypertension Hyperlipidemia Continue aspirin, statin Resume metoprolol as able Monitor blood pressure closely Hypothyroidism Elevated TSH, normal T4 Continue levothyroxine Needs repeat thyroid function test as outpatient in 3 to 6 weeks H/O upper extremity DVT Previously on Coumadin Colon cancer S/P Surgery Past Tobacco Abuse DVT Px: Heparin SQ Code Status Full code Total Time Total Time Spent Total Time Spent (In Minutes): 35 minutes Discharge Plan Discharge Items Patient Disposition: Home - Self-Care Reason For Visit: [place] Discharge Diagnosis: V. tach, ischemic cardiomyopathy status post ICD placement Condition on Discharge: Good Activity: As commented below Activity Comment: do not raise the left elbow over the left shoulder for 1 month Lifting: No more than 10 pounds Lifting Comment: do not lift more than 5 pounds with the left arm for 2 weeks Bathing: Keep incision dry Bathing Comment: keep dressing on and dry until wound check next week Non-emergency contact: Primary Care Provider Call non-emergency contact if: you have any medication questions and your symptoms worsen Follow-up/Referrals: Donte Looney MD [Primary Care Provider] - Diet: Heart Healthy Addtl Attending Provider Instructions: Device and wound check at [facility] Cardiology next week Please take precautions to avoid falls Please take your medications as advised Amiodarone should be continued 200 mg twice daily for a week then 200 mg daily Entresto has been started Metoprolol succinate will be continued as 12.5 mg daily Please keep appointments with the healthcare provider Pending Studies at Discharge: No Stand-Alone Forms: [facility], Smoking Cessation Medications and DC Order Prescriptions: New metoprolol succinate 25 mg Tablet Extended Release 24 Hr 12.5 mg PO DAILY Qty: 30 0RF amoxicillin-pot clavulanate 875-125 mg Tablet 1 tab PO BIDM Qty: 10 0RF Entresto 24-26 mg Tablet 1 tab PO BID Qty: 60 0RF amiodarone 200 mg Tablet 200 mg PO UD Qty: 40 0RF Rx Instructions: 1 tablet twice daily for 7 days and then 1 tablet daily thereafter Continued prednisone 50 mg tablet 50 mg PO PREOP PRN (Reason: Allergic Reaction) Rx Instructions: for iodine allergy atorvastatin 80 mg tablet 80 mg PO DAILY doxazosin 8 mg tablet 8 mg PO HS famotidine 20 mg tablet 20 mg PO DAILY levothyroxine 125 mcg tablet 125 mcg PO DAILYBB omeprazole 20 mg capsule,delayed release(DR/EC) 20 mg PO DAILY furosemide 20 mg tablet 20 mg PO DAILY acetaminophen 500 mg Tablet 500 mg PO Q8 PRN (Reason: Pain) triamcinolone acetonide 0.1 % Cream 1 applic TOPICAL BID PRN (Reason: Pain) diphenhydramine HCl [Benadryl] 25 mg Capsule 25 mg PO PRN (Reason: Allergic Reaction) Rx Instructions: [address] scan nitroglycerin 0.4 mg Tablet, Sublingual 0.4 mg sublingual TID PRN (Reason: Chest Pain) aspirin 81 mg Tablet 81 mg PO HS finasteride 5 mg Tablet 5 mg PO DAILY diclofenac sodium 1 % Gel 2 g TOPICAL QID PRN (Reason: Pain) Rx Instructions: apply to single elbow, wrist or hand; for hand includes palm/fingers/back of hand Discontinued metoprolol succinate 25 mg tablet extended release 24 hr 25 mg PO DAILY Discharge Orders: Discharge Order (Routine); Ordered 01/12/24 Ordered By: Dev Hogan Discharge Order- [facility] (Routine); Ordered 01/12/24 [facility] Patient Handouts: A1C Admission Data Admit Date/Time: 01/08/24 23:36 Attending Provider: Dev Hogna Admit Provider: Ari Parrish Primary Care Provider: Donte Looney Other Providers: Angelica Cain; Ari Parrish; Delmer Cho; Adolfo Patel Other Interventions: Discharge Summary Assessment (RN) Last Done: 01/12/24 13:32
--- NOTE | 2024-01-13 18:37 | Electrocardiogram Report ---
Test Reason : Blood Pressure : / mmHG Vent. Rate : 069 BPM Atrial Rate : 069 BPM P-R Int : 208 ms QRS Dur : 100 ms QT Int : 444 ms P-R-T Axes : 004 -19 -86 degrees QTc Int : 475 ms Normal sinus rhythm Inferior infarct (cited on or before 17-MAY-2014) Anterior infarct (cited on or before 17-MAY-2014) Abnormal ECG When compared with ECG of 10-JAN-2024 05:36, Premature ventricular complexes are no longer Present ST less depressed in Lateral leads T wave inversion no longer evident in Lateral leads Confirmed by Raul Valdivia ([id number]) on 01/13/2024 6:36:47 PM Referred By: REFERRED SELF Confirmed By:Raul Valdivia
--- NOTE | 2024-01-29 13:40 | Operative Report ---
Post Operative Report DATE OF PROCEDURE: 01/11/2024. PREOPERATIVE DIAGNOSES: Sustained VT, ICM, Sinus bradycardia, Chronic heart failure with preserved EF NYHA Class II POSTOPERATIVE DIAGNOSES: same PROCEDURE: Dual chamber rate responsive implantable cardiac defibrillator under fluoroscopic guidance along with a peripheral venogram SURGEON: Maribell Guzman DO. ENVIRONMENTAL LAWYER: None. ANESTHESIA: Monitored conscious sedation administered under my supervision by Mono Kyle. Start time 15:41 end time 16:21. A total of 3 mg of Versed and 75 mcg of fentanyl. INTRAVENOUS FLUIDS: 90 mL. CONTRAST: 10 mL. ANTIBIOTICS: 1 gram ancef BLOOD LOSS: 40 mL. URINE OUTPUT: None. SPECIMENS: None. FINDINGS: See below. DRAINS: None. COMPLICATION: None CONDITION: Stable INDICATIONS: This is a 83-year-old male with a past medical history for ICM, Sinus bradycardia, chronic heart failure with preserved EF-NYHA Class II. Pat ient admitted due to sustained VT and was recommended a dual chamber ID prior to hospital discharge. A formal shared decision making process was performed with Bora Poep today utilizing the IDECIDE ICD evidence based tool from [employer] [place] [employer] Patient Centered Decisions. The discussion that followed was collaborative: detailing the information, risks, and benefits provided by the tool. We also discussed the values and preferences of Bora Pope to build a consensus regarding the preferred treatment plan. A decision was reached to proceed with dual chamber ICD. CONSENT: Consent was obtained prior to the patient going into electrophysiology lab. The patient was informed of the risks, benefits, and alternatives to the procedure. Risks include, but not limited to, sudden cardiac , cardiac arrhythmias, myocardial infarction, injury to blood vessels, chamber of the heart and lung, bleeding and infection. The patient understood these risks and agreed to proceed as planned. Informed consent was obtained. DESCRIPTION OF PROCEDURE: The patient was brought into the electrophysiology lab in a fasting state. The was connected to continuous cardiac monitoring. A time-out was performed to ensure patient's identity and procedure correctly. The was prepped and draped over the left ankle space in normal surgical standard fashion. Monitored conscious sedation was given throughout the procedure for patient's comfort level. [place] precautions were maintained throughout the procedure. The received prophylactic antibiotics prior to incision. A 20 mL of 1% lidocaine-bupivacaine mixture were given in the left deltopectoral groove. An incision was made in the left upper groove. The blunt dissection was performed down to the pectoralis muscle. Then, using blunt dissection over the pectoralis muscle within the pectoralis fascia, a defibrillator pocket was created. Then, a peripheral venogram was performed to identify the axillary vein. Venous axillary access was obtained through a needlestick without any problems. Then a 6 portuguese sheath was inserted over the guidewire without any resistance; the dilator was removed and a second guidewire was inserted through the 6 portuguese sheath to allow for retained access. The sheath was then removed. Then a 7-Luxembourger sheath was inserted over one of the guidewire of the more lateral stick, the guidewire and dilator removed. The right ventricular defibrillator lead was then advanced into right ventricle and positioned into the ventricular apex under fluoroscopic guidance. There was adequate pacing and sensing thresholds and no diaphragmatic output pacing. Of note I did have to reposition if one time. The 7-Luxembourger sheath was peeled away and the lead was fixated to pectoralis muscle using 0 silk suture. Then the 6 portuguese sheath was advanced through the retained guidewire of the more lateral stick. The guidewire and dilator were removed. Then the Right atrial lead was advanced into the right atrium and positioned into the right atrial appendage. There was adequate pacing and sensing thresholds. There was no diaphragmatic situation with high out put pacing. The 7 portuguese sheath was peeled away and the lead was fixated to the pectoralis muscle using 0 silk suture. The defibrillator pocket was then flushed with copious amounts of vancomycin and saline wash and inspected for hemostasis. The pulse generator was then attached to the leads making sure the pins were in appropriate position, passed set screws, and set screws were all tightened. Then, the defibrillator was placed in the pocket, making sure the leads were lying flat beneath the device. An incision was closed in a 3-layer fashion using 2-0 Vicryl interrupted suture, followed by 3-0 Vicryl interrupted suture, followed by 4-0 Monocryl running stitch. Then a primaseal dressing was placed over the incision. EQUIPMENT: 1. The pulse generator is a Viri Samuel DR, serial number [id number]. 2. Right atrial lead Tendril STS Ref: [id number]; SN: [id number] 3. Right ventricular ICD lead is a Durata [id number]; SN: [id number] INTRAPROCEDURAL FINDINGS: 1. Right atrial lead: P waves 1.8 mV; impedance 463 ohms; threshold 0.6V @ 0.5ms 2. Right ventricular defibrillator lead, R waves 14.3 millivolts, impedance 745 ohms, threshold 1 volts at 0.5 milliseconds. FINAL MEASUREMENTS THROUGH THE DEVICE. 1. Right atrial lead; p waves 1.3 mV; impedance 430 ohms; threshold 1.0V @ 0.5ms 2. Right ventricular defibrillator lead, R waves 11.9 millivolts, impedance 650 ohms, threshold 0.75 volts at 0.5 milliseconds. FINAL PARAMETERS: DDDR 60/120. Right atrial and ventricular amplitude 3.5 volts, pulse width 0.5 milliseconds, sensitivity auto A VT monitor zone 144 beats per minute for 30 detection intervals and VF zone at 222 beats per minute for 20 detection intervals and a VT zone at 171 bpm for 20 NID. IMPRESSION: Successful dual chamber rate responsive implantable cardiac defibrillator implant under fluoroscopic guidance along with peripheral venogram secondary to ICM, Sustacined VT, sinus bradycardia, Chronic heart failure with preserved EF NYHA Class II PLAN: Monitor the patient post-procedure. A 12-lead ECG, chest x-ray and recheck the device in a few hours. He is not to lift the left elbow or left shoulder for 1 month. He cannot lift more than 10 pounds with left arm for 2 weeks. He is to keep the dressing on and dry until his wound check next week.
== END 2024-01-12 14:17 | disposition home or self-care (01) | DRG 276 ==
LOC: ED 21:20 → EDINP 23:36 → SUATTDRO 23:36 → 1E 01-09 00:49 → 2S 01-12 00:02
PROC: EPB.ICD (2024-01-11 15:00)